=== PATIENT | male | born 1945 | race Caucasian/White ===

== ENCOUNTER → 2016-08-17 | Outpatient (CLI) | payer OTHER ==
[~2016-08-17] MED LIST: ASPEC81 PO; ATV1 PO; BRIM0.2S OPB; CARV25TA2 PO; FURO20TA PO; ISOS30TA3 PO; LEVO-14 PO; LISI-725 PO; LPT40 PO; LSX20 PO; MELO15TA10 PO; MULT-506 PO; NITR0.4S76 SL; NTRGSL/4 SL; PLV75 PO; POTA1CAP2 PO; ROSU20TA PO; TRAV0.00 OPB
== END | disposition home or self-care (01) ==
LOC: C.LABBC 08:13
PROVIDERS: ATTEND Urology
DX: N40.1 Benign prostatic hyperplasia with lower urinary tract symptoms (principal); Z12.5 Encounter for screening for malignant neoplasm of prostate

== ENCOUNTER 2016-08-30 11:05 | Inpatient (IN) | payer OTHER ==
[~2016-08-30] VITALS: Ht 167.6 cm; Wt 89.2 kg
[~2016-08-30 11:05] MED LIST changes: -ISOS30TA3 PO; -MULT-506 PO; -NTRGSL/4 SL; -ROSU20TA PO
[2016-08-30 12:12] LABS: HEMATOCRIT 43.7 % (42-52); MEAN CELL VOLUME 89.2 fL (80-100); MEAN CORPUSCULAR HEMOGLOBIN 32.9 pg (25-34); MEAN CORPUSCULAR HGB CONC 36.8 g/dl (32-36); MEAN PLATELET VOLUME 10.8 fL (7.4-10.4); PLATELET COUNT 180 K/uL (130-400); WHITE BLOOD COUNT 6.51 K/uL (4.8-10.8)
--- NOTE | 2016-08-30 12:15 | DIAGNOSTIC IMAGING REPORT ---
CHEST ONE VIEW PORTABLE CLINICAL HISTORY: syncope COMPARISON STUDY: 07/29/2016 FINDINGS: The heart is at the upper limits of normal in size. There is no lobar consolidation. There is no failure. There are no pleural effusions. Left basilar opacities are likely atelectatic.[ IMPRESSION: Linear left basilar opacities, likely atelectatic. No evidence of failure. No evidence of lobar consolidation Electronically signed by: Felix Moore M.D. 08/30/2016 12:13 PM Dictated Date/Time: 08/30/2016 12:12 PM
[2016-08-30 12:22] LABS: ALB/GLOB RATIO 1.1 (0.9-2); CREATININE 2.4 mg/dl (0.60-1.40); POTASSIUM 3.3 mmol/L (3.5-5.1)
[2016-08-30 12:25] LABS: CKMB/CK RATIO 1.9 (0-3.0)
[2016-08-30 12:29] LABS: INR 1.1 (0.9-1.1); PARTIAL THROMBOPLASTIN RATIO 0.9; PROTHROMBIN TIME (PATIENT) 11.7 SECONDS (9.0-12.0)
--- NOTE | 2016-08-30 12:29 | EMERGENCY ROOM VISIT NOTE ---
History Report prepared by Adelina: Yohana Henao Under the Supervision of: Dr. Iris Vallejo D.O. First contact with patient: 12:10 Chief Complaint: SYNCOPE Stated Complaint: SYNCOPE Nursing Triage Summary: pt to the ED with c/o not feeling well this am and then went to the gym and felt "out of sorts" and sat down and then passed out. no trauma, someone lowered him to the ground. no c/o pain hx previous AL and stent History of Present Illness The patient is a 71 year old male who presents to the Emergency Room via ambulance with complaints of a near syncopal episode that occurred this morning. The patient states that he was not feeling totally normal when he woke up this morning, although he was not feeling bad. He ate a banana and drank a half cup of coffee this morning and ended up going to the gym, although he was debating going back to bed due to not feeling great. He notes that he typically eats a bowl of cereal for breakfast. The patient did a bench press exercise, adductor and abductor exercises, and ran into a friend who he started talking to at the gym. While he was talking he started to feel slightly dizzy and sat down in a chair. His friend had her back to him for a minute and when she turned back around, the patient was slumped over in the chair and she caught him before he hit his head. An ambulance was called. He states that his pulse was initially week, but eventually seemed to improve. Upon arrival, he is feeling fine. He denies any previous episodes of dizziness or vertigo. He has been eating and drinking well recently. Denies supplement use or any new medications in the past few weeks. The patient notes that he had a heart attack this past January and had a stent placed at that time. The patient had some sharp chest pains this past July which seemed musculoskeletal but was hospitalized over night. He had a chest-pain work up including a stress test. The patient typically takes his medications in the morning with the exception of Plavix, which he takes at night. He forgot to take his dose last night so he took it with his medications this morning. Denies fevers, chills, chest pain, diarrhea, constipation, urinary symptoms, or other complaints. Source of History: patient Onset: this morning Position: other (global) Quality: other (syncope) Timing: other (episodic) Associated Symptoms: No chest pain, No chills, No diarrhea, No fevers, No urinary symptoms Review of Systems See HPI for pertinent positives & negatives. A total of 10 systems reviewed and were otherwise negative. Past Medical & Surgical Medical Problems: (1) Elevated troponin I level (2) Glaucoma (3) Hypertension (4) Non-STEMI (non-ST elevated myocardial infarction) (5) Seasonal allergies Family History Patient reports no known family medical history. Social History Smoking Status: Current Every Day Smoker Marital Status: Housing Status: lives with family Occupation Status: retired Current/Historical Medications Scheduled Aspirin (Aspirin EC Low Dose), 81 MG PO QAM Atorvastatin (Atorvastatin Calcium), 80 MG PO DAILY Carvedilol (Coreg), 25 MG PO BID Clopidogrel Bisulfate (Clopidogrel), 75 MG PO QAM Furosemide (Furosemide), 40 MG PO QAM Furosemide (Lasix), 20 MG PO QPM Lisinopril (Zestril), 20 MG PO DAILY Nitroglycerin (Nitroglycerin Lingual), 2 SPRAY SL DIRECTED Potassium Chloride (Potassium Chloride Er), 1 TAB PO DAILY Travoprost (Travatan Z), 1 DROPS OPB HS Scheduled PRN Levocetirizine Dihydrochloride (Levocetirizine Dihydrochl), 5 MG PO HS PRN for ALLERGIC REACTION Lorazepam (Lorazepam), 1 MG PO HS PRN for Sleep Meloxicam (Mobic), 15 MG PO DAILY PRN for Pain Miscellaneous Medications Brimonidine Tartrate-Timolol M (Combigan) Allergies Coded Allergies: Sulfa Antibiotics (Verified Allergy, Unknown, "Sulfa Drugs", 07/29/16) Physical Exam Vital Signs Date Time Temp Pulse Resp B/P Pulse Ox O2 Delivery O2 Flow Rate FiO2 08/30/16 14:08 62 16 149/90 96 Room Air 08/30/16 12:45 62 08/30/16 12:12 93 Room Air 08/30/16 11:49 62 126/75 69 115/68 70 122/65 08/30/16 11:16 68 08/30/16 11:09 36.5 66 16 141/87 95 Room Air Physical Exam HEENT: Head - normocephalic and atraumatic Pupils are equal, round, and reactive to light. Extraocular eye muscles are intact, and sclera are anicteric. Nose - moist nasal mucosa without discharge. Mouth - moist buccal mucosa. Oropharynx is nonerythematous and there is no tonsillar exudate or edema noted. Neck: Supple; no JVD, nuchal rigidity, cervical lymphadenopathy, or auscultated bruits. Heart: Regular rate and rhythm. There is a normal S1 and S2 with no murmurs, clicks, or gallops appreciated. Lungs: Clear to auscultation bilaterally with no wheezes, rales, or rhonchi. Abdomen: Soft, completely nontender, nondistended, with good bowel sounds. There are no palpable pulsatile masses or hepatosplenomegaly. There is no guarding, rigidity, or rebound noted. Extremities: No evidence of cyanosis, clubbing, or edema. There are easily palpable peripheral pulses. Skin: warm and dry with good turgor and no rashes. Medical Decision & Procedures ER Provider Diagnostic Interpretation: X-ray results as stated below per interpretation by me and the radiologist: CHEST ONE VIEW PORTABLE CLINICAL HISTORY: syncope COMPARISON STUDY: 07/29/2016 FINDINGS: The heart is at the upper limits of normal in size. There is no lobar consolidation. There is no failure. There are no pleural effusions. Left basilar opacities are likely atelectatic.[ IMPRESSION: Linear left basilar opacities, likely atelectatic. No evidence of failure. No evidence of lobar consolidation Electronically signed by: Felix Moore M.D. 08/30/2016 12:13 PM Dictated Date/Time: 08/30/2016 12:12 PM Laboratory Results Test 08/30/16 11:10 08/30/16 12:10 Globulin 3.9 gm/dl (2.5-4.0) Albumin/Globulin Ratio 1.1 (0.9-2) Thyroid Stimulating Hormone (TSH) 2.760 uIu/ml (0.300-4.500) Bedside Troponin I 0.110 ng/ml (0-0.045) Laboratory results per my review. Medications Administered Medications (Trade) Dose Ordered Sig/May Route Start Time Stop Time Status Last Admin Dose Admin Sodium Chloride 500 ml @ 999 mls/hr Q31M STAT IV 08/30/16 13:48 08/30/16 14:18 DC 08/30/16 14:10 999 MLS/HR Sodium Chloride (Nss 1000ml) 1,000 ml @ 250 mls/hr Q4H STAT IV 08/30/16 13:48 08/30/16 17:23 DC 08/30/16 14:41 250 MLS/HR Lorazepam (Ativan Tab) 1 mg HS PRN PO 08/30/16 14:45 08/31/16 15:22 DC 08/30/16 22:40 1 MG Procedure Medication: NSS 1000 ml @ 250 mls/hr IV, NSS 500 ml @ 999 mls/hr IV. ECG Indication: syncope (near syncope) Rate (beats per minute): 67 Rhythm: normal sinus Findings: PAC, PVC, RBBB ED Course 1212: The patient was evaluated in room C3. A complete history and physical examination were performed. Nursing notes and previous electronic medical records were reviewed. IV lock was established and labs were drawn as above. The patient was noted to be in bigeminy on the monitor. A twelve-lead EKG was performed. Patient went for a chest x-ray as described above. 1346: Upon reevaluation, the patient was resting comfortably. I discussed findings and results with the patient. He verbalized agreement of the treatment plan. 1348: Ordered NSS 1000 ml @ 250 mls/hr IV, NSS 500 ml @ 999 mls/hr IV. 1401: I spoke with Dr. Greenwood of the [facility] Hospital[facility] Service. The patient will be evaluated for further management and care. Medical Decision The patient is a 71 year old male who presents to the ED with an episode of near syncope. Differential diagnosis includes cardiac dysrhythmia, dehydration, hypoglycemia, medication side effects. Labs: point of care troponin .11, TSH 2.76, creatinine 2.4, up from 1.6, BUN 45 , glucose 121, potassium 3.3, coags are negative, no leukocytosis, stable H&H. This is a 71-year-old male patient who suffered a near-syncopal event at the gym today. The patient has a cardiac history with previous AL and stent placement. The patient had a near syncopal event today. On EKG, he had evidence of multifocal PVCs. Patient a mildly elevated troponin. I discussed the case with the [facility] Hospitalist and they will evaluate for further management to rule out cardiac dysrhythmia. Consults Time Called: 2400 Consulting Physician: Dr. Greenwood of the [facility] Returned Call: [address] Greenwood of the [facility] Hospitalist Service. The patient will be evaluated for further management and care. Impression Primary Impression: Near syncope Additional Impression: Multifocal PVCs Scribe Attestation The scribe's documentation has been prepared under my direction and personally reviewed by me in its entirety. I confirm that the note above accurately reflects all work, treatment, procedures, and medical decision making performed by me. Departure Information Dispostion Being Evaluated By Hospitalist Referrals An Castorena DO (PCP) Patient Instructions My [facility] Problem Qualifiers
[2016-08-30] MEDS ORDERED: SODIUM CHLORIDE 0.9% 1000ML 1,000 ML IV STA (13:48)
[2016-08-30] MEDS ORDERED: SODIUM CHLORIDE 0.9% 500ML 500 ML IV STA (13:48)
[2016-08-30] MEDS ORDERED: CETIRIZINE HCL 10 MG TAB PO PRN (14:45)
[2016-08-30] MEDS ORDERED: NITROGLYCERIN SL SPR 4.9 GM BTL SL SCH (14:45)
[2016-08-30] MEDS ORDERED: LORAZEPAM 1 MG TAB PO PRN (14:45)
[2016-08-30] MEDS ORDERED: NITROGLYCERIN 0.4 MG SL PER TAB CHARGE SL PRN (14:45)
[2016-08-30] MEDS ORDERED: LORAZEPAM 2 MG/ML 1 ML VIAL IV PRN (15:00)
[2016-08-30] MEDS ORDERED: MoRPHine SULFATE 2 MG/ML CARP IV PRN (15:00)
[2016-08-30] MEDS ORDERED: ZOLPIDEM TARTRATE 5 MG TAB PO PRN (15:00)
[2016-08-30] MEDS ORDERED: ONDANSETRON INJ 2 MG/ML 2 ML VIAL IV PRN (15:00)
[2016-08-30] MEDS ORDERED: DiphenhydrAMINE HCL 50 MG/ML VIAL IV PRN (15:00)
[2016-08-30] MEDS ORDERED: ACETAMINOPHEN 325 MG TAB PO PRN (15:00)
[2016-08-30] MEDS ORDERED: ALUMINUM/MAGNESIUM/SIMETH (MAALOX MAX) 30 ML UDC PO PRN (15:00)
[2016-08-30] MEDS ORDERED: PROMETHAZINE HCL INJ 12.5 MG in SODIUM CHLORIDE 0.9% 50ML 50 ML IV PRN (15:00)
[2016-08-30] MEDS ORDERED: MAGNESIUM HYDROXIDE SUSP 30 ML UDC PO PRN (15:00)
[2016-08-30 15:19] VITALS: O2SAT 96; Ht 167.6 cm; Wt 89.2 kg
--- NOTE | 2016-08-30 16:17 | History and Physical ---
History & Physical Date & Time of Service: Aug 30, 2016 at 16:07 Chief Complaint: Syncope Primary Care Physician: An Castorena DO History of Present Illness Source: patient The patient is a 71-year-old male who presents to the emergency department via ambulance after having a near syncopal episode at his gym earlier this morning. He reports that when he woke up this morning he was not feeling normal, but he thought if he went to the gym workout will be might feel better. On talking to a friend of his at the gym during the workout, he started to feel dizzy and she caught him as he was starting to collapse and sat him down in the chair. He does have a history of a heart attack in January 2016 when he had a stent placed. He was also hospitalized July due to sharp chest pains but the workup was negative at that time. Past Medical/Surgical History Medical Problems: (1) Glaucoma Status: Chronic (2) Hypertension Status: Chronic (3) Seasonal allergies Status: Chronic Family History Patient reports no known family medical history. Social History Smoking Status: Current Every Day Smoker Smokeless Tobacco Use: No Alcohol Use: none Drug Use: none Marital Status: Housing status: lives with family Occupational Status: retired Immunizations History of Tetanus Vaccine?: 02/2004 History of Pneumococcal: No History of Hepatitis B Vaccine: No Multi-Drug Resistant Organisms History of MDRO: No Allergies Coded Allergies: Sulfa Antibiotics (Verified Allergy, Unknown, "Sulfa Drugs", 07/29/16) Home Medications Scheduled Aspirin (Aspirin EC Low Dose), 81 MG PO QAM Atorvastatin (Atorvastatin Calcium), 80 MG PO DAILY Carvedilol (Coreg), 25 MG PO BID Clopidogrel Bisulfate (Clopidogrel), 75 MG PO QAM Furosemide (Furosemide), 40 MG PO QAM Furosemide (Lasix), 20 MG PO QPM Lisinopril (Zestril), 20 MG PO DAILY Nitroglycerin (Nitroglycerin Lingual), 2 SPRAY SL DIRECTED Potassium Chloride (Potassium Chloride Er), 1 TAB PO DAILY Travoprost (Travatan Z), 1 DROPS OPB HS Scheduled PRN Levocetirizine Dihydrochloride (Levocetirizine Dihydrochl), 5 MG PO HS PRN for ALLERGIC REACTION Lorazepam (Lorazepam), 1 MG PO HS PRN for Sleep Meloxicam (Mobic), 15 MG PO DAILY PRN for Pain Miscellaneous Medications Brimonidine Tartrate-Timolol M (Combigan) Review of Systems The patient denies chest pain, palpitations, shortness of breath,lower extremity swelling, vision change, hearing change, sore throat, fevers, chills, weight change, fatigue, nausea, vomiting, abdominal pain, pelvic pain, blood in urine or stool, dysuria, urinary frequency or urgency, memory loss, rash, abnormal bruising or bleeding, imbalance, focal weakness, numbness or tingling in arms or legs, arthralgias or myalgias, back or neck pain, night sweats, or allergy symptoms. The review of systems is otherwise negative other than for that already noted above, and at least 10 systems have been reviewed. Physical Exam Vital Signs Date Time Temp Pulse Resp B/P Pulse Ox O2 Delivery O2 Flow Rate FiO2 08/30/16 15:19 96 Room Air 08/30/16 14:08 62 16 149/90 96 Room Air 08/30/16 12:45 62 08/30/16 12:12 93 Room Air 08/30/16 11:49 62 126/75 69 115/68 70 122/65 08/30/16 11:16 68 08/30/16 11:09 36.5 66 16 141/87 95 Room Air The patient is awake, well-developed and adequately nourished, alert and oriented 3, normocephalic and atraumatic, lying in bed and in no acute distress. HEENT--PERRL, EOMI, mucous membranes moist, and oropharynx normal. Neck--supple, no JVD or bruits, thyroid normal, trachea midline, no adenopathy. Heart--normal S1 and S2, no extra beats, no murmurs, rubs or gallops. Lungs--clear bilaterally with good air movement, no respiratory distress, no accessory muscle use. Abdomen--normal bowel sounds and soft, nontender and nondistended, no hernias or masses, no organomegaly. Extremities--no cyanosis, clubbing or edema. There are good distal pulses b/l. Dermatologic--normal skin turgor, normal color, warm and dry, no abnormal lymph nodes, no rash. Neurologic--cranial nerves II through XII grossly intact, motor and sensory examination normal. Rheumatologic--normal range of motion, nontender, muscles and joints. Psychiatric--normal affect. Diagnostics Laboratory Results Results Past 24 Hours Test 08/30/16 11:10 08/30/16 12:10 08/30/16 14:49 Range/Units White Blood Count 6.51 4.8-10.8 K/uL Red Blood Count 4.90 4.7-6.1 M/uL Hemoglobin 16.1 14.0-18.0 g/dL Hematocrit 43.7 42-52 % Mean Corpuscular Volume 89.2 80-100 fL Mean Corpuscular Hemoglobin 32.9 25-34 pg Mean Corpuscular Hemoglobin Concent 36.8 32-36 g/dl RDW Standard Deviation 41.9 36.4-46.3 fL RDW Coefficient of Variation 12.9 11.5-14.5 % Platelet Count 180 130-400 K/uL Mean Platelet Volume 10.8 7.4-10.4 fL Prothrombin Time 11.7 9.0-12.0 SECONDS Prothromb Time International Ratio 1.1 0.9-1.1 Activated Partial Thromboplast Time 24.3 21.0-31.0 SECONDS Partial Thromboplastin Ratio 0.9 Sodium Level 139 136-145 mmol/L Potassium Level 3.3 3.5-5.1 mmol/L Chloride Level 97 98-107 mmol/L Carbon Dioxide Level 33 21-32 mmol/L Anion Gap 9.0 3-11 mmol/L Blood Urea Nitrogen 45 7-18 mg/dl Creatinine 2.40 0.60-1.40 mg/dl Est Creatinine Clear Calc Drug Dose 29.8 ml/min Estimated GFR () 30.3 Estimated GFR (Non- 26.2 BUN/Creatinine Ratio 19.0 10-20 Random Glucose 121 70-99 mg/dl Calcium Level 10.0 8.5-10.1 mg/dl Total Bilirubin 1.1 0.2-1 mg/dl Aspartate Amino Transf (AST/SGOT) 26 15-37 U/L Alanine Aminotransferase (ALT/SGPT) 45 12-78 U/L Alkaline Phosphatase 95 45-117 U/L Total Creatine Kinase 118 39-308 U/L Creatine Kinase MB 2.2 0.5-3.6 ng/ml Creatine Kinase MB Ratio 1.9 0-3.0 Total Protein 8.0 6.4-8.2 gm/dl Albumin 4.1 3.4-5.0 gm/dl Globulin 3.9 2.5-4.0 gm/dl Albumin/Globulin Ratio 1.1 0.9-2 Thyroid Stimulating Hormone (TSH) 2.760 0.300-4.500 uIu/ml Bedside Troponin I 0.110 0-0.045 ng/ml Diagnostic Radiology Patient Name: SANDEEP MILLER Unit Number: [id number] Dictated: 08/30/161211 Transcribed: 08/30/161211 ARG Printed Date/Time: [~ rep prt dt]/[~ rep prt tm] [~ rep ct labl] - [~ rep ct ivnm] [facility] [place] [place] [address] Dictated: 08/30/161211 Transcribed: 08/30/161211 ARG Printed Date/Time: [~ rep prt dt]/[~ rep prt tm] [~ rep ct labl] - [~ rep ct ivnm] CHEST ONE VIEW PORTABLE CLINICAL HISTORY: syncope COMPARISON STUDY: 07/29/2016 FINDINGS: The heart is at the upper limits of normal in size. There is no lobar consolidation. There is no failure. There are no pleural effusions. Left basilar opacities are likely atelectatic.[ IMPRESSION: Linear left basilar opacities, likely atelectatic. No evidence of failure. No evidence of lobar consolidation Electronically signed by: Felix Moore M.D. 08/30/2016 12:13 PM Dictated Date/Time: 08/30/2016 12:12 PM The status of this report is Signed. Draft = Not yet reviewed or approved by Radiologist. Signed = Reviewed and approved by Radiologist. <AttendingPhy></AttendingPhy> <FamilyPhy>An Castorena DO</FamilyPhy> < PrimaryPhy>An Castorena DO</PrimaryPhy> <UnitNumber>[id number]</ UnitNumber> <VisitNumber>[id number]</VisitNumber> <PatientName>SANDEEP MILLER</ PatientName> <DateOfBirth>1945</DateOfBirth> <Location>[facility]</Location> < ServiceDate>08/30/16</ServiceDate> <MNE>ESINDI</MNE> <OrderingPhy>ED, PROTOCOL</ OrderingPhy> <OrderingPhyMNE>f rep ord dr arango</OrderingPhyMNE> <DictatingPhyMNE> f rep dict dr arango</DictatingPhyMNE> <CCListMNE>f rep ct conchita</CCListMNE> < AdmittingPhyMNE>f pt admit dr arango</AdmittingPhyMNE> <AttendingPhyMNE>f pt attend dr arango</AttendingPhyMNE> <ConsultingPhyMNE>f pt consult dr arango</ConsultingPhyMNE> <FamilyPhyMNE>f pt fam dr arango</FamilyPhyMNE> <OtherPhyMNE>f pt other dr arango</OtherPhyMNE> < PrimaryPhyMNE>f pt prim care dr arango</PrimaryPhyMNE> <ReferringPhyMNE>f pt referring dr arango</ReferringPhyMNE> EKG EKG shows normal sinus rhythm at 67 minutes, right bundle branch block, PVCs, no acute ST-T changes. Impression Assessment and Plan Near syncope, with elevated troponin 0.110, and history of [place] requiring stent in January 2016--the patient will be admitted to the telemetry unit, for serial cardiac enzymes, cardiac rhythm monitoring, and a 2-D echocardiogram with Dopplers. We'll continue enteric-coated aspirin 81 mg by mouth daily, carvedilol 25 mg by mouth twice a day, clopidogrel 75 mg by mouth every morning , nitroglycerin sublingual when necessary. We will hold furosemide 40 mg every morning and 20 mg every afternoon, lisinopril 20 mg by mouth daily, potassium chloride 10 mEq by mouth daily due to renal dysfunction. The patient typically follows with Dr. Nolen from cardiology, and we will order a cardiology consult. Renal insufficiency--hold diuretics as noted above, and hold meloxicam 15 mg by mouth daily. We'll follow serial BMP and magnesium levels. Hypercholesterolemia--continue atorvastatin 80 mg by mouth daily. Allergy substances to cetirizine 10 mg by mouth daily when necessary. Anxiety/insomnia--continue lorazepam 1 mg by mouth at bedtime when necessary. Glaucoma--continue Travatan Z 0.004% 1 drop OPB at bedtime and Combigan as directed. Level of Care Telemetry Advanced Directives Existing Advance Directive: No Existing Living Will: No Existing Power of Rubber Tubing Backer: No Resuscitation Status FULL RESUSCITATION VTE Prophylaxis VTE Risk Assessment Done? Y/N: Yes Risk Level: Moderate Given or contraindicated: SCD's Social Service Consult None Apply
[2016-08-30 16:33] VITALS: O2SAT 95
[2016-08-30] MEDS ORDERED: LORAZEPAM INJ 0.5 MG in SYRINGE 0.75 ML IV PRN (17:30)
[2016-08-30 17:38] VITALS: BP 152/98; PULSE 65; TEMP 36.3; O2SAT 96
[2016-08-30 18:17] LABS: CKMB/CK RATIO 2.2 (0-3.0)
[2016-08-30] MEDS ORDERED: NURSING VERBAL MED ORDER ONE ×2 (19:00)
[2016-08-30] MEDS: SODIUM CHLORIDE 0.9% 1000ML 1,000 ML IV SCH (19:16)
[2016-08-30 19:23] VITALS: BP 122/81; PULSE 71
[2016-08-30] MEDS: NITROGLYCERIN OINT 2% 1GM PACKET EXT SCH (19:24)
[2016-08-30] MEDS: CARVEDILOL 25 MG TAB PO SCH (19:26)
[2016-08-30 20:01] VITALS: BP 127/82; PULSE 69; TEMP 36.4; O2SAT 91
[2016-08-30] MEDS ORDERED: TRAVOPROST Z 0.004% OPH SOLN 2.5 ML BTL OPB SCH (21:00)
[2016-08-30 23:07] LABS: CKMB/CK RATIO 1.8 (0-3.0)
[2016-08-30 23:31] VITALS: BP 110/67; PULSE 62; TEMP 36.7; O2SAT 94
[2016-08-31] MEDS: NITROGLYCERIN OINT 2% 1GM PACKET EXT SCH ×3 (00:39→13:30)
[2016-08-31 03:00] VITALS: BP 110/66; PULSE 58; TEMP 36.6; O2SAT 95
[2016-08-31 06:49] LABS: BASO % 0.9 %; BASO ABS # 0.06 K/uL (0-0.2); COMPLETE YES; EOS % 11.6 %; HEMATOCRIT 37.3 % (42-52); IG% 0.1 %; LYMPH % 12.6 %; LYMPH ABS # 0.88 K/uL (1.2-3.4); MEAN CELL VOLUME 88.8 fL (80-100); MEAN CORPUSCULAR HEMOGLOBIN 31.7 pg (25-34); MEAN CORPUSCULAR HGB CONC 35.7 g/dl (32-36); MEAN PLATELET VOLUME 10.4 fL (7.4-10.4); MONO % 13.3 %; NEUT % 61.5 %; PLATELET COUNT 150 K/uL (130-400)
[2016-08-31 07:01] LABS: INR 1.1 (0.9-1.1); PROTHROMBIN TIME (PATIENT) 11.8 SECONDS (9.0-12.0)
[2016-08-31 07:02] VITALS: BP 100/57; PULSE 94; TEMP 36.7; O2SAT 93
[2016-08-31 07:17] LABS: BUN/CREATININE RATIO 24.7 (10-20); CALCIUM 8.5 mg/dl (8.5-10.1); CREATININE 1.8 mg/dl (0.60-1.40); MAGNESIUM 2.2 mg/dl (1.8-2.4); POTASSIUM 3.2 mmol/L (3.5-5.1)
[2016-08-31] MEDS ORDERED: POTASSIUM CHLORIDE 10 MEQ TABCR PO STA (07:34)
[2016-08-31 07:35] LABS: CKMB/CK RATIO 1.6 (0-3.0)
[2016-08-31] MEDS: SODIUM CHLORIDE 0.9% 1000ML 1,000 ML IV SCH (08:13)
[2016-08-31] MEDS ORDERED: POTASSIUM CHLORIDE 10 MEQ TABCR PO SCH (09:00)
[2016-08-31] MEDS ORDERED: CLOPIDOGREL BISULFATE 75 MG TAB PO SCH (09:00)
[2016-08-31] MEDS ORDERED: ATORVASTATIN 40 MG TAB PO SCH (09:00)
[2016-08-31] MEDS ORDERED: ASPIRIN 81 MG ECTAB PO SCH (09:00)
[2016-08-31] MEDS ORDERED: LISINOPRIL 20 MG TAB PO SCH (09:00)
[2016-08-31] MEDS: POTASSIUM CHLR 10 MEQ / WTR 10 MEQ in PREMIXED WATER 100 ML IV SCH ×2 (09:53→12:00)
[2016-08-31] MEDS: CARVEDILOL 25 MG TAB PO SCH (09:54)
--- NOTE | 2016-08-31 10:52 | ECHOCARDIOGRAM REPORT ---
*NOTICE TO RECEIVING LIBERTARIAN AGENCY This information is strictly Confidential and protected under [place] law. [place] law prohibits you from making any further disclosure of this information unless further disclosure is expressly permitted by the written consent of the person to whom it pertains or is authorized by law. A general authorization for the release of medical or other information is not sufficient for this purpose. Hospital accepts no responsibility if the information is made available to any other person, INCLUDING THE PATIENT. Interpretation Summary * Name: SANDEEP MILLER Study Date: 08/31/2016 09:24 AM BP: 149/90 mmHg * Patient Location: [facility] HR: 72 * : 1945 (M/d/yyyy) Gender: Male Height: 66 in * Age: 71 yrs Ethnicity: [place] Weight: 200 lb * Ordering Physician: Terence Greenwood * Referring Physician: Self, Referred * Performed By: Jie Lee RCS * * Reason For Study: CAD / ELEVATED TROPONIN * BSA: 2.0 m2 * -- Conclusions -- * 1. Normal LV size, mild concentric LVH. * 2. Normal LV systolic function. LVEF 55-60%. Mild septal hypokinesis. Moderate apical hypokinesis. * 3. Grade I diastolic dysfunction. * 4. Normal RV size and function. * 5. No significant valvular pathology. * 6. Compared with prior study on 07/30/2016: No significant changes. Procedure Details * A complete two-dimensional transthoracic echocardiogram was performed (2D, M-mode, Doppler and color flow Doppler). Left Ventricle * The left ventricle is grossly normal size. * There is mild concentric left ventricular hypertrophy. * The basal septum is thickened and angulated consistent with sigmoid septum. * Ejection Fraction = 55-60%. * There is mild septal hypokinesis. * There is moderate apical wall hypokinesis. Right Ventricle * The right ventricle is grossly normal size. * The right ventricular systolic function is normal as assessed by tricuspid annular plane systolic excursion (TAPSE) (normal >1.5 cm). Atria * The left atrial size is normal. * Right atrial size is normal. * No ASD detected; PFO is not assessed. Mitral Valve * The mitral valve leaflets appear thickened, but open well. * There is no mitral valve stenosis. * There is trace mitral regurgitation. Tricuspid Valve * The tricuspid valve is not well visualized, but is grossly normal. * There is no tricuspid stenosis. * There is trace tricuspid regurgitation. Aortic Valve * The aortic valve opens well. * The aortic valve is trileaflet. * No hemodynamically significant valvular aortic stenosis. * There is no significant aortic regurgitation. Pulmonic Valve * The pulmonary valve is inadequately visualized, but the Doppler data is adequate for interpretation. * There is no pulmonic valvular stenosis. * Trace pulmonic valvular regurgitation. Great Vessels * The aortic root and proximal ascending aorta are normal sized. Pericardium/Pleural * There is no pericardial effusion. Great Vessels * IVC < 2.1, No change with respiration. Estimated RA pressure 8 mmHg Left Ventricular Diastolic Function * Grade I diastolic dysfunction, (abnormal relaxation pattern). MMode 2D Measurements and Calculations Ao root diam 3.7 cm Ao root area 10.5 cm\S\2 ACS 1.9 cm LA dimension 4.3 cm LA/Ao 1.2 LVAd ap4 32.5 cm\S\2 LVLd ap4 7.5 cm EDV(MOD-sp4) 114.3 ml EDV(sp4-el) 118.8 ml LVAs ap4 19.1 cm\S\2 LVLs ap4 6.1 cm ESV(MOD-sp4) 49.3 ml ESV(sp4-el) 50.3 ml EF(MOD-sp4) 56.8 % EF(sp4-el) 57.7 % LVAd ap2 37.0 cm\S\2 LVLd ap2 8.0 cm EDV(MOD-sp2) 134.8 ml EDV(sp2-el) 146.0 ml LVAs ap2 19.8 cm\S\2 LVLs ap2 6.7 cm ESV(MOD-sp2) 47.5 ml ESV(sp2-el) 50.0 ml EF(MOD-sp2) 64.8 % EF(sp2-el) 65.8 % LVLd %diff 5.3 % EDV(MOD-bp) 130.1 ml LVLs %diff 8.2 % ESV(MOD-bp) 50.4 ml EF(MOD-bp) 61.2 % SV(MOD-sp4) 65.0 ml SI(MOD-sp4) 32.5 ml/m\S\2 SV(MOD-sp2) 87.3 ml SI(MOD-sp2) 43.7 ml/m\S\2 SV(MOD-bp) 79.7 ml SI(MOD-bp) 39.8 ml/m\S\2 SV(sp4-el) 68.6 ml SI(sp4-el) 34.3 ml/m\S\2 SV(sp2-el) 96.1 ml SI(sp2-el) 48.0 ml/m\S\2 Doppler Measurements and Calculations MV E max elis 48.0 cm/sec MV A max elis 105.7 cm/sec MV E/A 0.45 MV P1/2t max elis 52.0 cm/sec MV P1/2t 84.7 msec MVA(P1/2t) 2.6 cm\S\2 MV dec slope 179.8 cm/sec\S\2 MV dec time 0.27 sec Ao V2 max 131.0 cm/sec Ao max PG 6.9 mmHg Ao max PG (full) -0.23 mmHg LV V1 max PG 7.1 mmHg LV V1 max 133.2 cm/sec PA V2 max 80.0 cm/sec PA max PG 2.6 mmHg
[2016-08-31 11:43] VITALS: BP 119/68; PULSE 76; TEMP 36.4; O2SAT 92
--- NOTE | 2016-08-31 12:30 | Hospitalist Progress Note ---
Hospitalist Progress Note Date of Service Aug 31, 2016. Subjective Pt evaluation today including: conversation w/ patient, physical exam, chart review, lab review, review of studies, review of inpatient medication list The patient reports feeling well with no complaints. He has been kept NPO for his echo study this morning. He is urinating without any difficulties. The patient denies fevers, chills, sweats, lightheadedness, dizziness, loss of consciousness or near-syncope, chest pain, palpitations, claudication, cough, wheezing, shortness of breath, nausea, vomiting, abdominal pain, dysuria, hematuria, urinary retention, paralysis, weakness, numbness and tingling. Additional Comments: See HPI for pertinent positives and negatives. All other systems reviewed and negative. Objective Vital Signs Date Time Temp Pulse Resp B/P Pulse Ox O2 Delivery O2 Flow Rate FiO2 08/31/16 11:43 36.4 76 18 119/68 92 Room Air 08/31/16 07:50 Room Air 08/31/16 07:02 36.7 94 18 100/57 93 Room Air 08/31/16 04:00 Room Air 08/31/16 03:00 36.6 58 18 110/66 95 Room Air 08/31/16 00:00 Room Air 08/30/16 23:31 36.7 62 18 110/67 94 Room Air 08/30/16 20:01 36.4 69 16 127/82 91 Room Air 08/30/16 20:00 Room Air 08/30/16 19:23 71 122/81 08/30/16 17:38 36.3 65 16 152/98 96 Room Air 08/30/16 17:05 Room Air 08/30/16 16:33 63 16 131/87 95 Room Air 08/30/16 15:19 96 Room Air 08/30/16 14:08 62 16 149/90 96 Room Air 08/30/16 12:45 62 08/30/16 12:12 93 Room Air Physical Exam General Appearance: WD/WN, no apparent distress, + obese Eyes: normal inspection, PERRL, EOMI ENT: normal ENT inspection, hearing grossly normal, pharynx normal Neck: supple, no JVD, trachea midline Respiratory/Chest: lungs clear, normal breath sounds, no respiratory distress Cardiovascular: regular rate, rhythm, no gallop, no murmur Abdomen: normal bowel sounds, non tender, soft Extremities: non-tender, normal inspection, no pedal edema Neurologic/Psychiatric: alert, normal mood/affect, oriented x 3 Skin: normal color, warm/dry, no rash Laboratory Results Last 24 Hours Test 08/30/16 12:10 08/30/16 17:35 08/30/16 22:35 08/31/16 06:36 Bedside Troponin I 0.110 ng/ml Total Creatine Kinase 98 U/L 112 U/L 132 U/L Creatine Kinase MB 2.2 ng/ml 2.0 ng/ml 2.1 ng/ml Creatine Kinase MB Ratio 2.2 1.8 1.6 Troponin I 0.255 ng/ml 0.223 ng/ml 0.229 ng/ml White Blood Count 7.00 K/uL Red Blood Count 4.20 M/uL Hemoglobin 13.3 g/dL Hematocrit 37.3 % Mean Corpuscular Volume 88.8 fL Mean Corpuscular Hemoglobin 31.7 pg Mean Corpuscular Hemoglobin Concent 35.7 g/dl Platelet Count 150 K/uL Mean Platelet Volume 10.4 fL Neutrophils (%) (Auto) 61.5 % Lymphocytes (%) (Auto) 12.6 % Monocytes (%) (Auto) 13.3 % Eosinophils (%) (Auto) 11.6 % Basophils (%) (Auto) 0.9 % Neutrophils # (Auto) 4.31 K/uL Lymphocytes # (Auto) 0.88 K/uL Monocytes # (Auto) 0.93 K/uL Eosinophils # (Auto) 0.81 K/uL Basophils # (Auto) 0.06 K/uL RDW Standard Deviation 41.8 fL RDW Coefficient of Variation 12.9 % Immature Granulocyte % (Auto) 0.1 % Immature Granulocyte # (Auto) 0.01 K/uL Prothrombin Time 11.8 SECONDS Prothromb Time International Ratio 1.1 Activated Partial Thromboplast Time 25.7 SECONDS Partial Thromboplastin Ratio 1.0 Sodium Level 142 mmol/L Potassium Level 3.2 mmol/L Chloride Level 102 mmol/L Carbon Dioxide Level 30 mmol/L Anion Gap 10.0 mmol/L Blood Urea Nitrogen 44 mg/dl Creatinine 1.80 mg/dl Est Creatinine Clear Calc Drug Dose 39.4 ml/min Estimated GFR () 42.9 Estimated GFR (Non- 37.0 BUN/Creatinine Ratio 24.7 Random Glucose 104 mg/dl Calcium Level 8.5 mg/dl Magnesium Level 2.2 mg/dl Total Bilirubin 0.9 mg/dl Direct Bilirubin 0.3 mg/dl Aspartate Amino Transf (AST/SGOT) 23 U/L Alanine Aminotransferase (ALT/SGPT) 33 U/L Alkaline Phosphatase 77 U/L Total Protein 6.3 gm/dl Albumin 3.3 gm/dl Diagnostic Results Reviewed the following studies and agree with interpretation as follows: Patient Name: SANDEEP MILLER Unit Number: [id number] Dictated: 08/30/161211 Transcribed: 08/30/161211 ARG Printed Date/Time: [~ rep prt dt]/[~ rep prt tm] [~ rep ct labl] - [~ rep ct ivnm] [facility] [place] [address] Dictated: 08/30/161211 Transcribed: 08/30/161211 ARG Printed Date/Time: [~ rep prt dt]/[~ rep prt tm] [~ rep ct labl] - [~ rep ct ivnm] Patient: SANDEEP MILLER Address1: [address] [place] [address] Rec: [id number] Address2: [place] [address] Acct ID: [id number] [facility] Zip: [place] [address] Date: 1945 Sex: M Room/Bed: Ref Phy: An Castorena DO SC: BRITT Att Phy: Report #: [id number] Candice Phy: An Castorena DO Test: CXR1P Admit Phy: Traffic Engineering Director: EULALIA Interpreting Phy: Felix Moore M.D. Diagnosis: SYNCOPE Ordering Phy: ED, PROTOCOL Service Date: 08/30/16 Admit Date: 08/30/16 MNE: [id number] CONF: DICTATED BY: Felix Moore M.D.]] CC: Iris Vallejo D.O. Dellegrotti, Cara M., DO ED,PROTOCOL Endcc: [~ rep ct add3]] CHEST ONE VIEW PORTABLE CLINICAL HISTORY: syncope COMPARISON STUDY: 07/29/2016 FINDINGS: The heart is at the upper limits of normal in size. There is no lobar consolidation. There is no failure. There are no pleural effusions. Left basilar opacities are likely atelectatic.[ IMPRESSION: Linear left basilar opacities, likely atelectatic. No evidence of failure. No evidence of lobar consolidation Electronically signed by: Felix Moore M.D. 08/30/2016 12:13 PM Dictated Date/Time: 08/30/2016 12:12 PM The status of this report is Signed. Draft = Not yet reviewed or approved by Radiologist. Signed = Reviewed and approved by Radiologist. <AttendingPhy></AttendingPhy> <FamilyPhy>An Castorena DO</FamilyPhy> < PrimaryPhy>An Castorena DO</PrimaryPhy> <UnitNumber>[id number]</ UnitNumber> <VisitNumber>[id number]</VisitNumber> <PatientName>SANDEEP MILLER</ PatientName> <DateOfBirth>1945</DateOfBirth> <Location>C.EDC</Location> < ServiceDate>08/30/16</ServiceDate> <MNE>ESINDI</MNE> <OrderingPhy>ED, PROTOCOL</ OrderingPhy> <OrderingPhyMNE>f rep ord dr arango</OrderingPhyMNE> <DictatingPhyMNE> f rep dict dr arango</DictatingPhyMNE> <CCListMNE>f rep ct mne</CCListMNE> < AdmittingPhyMNE>f pt admit dr arango</AdmittingPhyMNE> <AttendingPhyMNE>f pt attend dr arango</AttendingPhyMNE> <ConsultingPhyMNE>f pt consult dr arango</ConsultingPhyMNE> <FamilyPhyMNE>f pt fam dr arango</FamilyPhyMNE> <OtherPhyMNE>f pt other dr arango</OtherPhyMNE> < PrimaryPhyMNE>f pt prim care dr arango</PrimaryPhyMNE> <ReferringPhyMNE>f pt referring dr arango</ReferringPhyMNE> [address] [place] [address] Performing Location: [facility] Patient Name: SANDEEP MILLER Dictating Provider: Corby Bolton MD Dictation Date: Report Signed By: Date: 1945 Line Prep Cook: DARON Room/Bed: [facility] Family Physician: An Elizondo DO SC: C.MED Primary Care Physician: An Elizondo DO Adm Date: 08/30/16 Attending Physician: Jimmie Duran MD, PhD Dis Date: Admitting Physician: Terence Greenwood M.D. Ordering Physician: *NOTICE TO RECEIVING DEMOCRAT AGENCY This information is strictly Confidential and protected under [place] law. [place] law prohibits you from making any further disclosure of this information unless further disclosure is expressly permitted by the written consent of the person to whom it pertains or is authorized by law. A general authorization for the release of medical or other information is not sufficient for this purpose. Hospital accepts no responsibility if the information is made available to any other person, INCLUDING THE PATIENT. Interpretation Summary * Name: SANDEEP MILLER Study Date: 08/31/2016 09:24 AM BP: 149/90 mmHg * Patient Location: [facility] HR: 72 * : 1945 (M/d/yyyy) Gender: Male Height: 66 in * Age: 71 yrs Ethnicity: [place] Weight: 200 lb * Ordering Physician: Terence Greenwood * Referring Physician: Self, Referred * Performed By: Jie Lee, [facility] * * Reason For Study: CAD / ELEVATED TROPONIN * BSA: 2.0 m2 * -- Conclusions -- * 1. Normal LV size, mild concentric LVH. * 2. Normal LV systolic function. LVEF 55-60%. Mild septal hypokinesis. Moderate apical hypokinesis. * 3. Grade I diastolic dysfunction. * 4. Normal RV size and function. * 5. No significant valvular pathology. * 6. Compared with prior study on 07/30/2016: No significant changes. Procedure Details * A complete two-dimensional transthoracic echocardiogram was performed (2D, M-mode, Doppler and color flow Doppler). Left Ventricle * The left ventricle is grossly normal size. * There is mild concentric left ventricular hypertrophy. * The basal septum is thickened and angulated consistent with sigmoid septum. * Ejection Fraction = 55-60%. * There is mild septal hypokinesis. * There is moderate apical wall hypokinesis. Right Ventricle * The right ventricle is grossly normal size. * The right ventricular systolic function is normal as assessed by tricuspid annular plane systolic excursion (TAPSE) (normal >1.5 cm). Atria * The left atrial size is normal. * Right atrial size is normal. * No ASD detected; PFO is not assessed. Mitral Valve * The mitral valve leaflets appear thickened, but open well. * There is no mitral valve stenosis. * There is trace mitral regurgitation. Tricuspid Valve * The tricuspid valve is not well visualized, but is grossly normal. * There is no tricuspid stenosis. * There is trace tricuspid regurgitation. Aortic Valve * The aortic valve opens well. * The aortic valve is trileaflet. * No hemodynamically significant valvular aortic stenosis. * There is no significant aortic regurgitation. Pulmonic Valve * The pulmonary valve is inadequately visualized, but the Doppler data is adequate for interpretation. * There is no pulmonic valvular stenosis. * Trace pulmonic valvular regurgitation. Great Vessels * The aortic root and proximal ascending aorta are normal sized. Pericardium/Pleural * There is no pericardial effusion. Great Vessels * IVC < 2.1, No change with respiration. Estimated RA pressure 8 mmHg Left Ventricular Diastolic Function * Grade I diastolic dysfunction, (abnormal relaxation pattern). MMode 2D Measurements and Calculations Ao root diam 3.7 cm Ao root area 10.5 cm\S\2 ACS 1.9 cm LA dimension 4.3 cm LA/Ao 1.2 LVAd ap4 32.5 cm\S\2 LVLd ap4 7.5 cm EDV(MOD-sp4) 114.3 ml EDV(sp4-el) 118.8 ml LVAs ap4 19.1 cm\S\2 LVLs ap4 6.1 cm ESV(MOD-sp4) 49.3 ml ESV(sp4-el) 50.3 ml EF(MOD-sp4) 56.8 % EF(sp4-el) 57.7 % LVAd ap2 37.0 cm\S\2 LVLd ap2 8.0 cm EDV(MOD-sp2) 134.8 ml EDV(sp2-el) 146.0 ml LVAs ap2 19.8 cm\S\2 LVLs ap2 6.7 cm ESV(MOD-sp2) 47.5 ml ESV(sp2-el) 50.0 ml EF(MOD-sp2) 64.8 % EF(sp2-el) 65.8 % LVLd %diff 5.3 % EDV(MOD-bp) 130.1 ml LVLs %diff 8.2 % ESV(MOD-bp) 50.4 ml EF(MOD-bp) 61.2 % SV(MOD-sp4) 65.0 ml SI(MOD-sp4) 32.5 ml/m\S\2 SV(MOD-sp2) 87.3 ml SI(MOD-sp2) 43.7 ml/m\S\2 SV(MOD-bp) 79.7 ml SI(MOD-bp) 39.8 ml/m\S\2 SV(sp4-el) 68.6 ml SI(sp4-el) 34.3 ml/m\S\2 SV(sp2-el) 96.1 ml SI(sp2-el) 48.0 ml/m\S\2 Doppler Measurements and Calculations MV E max elis 48.0 cm/sec MV A max elis 105.7 cm/sec MV E/A 0.45 MV P1/2t max elis 52.0 cm/sec MV P1/2t 84.7 msec MVA(P1/2t) 2.6 cm\S\2 MV dec slope 179.8 cm/sec\S\2 MV dec time 0.27 sec Ao V2 max 131.0 cm/sec Ao max PG 6.9 mmHg Ao max PG (full) -0.23 mmHg LV V1 max PG 7.1 mmHg LV V1 max 133.2 cm/sec PA V2 max 80.0 cm/sec PA max PG 2.6 mmHg Assessment and Plan 71 y/o male with a history of CAD, NSTEMI with stent in LAD in 01/2016, HTN, HLD , BPH, and glaucoma who presented to the ED on 09/09 with dizziness and a near- syncopal episode. EKG sinus rhythm with PVCs, inverted T waves in inferior and anterolateral leads. CXR with left basilar opacities which likely represent atelectasis. POC troponin elevated at 0.11. Near-syncope, h/o NSTEMI w/cardiac stent in January 2016 -Admit to telemetry -Trend cardiac enzymes. CK and CKMB negative, troponin trending downward: 0.255-->0.223-->0.229. Troponin has been elevated since his NSTEMI in January but has been trending downwards -Cardiac consulted, appreciate recs -Repeat echocardiogram: mild concentric LVH, normal left ventricular systolic function, LVEF 55-60%. Mild septal hypokinesis, moderate apical hypokinesis. No significant valvular disease. No significant change from 07/30/16 study. -Repeat EK bpm, sinus rhythm with PACs, RBBB, T wave inversions in inferior and anterolateral leads -Continue carvedilol 25 mg PO BID -Continue ASA 81 and Plavix 75 mg PO qd Hypokalemia -Potassium 3.3 upon arrival, 3.2 on 08/31 -KCl 20 mEq PO x 1, 10 mEq IV x 1 -Recheck PRP at 1400, continue to monitor Acute kidney injury--baseline creatinine around 1.4 -Creatinine 2.4 upon arrival. Received 500 mL bolus and fluids in ED -Creatinine 1.8 on 08/31 -Continue IVF NSS at 80 cc/hr -Continue to monitor with PRP HTN--stable -Continue lisinopril 20 mg PO qd HLD -Continue atorvastatin 80 mg PO qd DVT prophylaxis -Heparin 5000 units SC q8h -ALISON Ledezma Code Status -Level I, FULL RESUSCITATION STATUS
--- NOTE | 2016-08-31 12:46 | CARDIOLOGY CONSULTATION ---
DATE OF CONSULTATION: 08/31/2016 CONSULTING PHYSICIAN: Dr. Duran. REASON FOR CONSULTATION: Syncope/elevated troponin. HISTORY OF PRESENT ILLNESS: Mr. Bustamante is a very pleasant 71-year-old man with a history of coronary artery disease status post anterior STEMI back in January of 2016, who was admitted in the setting of syncope and found to have elevated troponins on admission. Cardiology consulted for further management. He is followed as an outpatient by Dr. Nolen. The patient's prior cardiac history is summarized below. In brief, presented with midscapular back pain, diaphoresis and dyspnea back in January of 2016, was found to have a proximally occluded LAD which was treated with a 2.25 x 18 Resolute drug-eluting stent. He was also noted to have mild to moderate residual disease in his obtuse marginals and RCA. At that time, EF was reduced, approximately 35%. More recently, he was admitted 1 month ago in the setting of atypical resting chest pain. At that time, troponin was mildly elevated at 0.45. The patient underwent repeat dobutamine stress echocardiogram which showed now resolved cardiomyopathy with EF 50-55% with some residual anterior septal and apical hypokinesis. No dobutamine-induced wall motion abnormalities. He was discharged to home, was followed up as an outpatient with cardiology and was doing well. The night prior to current admission, he states that he drank about 6 ounces of whiskey around 10:00 p.m., woke up in the morning, did not feel great, but decided he would do his normal exercise routine. The patient is very active at baseline, exercises 5 times a week, doing cardio on recumbent bike or row machine Saturday, Saturday, Saturday, and doing strength training on Tuesdays and . He had started doing his normal strength training routine without any preceding chest pain, palpitations, presyncope, until while taking a break, talking to a friend started to feel somewhat dizzy, sat down and then apparently passed out. The patient regained consciousness soon, afterwards denied shortness of breath, chest pain or palpitations. He was brought to the Emergency Department where initially he was hemodynamically stable. Initial EKG was unchanged from prior. Initial troponin was positive at 0.26. Orthostatics were negative. He was started on IV fluids, placed on a Nitro patch, given his home aspirin and Plavix, and admitted to telemetry. Overnight, the patient had no recurrent presyncopal symptoms, had no chest pain. Telemetry was unremarkable other than sinus rhythm in the 70s and occasional PACs/PVCs. This morning the patient is feeling well, near his baseline, but no other new symptoms. PAST MEDICAL HISTORY: 1. Coronary artery disease -- anterior STEMI 01/2016. Cardiac catheterization showed proximally occluded LAD which was treated with a 2.25 x 18 Resolute drug-eluting stent, 30% mid left circumflex, 30% left OM1, 35% OM3, 30-50% diffuse disease in the proximal RCA, 50% mid RCA, 70% early distal RCA stenosis. Dobutamine stress echo, normal resting LV function, EF 50-55%, no dobutamine stress induced arrhythmias, ST changes or wall motion abnormalities. 2. Dyslipidemia. 3. Glucose intolerance. 4. Resolved ischemic cardiomyopathy. 5. Lumbar disc disease. 6. Chronic ankle discomfort, status post ankle surgery. 7. Lumbar radiculopathy. 8. History of migraine headaches. 9. Sleep apnea. 10. Lumbar stenosis. PAST SURGICAL HISTORY: 1. Prior elbow surgery. 2. Prior arthroscopic knee surgery. 3. Post TURP. 4. Post ankle surgery. FAMILY HISTORY: History of alcoholism in his father. History of heart failure in his mother. Both his mother and brother have hypertension. ALLERGIES: INCLUDE SULFA. MULTIPLE ENVIRONAMENTAL ALLERGIES INCLUDING POLLEN, MOLD AND DUST MITES. SOCIAL HISTORY: The patient is retired. He drinks alcohol, had drank approximately 6 ounces of whiskey the night before, states this is a rare occasion. He smokes occasional cigars. He is and lives with his . HOME MEDICATIONS: Include: 1. Aspirin 81. 2. Atorvastatin 40. 3. Brimonidine. 4. Carvedilol 25 b.i.d. 5. Plavix 75 mg daily. 6. Furosemide 20 mg daily. 7. Levocetirizine. 8. Lisinopril 20. 9. Lorazepam. 10. Meloxicam. 11. Nitroglycerin sublingual tabs. 12. Potassium. 13. Travoprost eyedrops. REVIEW OF SYSTEMS: Ten-point review of systems is completed and otherwise negative other than listed in HPI. PHYSICAL EXAMINATION: VITAL SIGNS: Temperature 36.7, pulse 94, blood pressure 100/57, he is satting 93% on room air. GENERAL: The patient appears comfortable, in no acute distress. He is alert and oriented x3. HEENT: Sclerae are anicteric. Oropharynx is clear. Mucous membranes are moist. NECK: Supple with no lymphadenopathy. LUNGS: Clear to auscultation bilaterally. CARDIAC: He has a regular rate and rhythm with 2/6 systolic ejection murmur heard best at left upper sternal border. Otherwise, no significant murmurs, rubs or gallops. ABDOMEN: Soft, nontender, nondistended, with positive bowel sounds. EXTREMITIES: Warm. He has intact distal pulses. There is trace scant lower extremity edema. NEUROLOGIC: Cranial nerves II-XII are grossly intact. The remainder of exam is nonfocal. DATA: Sodium 142, potassium 3.2, BUN 44, creatinine 1.8 down from 2.4 on presentation. White blood cell count 7, hemoglobin 13.3, platelets of 150. INR 1.1. TSH within normal limits. Albumin 3.3. Remainder of LFTs within normal limits. Initial troponin 0.26 to 0.22 to 0.23. IMAGING: Chest x-ray showed linear left basilar opacity, likely atelectasis. EKG, normal sinus rhythm at a rate of 67. Occasional PVCs. There is left axis deviation, right bundle-branch block and prolonged QTc. There are some precordial nonspecific ST/T wave inversions, not significantly changed from prior EKGs. Echo from today showed normal LV function with an EF of 55-60%. There was mild septal hypokinesis, moderate apical hypokinesis, otherwise no significant change from prior. IMPRESSION AND PLAN: 1. Syncope. 2. Mildly elevated troponin. 3. History of severe coronary artery disease status post prior anterior ST-segment elevated myocardial infarction. 4. Acute on chronic renal insufficiency. 5. Hypokalemia. Patient here with a syncopal episode after recent exercise. This episode was not preceded by any cardiac symptoms and most notably the patient had been drinking significantly the night prior to this episode. The patient was not orthostatic on presentation but did have significant acute on chronic renal insufficiency which is improved with IV hydration overnight. Suspicion is that symptoms were secondary to dehydration/hypovolemia as opposed to acute cardiac event, either ACS or significant arrhythmia. The patient's mild troponin is likely chronic and not as elevated as was previously during last hospitalization. No significant change to EKG or echocardiogram. At this time, I feel that the patient is safe for discharge and will plan for followup with Dr. Nolen or myself in 1 week. In the interim, would continue on his current aspirin, Plavix, beta veronica and statin. I have encouraged patient to contact clinic or return to the Emergency Department if any recurrent chest pain or new symptoms. The patient understands. Thank you for allowing us to participate in the care of this patient. Please contact with any questions. [place]
--- NOTE | 2016-08-31 13:37 | Discharge Instructions ---
Discharge Instructions Admission Reason for Admission: Elevated Troponin I Level,Near Syncope Discharge Discharge Diagnosis / Problem: Near syncopal episode Discharge Goals Goal(s): Learn about illness, Diagnostic testing, Screening Activity Recommendations Activity Limitations: resume your previous activity . Instructions / Follow-Up Instructions / Follow-Up You were admitted to the hospital for observation following a near-syncopal episode (nearly fainting) on 08/30. Due to your cardiac history of a recent heart attack with stent placement in January of 2016, you were kept for cardiac evaluation. During your stay, your cardiac rhythm remained stable. Your cardiac enzymes, chemicals that are released when your heart muscles are damaged , were checked periodically, and although these were elevated, this appears to be a chronic state for you. Compared to your last hospitalization in July of 2016, your troponin, a cardiac enzyme, is actually significantly improved. You were also dehydrated when you presented to the hospital, resulting in acute kidney injury, and this kidney injury is also likely contributing to your elevated troponin. A repeat EKG and echocardiogram (ultrasound of your heart) showed no changes and were not concerning for another heart attack. From a cardiology standpoint, Dr. Bolton has cleared you for discharge. You may resume your home medications as previously prescribed. Please follow up with Dr. Bolton in 1 week. Please also follow up with your primary care provider in 1 week regarding your hospital stay. Please seek medical attention if you experience fevers, chills, sweats, loss of consciousness, chest pain, shortness of breath, numbness or tingling, nausea, or vomiting. Current Hospital Diet Patient's current hospital diet: AHA Diet (Heart Healthy) Discharge Diet Recommended Diet: AHA Diet (Heart Healthy) Pending Studies Studies pending at discharge: no Medical Emergencies . Who to Call and When: Medical Emergencies: If at any time you feel your situation is an emergency, please call 911 immediately. . Non-Emergent Contact Non-Emergency issues call your: Primary Care Provider, Griddle Attendant Call Non-Emergent contact if: you have a fever, your pain is not controlled, your pain is worsening, your pain is concerning you, you have any medication questions . Past History Medical & Surgical History: (1) Near syncope (2) Elevated troponin I level (3) Hypertension . "Provider Documentation" section prepared by Josephine Guerra. VTE Core Measure Inpt VTE Proph given/why not?: Unfractionated heparin SQ, SCD's
--- NOTE | 2016-08-31 13:41 | Discharge Summary ---
Discharge Summary Admission Date: Aug 30, 2016 at 14:53 Discharge Date: Aug 31, 2016 Discharge Disposition: Home Principal Diagnosis: Near syncope Immunizations: History of Tetanus Vaccine?: 02/2004 History of Pneumococcal: No History of Hepatitis B Vaccine: No Procedures: [address] [place] [address] Performing Location: [facility] Patient Name: SANDEEP MILLER Dictating Provider: Corby Bolton MD Dictation Date: Report Signed By: Date: 1945 Class C Driver: DARON Room/Bed: [facility] Family Physician: An Elizondo DO SC: C.MED Primary Care Physician: An Elizondo DO Adm Date: 08/30/16 Attending Physician: Jimmie Duran MD, PhD Dis Date: Admitting Physician: Terence Greenwood M.D. Ordering Physician: *NOTICE TO RECEIVING [employer] This information is strictly Confidential and protected under [place] law. [place] law prohibits you from making any further disclosure of this information unless further disclosure is expressly permitted by the written consent of the person to whom it pertains or is authorized by law. A general authorization for the release of medical or other information is not sufficient for this purpose. Hospital accepts no responsibility if the information is made available to any other person, INCLUDING THE PATIENT. Interpretation Summary * Name: SANDEEP MILLER Study Date: 08/31/2016 09:24 AM BP: 149/90 mmHg * Patient Location: [facility] HR: 72 * : 1945 (M/d/yyyy) Gender: Male Height: 66 in * Age: 71 yrs Ethnicity: [place] Weight: 200 lb * Ordering Physician: Terence Greenwood * Referring Physician: Self, Referred * Performed By: Jie Lee RCS * * Reason For Study: CAD / ELEVATED TROPONIN * BSA: 2.0 m2 * -- Conclusions -- * 1. Normal LV size, mild concentric LVH. * 2. Normal LV systolic function. LVEF 55-60%. Mild septal hypokinesis. Moderate apical hypokinesis. * 3. Grade I diastolic dysfunction. * 4. Normal RV size and function. * 5. No significant valvular pathology. * 6. Compared with prior study on 07/30/2016: No significant changes. Procedure Details * A complete two-dimensional transthoracic echocardiogram was performed (2D, M-mode, Doppler and color flow Doppler). Left Ventricle * The left ventricle is grossly normal size. * There is mild concentric left ventricular hypertrophy. * The basal septum is thickened and angulated consistent with sigmoid septum. * Ejection Fraction = 55-60%. * There is mild septal hypokinesis. * There is moderate apical wall hypokinesis. Right Ventricle * The right ventricle is grossly normal size. * The right ventricular systolic function is normal as assessed by tricuspid annular plane systolic excursion (TAPSE) (normal >1.5 cm). Atria * The left atrial size is normal. * Right atrial size is normal. * No ASD detected; PFO is not assessed. Mitral Valve * The mitral valve leaflets appear thickened, but open well. * There is no mitral valve stenosis. * There is trace mitral regurgitation. Tricuspid Valve * The tricuspid valve is not well visualized, but is grossly normal. * There is no tricuspid stenosis. * There is trace tricuspid regurgitation. Aortic Valve * The aortic valve opens well. * The aortic valve is trileaflet. * No hemodynamically significant valvular aortic stenosis. * There is no significant aortic regurgitation. Pulmonic Valve * The pulmonary valve is inadequately visualized, but the Doppler data is adequate for interpretation. * There is no pulmonic valvular stenosis. * Trace pulmonic valvular regurgitation. Great Vessels * The aortic root and proximal ascending aorta are normal sized. Pericardium/Pleural * There is no pericardial effusion. Great Vessels * IVC < 2.1, No change with respiration. Estimated RA pressure 8 mmHg Left Ventricular Diastolic Function * Grade I diastolic dysfunction, (abnormal relaxation pattern). MMode 2D Measurements and Calculations Ao root diam 3.7 cm Ao root area 10.5 cm\S\2 ACS 1.9 cm LA dimension 4.3 cm LA/Ao 1.2 LVAd ap4 32.5 cm\S\2 LVLd ap4 7.5 cm EDV(MOD-sp4) 114.3 ml EDV(sp4-el) 118.8 ml LVAs ap4 19.1 cm\S\2 LVLs ap4 6.1 cm ESV(MOD-sp4) 49.3 ml ESV(sp4-el) 50.3 ml EF(MOD-sp4) 56.8 % EF(sp4-el) 57.7 % LVAd ap2 37.0 cm\S\2 LVLd ap2 8.0 cm EDV(MOD-sp2) 134.8 ml EDV(sp2-el) 146.0 ml LVAs ap2 19.8 cm\S\2 LVLs ap2 6.7 cm ESV(MOD-sp2) 47.5 ml ESV(sp2-el) 50.0 ml EF(MOD-sp2) 64.8 % EF(sp2-el) 65.8 % LVLd %diff 5.3 % EDV(MOD-bp) 130.1 ml LVLs %diff 8.2 % ESV(MOD-bp) 50.4 ml EF(MOD-bp) 61.2 % SV(MOD-sp4) 65.0 ml SI(MOD-sp4) 32.5 ml/m\S\2 SV(MOD-sp2) 87.3 ml SI(MOD-sp2) 43.7 ml/m\S\2 SV(MOD-bp) 79.7 ml SI(MOD-bp) 39.8 ml/m\S\2 SV(sp4-el) 68.6 ml SI(sp4-el) 34.3 ml/m\S\2 SV(sp2-el) 96.1 ml SI(sp2-el) 48.0 ml/m\S\2 Doppler Measurements and Calculations MV E max elis 48.0 cm/sec MV A max elis 105.7 cm/sec MV E/A 0.45 MV P1/2t max elis 52.0 cm/sec MV P1/2t 84.7 msec MVA(P1/2t) 2.6 cm\S\2 MV dec slope 179.8 cm/sec\S\2 MV dec time 0.27 sec Ao V2 max 131.0 cm/sec Ao max PG 6.9 mmHg Ao max PG (full) -0.23 mmHg LV V1 max PG 7.1 mmHg LV V1 max 133.2 cm/sec PA V2 max 80.0 cm/sec PA max PG 2.6 mmHg Medication Reconciliation Continued Medications: Aspirin (Aspirin EC Low Dose) 81 Mg Ectab 81 MG PO QAM for 30 Days, #30 Atorvastatin (Atorvastatin Calcium) 40 Mg Tab 80 MG PO DAILY for 30 Days, #60 TAB Brimonidine Tartrate-Timolol M (Combigan) 1 Janey Janey #15 Carvedilol (Coreg) 25 Mg Tab 25 MG PO BID, TAB Clopidogrel Bisulfate (Clopidogrel) 75 Mg Tab 75 MG PO QAM for 30 Days, #30 TAB Furosemide (Furosemide) 20 Mg Tab 40 MG PO QAM Furosemide (Lasix) 20 Mg Tab 20 MG PO QPM, TAB Levocetirizine Dihydrochloride (Levocetirizine Dihydrochl) 5 Mg Tab 5 MG PO HS PRN for ALLERGIC REACTION Lisinopril (Zestril) 20 Mg Tab 20 MG PO DAILY, TAB Lorazepam (Lorazepam) 1 Mg Tab 1 MG PO HS PRN for Sleep, #45 Meloxicam (Mobic) 15 Mg Tab 15 MG PO DAILY PRN for Pain, TAB Nitroglycerin (Nitroglycerin Lingual) 0.4 Mg/[facility] Spr 2 SPRAY SL DIRECTED, #1 EA Potassium Chloride (Potassium Chloride Er) 10 Meq Cap 1 TAB PO DAILY, #30 Travoprost (Travatan Z) 0.004 % Mohit 1 DROPS OPB HS, ML Referrals At Discharge Follow up Referrals: Accounts Receivable Assistant Referral - Within 1 Week with Corby Bolton MD Discharge Exam Patient is feeling well and denies any complaints. See Hospitalist Progress Note 08/31/16 for HPI, ROS, and physical exam. Hospital Course 71 y/o male with a history of CAD, NSTEMI with stent in LAD in 01/2016, HTN, HLD , BPH, and glaucoma who presented to the ED on 09/09 with dizziness and a near- syncopal episode. EKG sinus rhythm with PVCs, inverted T waves in inferior and anterolateral leads. CXR with left basilar opacities which likely represent atelectasis. POC troponin elevated at 0.11. Near-syncope, h/o NSTEMI w/cardiac stent in January 2016 -Admitted to telemetry -Trend cardiac enzymes. CK and CKMB negative, troponin trending downward: 0.255-->0.223-->0.229. Troponin has been elevated since his NSTEMI in January but has been trending downwards -Cardiac consulted, appreciate recs: no acute cardiac events, pt is clear for discharge and will follow up with Dr. Bolton or Dr. Nolen in 1 week. Continue current medications. -Repeat echocardiogram: mild concentric LVH, normal left ventricular systolic function, LVEF 55-60%. Mild septal hypokinesis, moderate apical hypokinesis. No significant valvular disease. No significant change from 07/30/16 study. -Repeat EK bpm, sinus rhythm with PACs, RBBB, T wave inversions in inferior and anterolateral leads -Continue carvedilol 25 mg PO BID -Continue ASA 81 and Plavix 75 mg PO qd Hypokalemia -Potassium 3.3 upon arrival, 3.2 on 08/31 -KCl 20 mEq PO x 1, 10 mEq IV x 1 Acute kidney injury--baseline creatinine around 1.4 -Creatinine 2.4 upon arrival. Received 500 mL bolus and fluids in ED -Creatinine 1.8 on 08/31 -IVF NSS at 80 cc/hr HTN--stable -Continue lisinopril 20 mg PO qd HLD -Continue atorvastatin 80 mg PO qd DVT prophylaxis -Heparin 5000 units SC q8h -ALISON Ledezma Code Status -Level I, FULL RESUSCITATION STATUS Dispo -EKGs and echo show no changes, ACS ruled out. Pt cleared for discharge as per cardiology. Resume home medications as previously prescribed. Total Time Spent: Greater than 30 minutes This includes examination of the patient, discharge planning, medication reconciliation, and communication with other providers. Discharge Instructions Please refer to the electronic Patient Visit Report (Discharge Instructions) for additional information.
[2016-08-31] MEDS ORDERED: HEPARIN SOD 5000 UNIT/0.5 ML CARP SQ SCH (14:00)
[2016-08-31 14:10] VITALS: BP 119/68; PULSE 76; TEMP 36.4; O2SAT 92
[2016-08-31 14:25] LABS: BUN/CREATININE RATIO 24.6 (10-20); CALCIUM 8.6 mg/dl (8.5-10.1); CREATININE 1.7 mg/dl (0.60-1.40)
[2016-08-31 15:24] LABS: POTASSIUM 3.7 mmol/L (3.5-5.1)
[2017-01-16] MEDS ORDERED: NTRGSL/4 SL (07:24)
[2017-01-16] MEDS ORDERED: ROSU20TA PO (07:24)
[2017-01-16] MEDS ORDERED: MULT-506 PO (07:29)
[2017-01-16] MEDS ORDERED: ISOS30TA3 PO (14:10)
== END 2016-08-31 15:22 | disposition home or self-care (01) | DRG 312 ==
LOC: ENRESERVDT → ENRESERVTM → EDBD 11:05 → C.EDC 11:07 → C.MED 14:53
PROVIDERS: ADMIT Hospitalist; ATTEND Hospitalist
DX: R55 Syncope and collapse (principal); N17.9 Acute kidney failure, unspecified; E86.0 Dehydration; R79.89 Other specified abnormal findings of blood chemistry; I49.3 Ventricular premature depolarization; I45.10 Unspecified right bundle-branch block; E87.6 Hypokalemia; I25.10 Atherosclerotic heart disease of native coronary artery without angina pectoris; I12.9 Hypertensive chronic kidney disease with stage 1 through stage 4 chronic kidney disease, or unspecified chronic kidney disease; N18.9 Chronic kidney disease, unspecified; E78.00 Pure hypercholesterolemia, unspecified; E78.5 Hyperlipidemia, unspecified; R73.02 Impaired glucose tolerance (oral); N40.0 Benign prostatic hyperplasia without lower urinary tract symptoms; H40.9 Unspecified glaucoma; M51.16 Intervertebral disc disorders with radiculopathy, lumbar region; G89.29 Other chronic pain; M25.579 Pain in unspecified ankle and joints of unspecified foot; G47.30 Sleep apnea, unspecified; G47.00 Insomnia, unspecified; F41.9 Anxiety disorder, unspecified; F17.210 Nicotine dependence, cigarettes, uncomplicated; I25.2 Old myocardial infarction; Z95.5 Presence of coronary angioplasty implant and graft; Z79.1 Long term (current) use of non-steroidal anti-inflammatories (NSAID); Z79.02 Long term (current) use of antithrombotics/antiplatelets; Z79.82 Long term (current) use of aspirin; Z79.899 Other long term (current) drug therapy

== ENCOUNTER → 2016-11-16 | Outpatient (CLI) | payer OTHER ==
[~2016-11-16] MED LIST changes: +AMIO200T4 PO; +ASPI81TA28 PO; +CHOL1000 PO; +CHOL2000 PO; +IMDSR30 PO; +ISOS30TA3 PO; +MULT-506 PO; +NITR0.1S SL; -NITR0.4S76 SL; +NTRGSL/4 SL; +OXYC-57 PO; +ROSU20TA PO; +TRAZ50TA35 PO; +WARF2.5T8 PO; +WARF5TAB90 PO
[2016-11-16 12:05] LABS: ALT/SGPT 43 U/L (12-78); AST/SGOT 24 U/L (15-37); BLOOD UREA NITROGEN 30 mg/dl (7-18); BUN/CREATININE RATIO 21.5 (10-20); CALCIUM 9.2 mg/dl (8.5-10.1); CARBON DIOXIDE 28 mmol/L (21-32); CHLORIDE 108 mmol/L (98-107); CHOLESTEROL 125 mg/dl (0-200); GLUCOSE 103 mg/dl (70-99); POTASSIUM 4.1 mmol/L (3.5-5.1); SODIUM 143 mmol/L (136-145); TRIGLYCERIDES 97 mg/dl (0-150); VERY LOW DENSITY LIPOPROT CALC 19 mg/dl
[2016-11-16 12:11] LABS: ALKALINE PHOSPHATASE 88 U/L (45-117); CHOLESTEROL/HDL RATIO 2.3; HDL CHOLESTEROL 55 mg/dl; LDL CHOLESTEROL CALCULATED 51 mg/dl; PROSTATE SPECIFIC ANTIGEN 0.841 ng/ml (0.000-4.000)
== END | disposition home or self-care (01) ==
LOC: C.LABBC 07:46
PROVIDERS: ATTEND Urology
DX: Z12.5 Encounter for screening for malignant neoplasm of prostate (principal); N40.1 Benign prostatic hyperplasia with lower urinary tract symptoms; I25.10 Atherosclerotic heart disease of native coronary artery without angina pectoris; N17.9 Acute kidney failure, unspecified

== ENCOUNTER → 2016-12-25 | Outpatient (CLI) | payer OTHER ==
[2016-12-25 15:13] LABS: CALCIUM 9.2 mg/dl (8.5-10.1)
[2016-12-25 15:20] LABS: BLOOD UREA NITROGEN 30 mg/dl (7-18); BUN/CREATININE RATIO 17.9 (10-20); CARBON DIOXIDE 27 mmol/L (21-32); CHLORIDE 107 mmol/L (98-107); GLUCOSE 93 mg/dl (70-99); POTASSIUM 3.9 mmol/L (3.5-5.1); SODIUM 142 mmol/L (136-145)
== END ==
LOC: C.LABBC 11:41
PROVIDERS: ATTEND Physician Assistant
DX: I10 Essential (primary) hypertension (principal)

== ENCOUNTER → 2016-12-31 | Outpatient (CLI) | payer OTHER ==
[2016-12-31 14:33] LABS: BLOOD UREA NITROGEN 28 mg/dl (7-18); BUN/CREATININE RATIO 16.5 (10-20); CARBON DIOXIDE 25 mmol/L (21-32); CHLORIDE 108 mmol/L (98-107); GLUCOSE 88 mg/dl (70-99); POTASSIUM 4.3 mmol/L (3.5-5.1); SODIUM 142 mmol/L (136-145)
== END | disposition home or self-care (01) ==
LOC: C.LABBC 11:43
PROVIDERS: ATTEND Nurse Practitioner Family
DX: N17.9 Acute kidney failure, unspecified (principal); R06.02 Shortness of breath

== ENCOUNTER → 2017-01-04 | Outpatient (CLI) | payer OTHER ==
[~2017-01-04] MED LIST changes: +REGADENOSON 0.4 MG/5 ML SYR ONE
--- NOTE | 2017-01-05 20:38 | MYOCARDIAL PERFUSION SCAN ---
ORDERING PHYSICIAN: Dr. Corby Bolton. PRIMARY CARE PHYSICIAN: Dr. An Crow. TIME: 1852 p.m. PROCEDURES: 1. Myocardial perfusion study performed in multiple views/images. 2. Pharmacologic Lexiscan stress ECG. INDICATIONS: 1. CAD. 2. Chest pain. 3. Shortness of breath. CONSENT: Informed written consent was obtained. PROCEDURAL DETAILS: For the stress portion of the study, Lexiscan 0.4 mg was intravenously administered over 10-15 seconds followed by saline flush. This was followed by 33.5 mCi of technetium-99m Cardiolite injected intravenously at 11:18 a.m. on 01/04/2017. Thirty minutes following the injection, imaging of the heart was performed in multiple projections. For the rest portion of the study 10.4 mCi of technetium-99m Cardiolite was injected intravenously at 9:45 a.m. on the same day. One hour following the injection, imaging of the heart was performed in the same projections. LEXISCAN ECG: Resting ECG demonstrated normal sinus rhythm at 64 beats per minute. Right bundle-branch block. Left anterior fascicular block. Lexiscan stress ECG demonstrated no significant ST changes. No arrhythmia. No significant pauses. Maximum heart rate was 80 beats per minute representing 53% maximum predicted heart rate. Resting blood pressure was 148/95 mmHg. Maximum blood pressure was 151/94 mmHg. No chest pain reported. Shortness of breath was reported. FINDINGS: Rotating raw imaging demonstrated motion artifact, more so on the rest compared to the stress imaging. There was no significant lung uptake. Myocardial perfusion demonstrated a large area of moderately to severely reduced uptake in the anterior wall from mid ventricle to apex which appeared fixed. There is moderate to severely reduced uptake in the anterior septum and septal angulo from base to apex which appeared fixed with mild reversibility. The apex had severely reduced uptake which was fixed in post-stress and rest imaging. Wall motion suggested akinesis to dyskinesis in the mid to distal anterior wall, mid to distal anteroseptum, and apex. Otherwise, global hypokinesis. Calculated ejection fraction was 27%. No significant transient ischemic dilation was noted visually. IMPRESSION: 1. Abnormal myocardial perfusion suggesting large LAD infarct with mild ischemia involving the anterior septum and septal angulo. 2. Severely reduced left ventricular systolic function with an ejection fraction of 27%. 3. Akinesis to dyskinesis of the mid to distal anterior wall, mid to distal anteroseptum, and apex. Otherwise, global hypokinesis. 4. No chest pain reported. Lexiscan-induced dyspnea was reported. 5. No arrhythmia. 6. Nondiagnostic Lexiscan ECG.
== END ==
LOC: C.NUCL 09:06
PROVIDERS: ATTEND Internal Medicine Interventional Cardiology
DX: E78.00 Pure hypercholesterolemia, unspecified (principal); I10 Essential (primary) hypertension; I25.10 Atherosclerotic heart disease of native coronary artery without angina pectoris; R07.0 Pain in throat; R06.02 Shortness of breath; R07.89 Other chest pain

== ENCOUNTER → 2017-01-14 | Outpatient (CLI) | payer OTHER ==
[~2017-01-14] MED LIST changes: -REGADENOSON 0.4 MG/5 ML SYR ONE
[2017-01-14 13:30] LABS: HEMATOCRIT 43.1 % (42-52); MEAN CELL VOLUME 91.3 fL (80-100); MEAN CORPUSCULAR HEMOGLOBIN 31.1 pg (25-34); MEAN CORPUSCULAR HGB CONC 34.1 g/dl (32-36); MEAN PLATELET VOLUME 11.7 fL (7.4-10.4); PLATELET COUNT 140 K/uL (130-400); RED BLOOD COUNT 4.72 M/uL (4.7-6.1)
[2017-01-14 13:40] LABS: INR 1.1 (0.9-1.1); PROTHROMBIN TIME (PATIENT) 11.5 SECONDS (9.0-12.0)
== END | disposition home or self-care (01) ==
LOC: C.LABBC 11:21
PROVIDERS: ATTEND Internal Medicine Cardiovascular Disease
DX: Z01.818 Encounter for other preprocedural examination (principal)

== ENCOUNTER → 2017-01-18 | Outpatient (CLI) | payer OTHER ==
[~2017-01-18] MED LIST changes: -LPT40 PO; -LSX20 PO; -NITR0.1S SL
[2017-01-18 14:02] LABS: BLOOD UREA NITROGEN 23 mg/dl (7-18); BUN/CREATININE RATIO 15.4 (10-20); CARBON DIOXIDE 27 mmol/L (21-32); CHLORIDE 109 mmol/L (98-107); GLUCOSE 89 mg/dl (70-99); MAGNESIUM 2.6 mg/dl (1.8-2.4); PHOSPHORUS 3.2 mg/dl (2.5-4.9); POTASSIUM 4.1 mmol/L (3.5-5.1); SODIUM 143 mmol/L (136-145)
[2017-01-18 14:03] LABS: URINE PROTIEN/CREAT RATIO 0.2 (0-0.2); URINE TOTAL PROTEIN 8.1 mg/dl (0-11.9)
[2017-01-18 14:08] LABS: URINE APPEARANCE CLEAR (CLEAR); URINE BILIRUBIN NEG (NEG); URINE COLOR YELLOW; URINE EPITHELIAL CELL AUTO 0-5 /lpf (0-5); URINE NITRITE NEG (NEG); URINE PH 6.5 (4.5-7.5); URINE SPECIFIC GRAVITY 1.012 (1.000-1.030); UROBILINOGEN NEG (NEG); ZZUR CULT IF INDIC CLEAN CATCH NO
[2017-01-18 14:10] LABS: MANUAL MICROSCOPIC REQUIRED? NO; REVIEW REQ? NO
[2017-01-18 14:49] LABS: CALCIUM 9.1 mg/dl (8.5-10.1)
--- NOTE | 2017-01-23 10:37 | CODING QUERY MEDICAL NECESSITY ---
SUPPORTING DIAGNOSIS NEEDED A supporting diagnosis is required for the test/procedure performed on this patient in order for us to be reimbursed by the patient's insurance. Please provide a supporting diagnosis for the following test/procedure listed below next to the test name along with your signature. *If there is no additional diagnosis for this patient that would support the following test/procedure please document that below next to the test/procedure. Test(s)/Procedure(s) that require a supporting diagnosis: * VITAMIN D, 25-HYDROXY DIAGNOSIS: Provider Signature: Date: Thank you Sonja [facility] Once completed, please kindly fax back to [phone] For questions please call [phone]
== END | disposition home or self-care (01) ==
LOC: C.LABBC 11:57
PROVIDERS: ATTEND Internal Medicine Nephrology
DX: N17.9 Acute kidney failure, unspecified (principal); E55.9 Vitamin D deficiency, unspecified

== ENCOUNTER 2017-06-25 06:13 | Observation (INO) | payer OTHER ==
[2017-06-25] VITALS (10 sets, daily range): BP systolic 119–182; BP diastolic 69–115; PULSE 44–61; TEMP 36.4–37.1; O2SAT 93–97; Ht 167.6 cm; Wt 86.2 kg
[~2017-06-25] VITALS: Ht 167.6 cm; Wt 86.2 kg
[~2017-06-25 06:13] MED LIST changes: -AMIO200T4 PO; -ASPI81TA28 PO; +CEFAZOLIN 1000MG IV PUSH 5 ML IV SCH; +CEFAZOLIN 2000MG IV PUSH 10 ML IV SCH; -CHOL1000 PO; -CHOL2000 PO; -IMDSR30 PO; -ISOS30TA3 PO; +LACTATED RINGER'S 1000ML 1,000 ML IV SCH; -OXYC-57 PO; -TRAZ50TA35 PO; -WARF2.5T8 PO; -WARF5TAB90 PO
[2017-06-25] MEDS ORDERED: ASPI81TA28 PO (07:05)
[2017-06-25] MEDS ORDERED: WARF5TAB90 PO (07:08)
[2017-06-25] MEDS ORDERED: WARF2.5T8 PO (07:09)
[2017-06-25] MEDS ORDERED: IMDSR30 PO (07:16)
[2017-06-25] MEDS ORDERED: TRAZ50TA35 PO (07:17)
[2017-06-25] MEDS ORDERED: CHOL1000 PO (07:18)
[2017-06-25] MEDS ORDERED: CHOL2000 PO (07:19)
[2017-06-25] MEDS ORDERED: AMIO200T4 PO (07:22)
[2017-06-25] MEDS ORDERED: LIDOCAINE HCL 1% 20 ML VIAL ONE (07:50)
[2017-06-25] MEDS ORDERED: BUPIVACAINE 0.5 % 5 MG/1 ML MPF 30ML VIAL ONE (07:50)
[2017-06-25] MEDS ORDERED: BACITRACIN 50000 UNIT VIAL ONE (07:51)
--- NOTE | 2017-06-25 08:31 | History & Physical Bridge Note ---
H&P Re-Evaluation Bridge Note: I have examined the patient, reviewed the History & Physical and in the interval since the performance of the History & Physical I have noted the following changes of clinical significance: No changes noted
--- NOTE | 2017-06-25 08:31 | Procedure Note ---
Pre-Mod Sedation Assessment General Date of Moderate Sedation: Jun 25, 2017. Vital Signs: Vital Signs Past 12 Hours Date Time Temp Pulse Resp B/P (MAP) Pulse Ox O2 Delivery O2 Flow Rate FiO2 06/25/17 07:15 36.9 54 18 156/88 (110) 96 Room Air Review Cardiovascular: regular rate, rhythm, + bradycardia Abdomen: soft Lungs: lungs clear Airway Class: II Pre-Sedation Airway Assessment Oral Cavity: Capped Teeth Hx of Sleep Apnea: Yes Smoking Status: Former Smoker Mallampati Classification: Class II Procedure Planning Contraindications-for Mod Sed: None Yes Notes The planned sedation has been discussed with the patient and consent obtained. I have identified the patient, determined the appropriateness of sedation and have assessed the patient immediately prior to the procedure. All medicine(s) and interventions are by my order.
[2017-06-25] MEDS ORDERED: FENTANYL CITRATE INJ 50 MCG/1 ML 2 ML VIAL ONE ×2 (08:38→09:43)
[2017-06-25] MEDS ORDERED: MIDAZOLAM HCL 5 MG/ML 1 ML VIAL ONE (08:38)
--- NOTE | 2017-06-25 10:14 | Procedure Note ---
Post-Mod Sedation Assessment General Date of Moderate Sedation Jun 25, 2017. Vital Signs: Vital Signs Past 12 Hours Date Time Temp Pulse Resp B/P (MAP) Pulse Ox O2 Delivery O2 Flow Rate FiO2 06/25/17 07:15 36.9 54 18 156/88 (110) 96 Room Air Review - Discharge Criteria Vital Signs Stable: Yes Alert/Oriented/Conversant: Yes Returned to Baseline Mental St: Yes Nausea Absent/Minimal: Yes Pain/Discomfort/Absent/Minimal: Yes Normal/Baseline Respirations: Yes Active Bleeding?: No Pt Received D/C Instructions: N/A Prescriptions Given: None Specific Proced. D/C Criteria Distal Pulses Present (Cardiac: N/A Groin site assessed-Card Cath: N/A Voided Prior To Discharge: N/A Discharged Patients Adult Escort/Transportation: N/A
[2017-06-25] MEDS ORDERED: NITROGLYCERIN 0.4 MG SL PER TAB CHARGE SL PRN (10:15)
[2017-06-25] MEDS ORDERED: LEVOCETIRIZINE DIHYDROCHLORIDE 5 MG PO PRN (10:15)
--- NOTE | 2017-06-25 10:15 | [facility] Post Operative Brief Note ---
Immediate Operative Summary Operative Date Jun 25, 2017. Pre-Operative Diagnosis icm, sinus bradycardia Post-Operative Diagnosis same Procedure(s) Performed dual chamber rate responsive ICD under fluroscopic guidance with peripheral venogram Surgeon nate cao Soldering Machine Operator Surgeon(s) none Estimated Blood Loss 15cc Findings see official report Fluids (cc crystalloids) 400cc Specimens none Drains none Anesthesia 5mg versed and 125mcg fentantyl Complication(s) None Disposition PCU
[2017-06-25] MEDS ORDERED: NURSING VERBAL MED ORDER ONE (11:30)
[2017-06-25] MEDS ORDERED: CARVEDILOL 25 MG TAB PO SCH (12:00)
[2017-06-25] MEDS ORDERED: ISOSORBIDE MONONITRATE 60 MG TABCR PO SCH (12:00)
[2017-06-25] MEDS ORDERED: FUROSEMIDE 40 MG TAB PO SCH (12:00)
[2017-06-25] MEDS: CLOPIDOGREL BISULFATE 75 MG TAB PO SCH (12:22)
[2017-06-25] MEDS: ACETAMINOPHEN 325 MG TAB PO PRN ×2 (12:27→23:52)
--- NOTE | 2017-06-25 12:27 | OPERATIVE REPORT ---
DICTATED BY: Dianne Middleton D.O. DATE OF OPERATION: 06/25/2017 PREOPERATIVE DIAGNOSIS: Ischemic cardiomyopathy and sinus bradycardia. POSTOPERATIVE DIAGNOSIS: Same. PROCEDURE: Dual chamber rate responsive implantable cardiac defibrillator under fluoroscopic guidance along with peripheral venogram. SURGEON: Dianne Middleton DO. MANDREL CLEANER: None. ANESTHESIA: Monitored conscious sedation administered under my supervision by Anita Hurtado. Start time 8:53 a.m. End time 10:05. A total of 5 mg of Versed, 125 mcg of fentanyl. INTRAVENOUS FLUIDS: 200 mL. BLOOD LOSS: 15 mL. ANTIBIOTICS: 2 grams of Ancef. CONTRAST: 10 mL of Isovue. BLOOD LOSS: Less than 20 mL. COMPLICATIONS: None. CONDITION: Stable. URINE OUTPUT: Not applicable. SPECIMENS: None. FINDINGS: See below. DRAINS: None. INDICATIONS FOR PROCEDURE: This is a 71-year-old gentleman who has a past medical history for ischemic cardiomyopathy, ejection fraction 2-305%, sinus bradycardia, history of pAF on amiodarone and coumadin since CABG, RBBB, LAFB, CAD s/p RI 2015 with PCI to ostium of LM and CABG x4 in 02/2017 (WHITAKER-LAD, SVG- OM1, SVG-Diag, SVG-RCA), HTN, HLD, DREA, [place], hypokalemia. Due to his sinus bradycardia, ischemic cardiomyopathy, he was recommended a dual chamber implantable cardiac defibrillator. CONSENT: Consent was obtained prior to the patient going into the electrophysiology lab. The patient was informed of risks, benefits, alternatives of procedure not limited to sudden cardiac ; cardiac arrhythmias; cerebrovascular accident; myocardial infarction; injury to the blood vessels, chamber of the heart, lungs, bleeding and infection. The patient understood and agreed to go to the procedure as planned. Informed consent was obtained. DESCRIPTION OF THE PROCEDURE: The patient was brought into the electrophysiology lab in a fasting state. He was connected to continuous environmental monitoring specialist. A timeout was performed to ensure patient's identity and procedure correctly. The patient was prepped and draped over the left subclavian space in normal surgical standard fashion. Moderate sedation was given throughout. Lowry precautions were maintained throughout the procedure. A 10 mL of 1% lidocaine, bupivacaine mixture were given in the left deltopectoral groove. Incision was made within left deltopectoral groove. Dissection was identified cephalic vein; however none was identified so peripheral venogram was performed. Then axillary venous access was obtained without any complication and the guidewire was inserted without any resistance. The 8-[place] sheath was inserted over the guidewire without any resistance and the dilator was removed. A second guidewire was inserted through the 8-[place] sheath to allow for retained venous access. The sheath was removed and a 9.5-[place] sheath was inserted over the guidewire resistance. The guidewire and dilator were removed. The right ventricular defibrillator lead was then advanced into the right ventricle and positioned into the right ventricular apex under fluoroscopic guidance-however the sensing was low and there was alot of ventricular ectopy so it was ultimately placed on the septum. There was adequate pacing and sensing thresholds and no diaphragmatic stimulation with high output pacing. The 9.5 sheath was peeled away and lead was fixated to pectoralis muscle using 0 silk suture. The 8-[place] sheath was then advanced over this retained guidewire without any resistance. The guidewire and dilator were removed. The right atrial pacing lead was advanced into the right atrium and positioned in the RA appendage under fluoroscopic guidance. We had stable sensing and thresholds, no diaphragmatic stimulation with high output pacing. The 8-[place] sheath was peeled away and lead was fixated to the pectoralis muscle using 0 silk suture. A defibrillator pocket was then created over the pectoralis muscle within the fascia using blunt dissection. The area was flushed with bacitracin saline wash and inspected for hemostasis. The defibrillator was then attached to the leads making sure that the pins were in appropriate position, passed the set screws and the set screws were all tightened. A stay stitch using 0 silk suture was used to secure the device to the pectoralis muscle. The incision was closed using a 2-0 Vicryl interrupted suture, followed by a 3-0 Vicryl interrupted suture, followed by a 4-0 Monocryl running stitch and Dermabond was applied and I followed them by a pressure dressing. EQUIPMENT: 1. Defibrillator Medtronic Evera MRI XT DR Clarke [id number], serial number [id number]. 2. Atrial lead Medtronic 5076-52 cm, serial number [id number]. 3. Right ventricular lead Medtronic 6935M-62 cm, serial [id number]. INTRAOPERATIVE TESTIN. Right atrial lead: P waves 1.4 millivolts, impedance 544 ohms, threshold 0.6 volts at 1.1 milliamp. 2. Right ventricular lead: R-wave 1.7 millivolts, impedance 449 ohms, threshold 0.4 volts at 0.8 milliamps. FINAL MEASUREMENTS THROUGH THE DEVICE: 1. Right atrial lead: P-waves 0.5 millivolts, impedance 399 ohms, threshold 0.75 volt at 0.4 milliseconds. 2. Right ventricular lead 1.6 millivolts (unipolar 2mV), impedance 380 ohms, threshold 0.5 volts at 0.4 milliseconds. 3. RV coil 49 ohms. FINAL PARAMETERS: 1. MP-R 60/130. Right atrial and right ventricular amplitude 3.5 volts, thresholds 4 milliseconds, sensitivity 0.3 millivolts. 2. A monitor VT zone at 140 beats per minute with 13 detection intervals. VT zone with 20 detection intervals at a heart rate of 76 beats per minute VF zone of 200 minute with 30/40 detection intervals. IMPRESSION: Successful implantation of a dual chamber implantable rate responsive cardiac defibrillator under fluoroscopic guidance secondary to sinus bradycardia and ischemic cardiomyopathy. PLAN: Monitor patient overnight, 12-lead ECG, chest x-ray. He can continue the medication. Stop amiodarone and coumadin; Start plavix. Not allowed to lift the left elbow over the left shoulder for 1 month and he is not to lift more than 10 pounds with the left arm for 2 weeks. He should follow up with the [facility] office for a device and wound check in 7-10 days. I attest to the content of the Intraoperative Record and any orders documented therein. Any exceptions are noted below. [place]
[2017-06-25] MEDS: OXYCODONE/ACETAMINOPHEN 5-325 TAB PO PRN (19:46)
[2017-06-25] MEDS: ISOSORBIDE MONONITRATE 60 MG TABCR PO SCH (19:50)
[2017-06-25] MEDS: ASPIRIN 81 MG ECTAB PO SCH (19:50)
[2017-06-25] MEDS: CARVEDILOL 25 MG TAB PO SCH (19:53)
[2017-06-25] MEDS ORDERED: TRAZODONE HCL 50 MG TAB PO SCH (21:00)
[2017-06-25] MEDS ORDERED: NON-FORMULARY MEDICATION (Brimonidine Tartrate-Timolol M (Combigan) 1 DROP) OPB SCH (21:00)
[2017-06-25] MEDS ORDERED: TRAVOPROST Z 0.004% OPH SOLN 2.5 ML BTL OPB SCH (21:00)
[2017-06-26] MEDS: OXYCODONE/ACETAMINOPHEN 5-325 TAB PO PRN ×2 (03:38→10:04)
[2017-06-26 04:00] VITALS: BP 143/88; PULSE 60; TEMP 36.8; O2SAT 96
--- NOTE | 2017-06-26 06:57 | DIAGNOSTIC IMAGING REPORT ---
CHEST 2 VIEWS ROUTINE CLINICAL HISTORY: Pacemaker placement COMPARISON STUDY: 08/30/2016 FINDINGS: There are postsurgical changes of a midline sternotomy. The heart is enlarged. There is no overt failure. There is no lobar consolidation. There are mild subsegmental atelectatic changes present. There is a right subclavian dual-chamber pacemaker/defibrillator present. The electrode position appears unremarkable. There is no pneumothorax.[ IMPRESSION: No pneumothorax status post right subclavian pacer/defibrillator placement Electronically signed by: Felix Moore M.D. 06/26/2017 6:56 AM Dictated Date/Time: 06/26/2017 6:55 AM
[2017-06-26 07:20] VITALS: BP 168/98; PULSE 61; TEMP 36.5; O2SAT 98
[2017-06-26] MEDS: CARVEDILOL 25 MG TAB PO SCH (08:23)
[2017-06-26] MEDS: CLOPIDOGREL BISULFATE 75 MG TAB PO SCH (08:23)
[2017-06-26] MEDS: ISOSORBIDE MONONITRATE 60 MG TABCR PO SCH (08:25)
[2017-06-26] MEDS: ASPIRIN 81 MG ECTAB PO SCH (08:25)
[2017-06-26] MEDS ORDERED: ROSUVASTATIN CALCIUM 20 MG TAB PO SCH (09:00)
[2017-06-26] MEDS ORDERED: POTASSIUM CHLORIDE 10 MEQ TABCR PO SCH (09:00)
[2017-06-26] MEDS ORDERED: FUROSEMIDE 40 MG TAB PO SCH (09:00)
[2017-06-26] MEDS ORDERED: CHOLECALCIFEROL 1000 INTER.UNIT TAB PO SCH (09:00)
[2017-06-26] MEDS ORDERED: PLV75 PO (09:46)
--- NOTE | 2017-06-26 09:48 | Discharge Instructions ---
Discharge Instructions Date of Service Jun 26, 2017. Admission Reason for Admission: Ischemic Cardiomyopathy Discharge Discharge Diagnosis / Problem: ICM, SB Discharge Goals Goal(s): Improve function Activity Recommendations Activity Limitations: as noted below Lifting Limitations: no more than 10 pounds (do not lift the right elbow over the right shoulder for 1 month; do not lift more than 10 pounds with the right arm for 2 weeks) Shower/Bathe: tomorrow Driving or Machine Use: resume 1 day after discharge . Current Hospital Diet Patient's current hospital diet: AHA Diet (Heart Healthy), Low Sodium Diet (2gm Na) Discharge Diet Recommended Diet: AHA Diet (Heart Healthy), Low Sodium Diet (2gm Na) Procedures Procedures Performed: dual chamber rate responsive ICD under fluroscopic guidance with peripheral venogram Pending Studies Studies pending at discharge: no Medical Emergencies . Who to Call and When: Medical Emergencies: If at any time you feel your situation is an emergency, please call 911 immediately. . Non-Emergent Contact Non-Emergency issues call your: Land Surveying Party Chief . . "Provider Documentation" section prepared by Dianne Middleton. . VTE Core Measure Inpt VTE Proph given/why not?: Treatment not indicated
--- NOTE | 2017-06-26 09:54 | Discharge Summary ---
Discharge Summary Date of Service Jun 26, 2017. Discharge Summary Admission Date: Jun 25, 2017 at 10:17 Discharge Date: Jun 26, 2017 Discharge Disposition: Home Principal Diagnosis: ICM Sinus bradycardia s/p dual chamber ICD implant Secondary Diagnoses/Problems: CAD h/o VT with LM ostial stent; and CABG 2017 x4 HLD Probably DREA post CABG pAF Insomnia Procedures: dual chamber rate responsive implantable cardiac defibrillator under fluoroscopic guidance with peripheral venogram Medication Reconciliation New Medications: Clopidogrel Bisulfate (Clopidogrel) 75 Mg Tab 75 MG PO QAM for 30 Days, #30 TAB Continued Medications: Aspirin (Aspirin Ec) 81 Mg Tab 81 MG PO BID Brimonidine Tartrate-Timolol M (Combigan) 1 Janey Janey 1 DROP OPB BID, #15 Carvedilol (Coreg) 25 Mg Tab 25 MG PO BID, TAB Cholecalciferol (Vitamin D3) 2,000 Unit Cap 1 CAP PO DAILY for 30 Days, #30 CAP 3 Refills Furosemide (Lasix) 20 Mg Tab 40 MG PO QAM, TAB Isosorbide Mononitrate (Isosorbide Mononitrate ER) 30 Mg Tabcr 60 MG PO BID Levocetirizine Dihydrochloride (Levocetirizine Dihydrochl) 5 Mg Tab 5 MG PO HS PRN for ALLERGIC REACTION Nitroglycerin (Nitrostat) 0.4 Mg Tab 1 TAB SL UD, #100 TAB 3 Refills Potassium Chloride (Potassium Chloride Er) 10 Meq Cap 1 TAB PO DAILY, #30 Rosuvastatin Calcium (Crestor) 20 Mg Tab 1 TAB PO DAILY for 30 Days, #30 TAB 5 Refills Travoprost (Travatan Z) 0.004 % Mohit 1 DROPS OPB HS, ML Trazodone Hcl (Trazodone) 50 Mg Tab 50 MG PO HS, TAB Discontinued Medications: Amiodarone Hcl (Cordarone) 200 Mg Tab 200 MG PO DAILY, TAB Warfarin Sod (Jantoven) 2.5 Mg Tab 2.5 MG PO DIRECTED, TAB Tue,Nichole,Sat Warfarin Sodium (Coumadin) 5 Mg Tab 5 MG PO DIRECTED, TAB MWF and Sun Admission Information Physical Exam (per Admitting): aaox3, NAD NC/AT, EOMI Supple, No JVD Nrl S1/S2 no murmur CTA b/l No w/r/r Soft NT/ND No edema b/l LE no focal deficits skin intact Hospital Course Pt admitted for elective ICD due to ICM and Sinus bradycardia. Pt underwent procedure without any complications. Monitored overnight and stopped his amiodarone and coumadin; restarted plavix. Discharged home next day Total time spent on discharge = 30 minutes This includes examination of the patient, discharge planning, medication reconciliation, and communication with other providers. Discharge Instructions ACTIVITY RECOMMENDATIONS: * Do not raise affected arm over head for 4 weeks. SPECIAL CARE INSTRUCTIONS: * If bleeding occurs, apply direct pressure to area for 5 minutes. * Call your doctor if you have severe pain, fever, drainage or bleeding at site. * Keep dry 24 hours. * Keep any scheduled doctor's appointment. * Implant Card - hand held device with website information given. SKIN IRRITATION: * You may experience some redness and/or swelling in the area where radiation was administered. If any skin irritation occurs, please contact your family physician. FOLLOW UP VISIT: Keep any scheduled doctor appointments.
--- NOTE | 2017-06-26 10:31 | Cardiology Follow-Up ---
Subjective Subjective Date of Service: Jun 26, 2017. Pt evaluation today including: conversation w/ patient, physical exam, chart review, lab review Pain: minimal discomfort at incision site Problem List Medical Problems: (1) CHF (congestive heart failure) Status: Acute (2) Elevated troponin Status: Acute (3) Multifocal PVCs Status: Acute (4) Near syncope Status: Acute (5) Non-ST elevation (NSTEMI) myocardial infarction Status: Acute Review of Systems Constitutional: No fatigue Respiratory: No shortness of breath, No dyspnea at rest Cardiac: No chest pain Abdomen: No nausea Psychiatric: + insomnia Endo: No fatigue Objective Vital Signs Last Vital Signs Documentation Date Time Temp Pulse Resp B/P (MAP) Pulse Ox O2 Delivery O2 Flow Rate FiO2 06/26/17 07:20 36.5 61 18 168/98 (121) 98 Room Air Physical Exam: General Appearance: WD/WN, no apparent distress, + obese Eyes: bilateral eyes PERRL, bilateral eyes EOMI ENT: normal ENT inspection, hearing grossly normal Respiratory/Chest: lungs clear, normal breath sounds Cardiovascular: regular rate, rhythm, no edema, no murmur Abdomen: normal bowel sounds, non tender, soft Extremities: no pedal edema Neurologic/Psychiatric: alert, oriented x 3 Skin: normal color, warm/dry (right pectoral incision intact; no hematoma mild ecchymosis) Assessment and Plan Impression: 1. ICM EF 20% s/p dual chamber ICD 06/25/2017 2. Sinus bradycardia 3. pAF post CABG-stopping amiodarone and coumadin 4. CAD h/o LM ostial stent; CABG 02/2017 5. HTN 6. HLD 7. Probable DREA 8. Insomnia Plan: Ok to discharge home today Stop amiodarone and coumadin start plavix Percocet prn pain do not lift the right elbow over the right shoulder for 1 month do not lift more than 10 pounds with the right arm fo r2 weeks f/u in our office for device and wound check in 1 week Discharge planning: home Medications: Medications Administered Medications (Trade) Dose Ordered Sig/May Route Start Time Stop Time Status Last Admin Dose Admin Lactated Ringer's 1,000 ml @ 15 mls/hr Q24H IV 06/25/17 06:00 06/26/17 05:59 DC 06/25/17 07:45 15 MLS/HR Cefazolin Sodium 10 ml @ 2.5 mls/min PREOP IV 06/25/17 06:00 06/25/17 14:00 DC 06/25/17 06:00 2.5 MLS/MIN Midazolam HCl (Versed Inj) 5 mg STK-MED ONCE .ROUTE 06/25/17 08:38 06/25/17 08:39 DC 06/25/17 08:38 5 MG Fentanyl Citrate (Fentanyl Inj) 100 mcg STK-MED ONCE .ROUTE 06/25/17 08:38 06/25/17 08:39 DC 06/25/17 08:38 100 MCG Fentanyl Citrate (Fentanyl Inj) 100 mcg STK-MED ONCE .ROUTE 06/25/17 09:43 06/25/17 09:44 DC 06/25/17 09:43 25 MCG Oxycodone/ Acetaminophen (Percocet 5-325mg Tab) 1 tab for pain scale 4-6 2 t... Q6H PRN PO 06/25/17 10:15 07/09/17 10:14 06/26/17 10:04 2 TAB Acetaminophen (Tylenol Tab) 650 mg Q4H PRN PO 06/25/17 10:15 07/25/17 10:14 06/25/17 23:52 650 MG Aspirin (Ecotrin Tab) 81 mg BID PO 06/25/17 21:00 07/25/17 20:59 06/26/17 08:25 81 MG Carvedilol (Coreg Tab) 25 mg BID PO 06/25/17 21:00 07/25/17 20:59 06/26/17 08:23 25 MG Furosemide (Lasix Tab) 40 mg QAM PO 06/26/17 09:00 07/26/17 08:59 06/26/17 08:24 40 MG Isosorbide Mononitrate (Imdur Ext Rel Tab) 60 mg BID PO 06/25/17 21:00 07/25/17 20:59 06/26/17 08:25 60 MG Rosuvastatin Calcium (Crestor Tab) 20 mg DAILY PO 06/26/17 09:00 07/26/17 08:59 06/26/17 08:24 20 MG Travoprost (Travatan Z) 1 drops HS OPB 06/25/17 21:00 07/25/17 20:59 06/25/17 19:47 1 DROPS Trazodone HCl (Desyrel Tab) 50 mg HS PO 06/25/17 21:00 07/25/17 20:59 06/25/17 19:51 50 MG Cholecalciferol (Vitamin D Tab) 2,000 inter.unit DAILY PO 06/26/17 09:00 07/26/17 08:59 06/26/17 08:24 2,000 INTER.UNIT Potassium Chloride (Klor-Con M10) 10 meq DAILY PO 06/26/17 09:00 07/26/17 08:59 06/26/17 08:23 10 MEQ Clopidogrel Bisulfate (plAVix TAB) 75 mg QAM PO 06/25/17 09:00 07/25/17 08:59 06/26/17 08:23 75 MG Carvedilol (Coreg Tab) 25 mg 1200 PO 06/25/17 12:00 06/25/17 12:01 DC 06/25/17 12:28 25 MG Furosemide (Lasix Tab) 40 mg 1200 PO 06/25/17 12:00 06/25/17 12:01 DC 06/25/17 12:28 40 MG Isosorbide Mononitrate (Imdur Ext Rel Tab) 60 mg 1200 PO 06/25/17 12:00 06/25/17 12:01 DC 06/25/17 12:28 60 MG Lab Results: Telemetry: AP-VS ECG: AP CXR: Leads in place no PTX PPM Interrogation Today: AP P waves and R wave sensing improved; threshold and impedance stable
[2017-06-26] MEDS ORDERED: OXYC-57 PO (10:32)
[2017-06-26 10:46] VITALS: BP 146/84; PULSE 60; TEMP 36.4; O2SAT 96
[2017-06-26 11:46] VITALS: BP 146/84; PULSE 60; TEMP 36.4; O2SAT 96
== END 2017-06-26 12:10 | disposition home or self-care (01) ==
LOC: C.ACU 06:13 → ENRESERV 09:23 → C.2T 10:17
PROVIDERS: ADMIT Internal Medicine; ATTEND Internal Medicine
DX: R00.1 Bradycardia, unspecified (principal); Z95.1 Presence of aortocoronary bypass graft; I25.10 Atherosclerotic heart disease of native coronary artery without angina pectoris; I12.9 Hypertensive chronic kidney disease with stage 1 through stage 4 chronic kidney disease, or unspecified chronic kidney disease; N18.3 Chronic kidney disease, stage 3 (moderate); I10 Essential (primary) hypertension; Z87.891 Personal history of nicotine dependence; Z82.49 Family history of ischemic heart disease and other diseases of the circulatory system; I25.2 Old myocardial infarction

== ENCOUNTER → 2017-07-14 | Outpatient (CLI) | payer OTHER ==
[~2017-07-14] MED LIST changes: -ASPEC81 PO; +ASPI81TA28 PO; -ATV1 PO; -CEFAZOLIN 1000MG IV PUSH 5 ML IV SCH; -CEFAZOLIN 2000MG IV PUSH 10 ML IV SCH; +CHOL2000 PO; +IMDSR30 PO; -LACTATED RINGER'S 1000ML 1,000 ML IV SCH; -LISI-725 PO; -MELO15TA10 PO; -MULT-506 PO; +OXYC-57 PO; +TRAZ50TA35 PO
--- NOTE | 2017-07-15 03:26 | PAP/PSG TECHNICIAN REPORT ---
[facility] Kitchen Help Handyman Polysomnogram Report Study name: None Report date: 07/15/2017 Study date: 07/14/2017 Referring Physician: Dr. Anderson Name: SANDEEP BUSTAMANTE Interpreting Physician: Casper Gomez M.D. Date of : 1945 Kitchen Help Handyman: Tarun Martinez RPSGT. Sex: Male Age: 72 StudyType: PSG Weight: 186 lbs 15.75 inches Height: 72 years, Height 5' 5" Neck Circum: BMI: 30.95 Medications: LASIX 20 MG, KLOR-CON 10 MEQ, DESYREL 50 MG, CORDARONE 200 MG, IMDUR 30 MG, COUMADIN 5 MG, COREG 25 MG, LEVOCETIRIZINE DIHYDROCHLORIDE 5 MG, NITROSTAT 0.4 MG, CRESTOR 20 MG Patient History PATIENT HAS HISTORY OF A-FIB, HYPERTENSION, CAD, HEART FAILURE AND MYOCARDIO INFARCTION. ALSO HAS HISTORY OF RESTLESS LEGS, SNORING AND GASPING FOR AIR. HE IS HERE TODAY FOR AN EVALUATION FOR DREA. ESS = 9 RM 5 Parameters Monitored NPSG: E1-M2, E2-M1, Fp1-M2, Fp2-M1, F3-M2, F4-M2, F4-M1, C3-M2, C4-M2, C4-M1, O1-M2, O2-M2, O2-M1, T3-M2, T4-M1, P3-M2, P4-M1, CHIN1, CHIN2, HR, EKG, Legs, PFLOW, SNOR, FLOW, CFLOW, Tidal Volume, THOR, ABDO, SpO2, PLTH, CPRESS, ETCO2 Wave, ETCO2, pH Sleep Architecture Sleep Stages Time at Lights Off 11:05:25 PM STAGES Time (min.) TST (%) Time at Lights On 1:07:55 AM Wake 106.0 -- Total Recording Time (TRT) 123.00 min. N1 10.0 61 Total Sleep Period (TSP) 68.0 min. N2 6.5 39 Total Sleep Time (TST) 16.5min. N3 0.0 0 Awake Time 106.5 min. REM 0.0 0 Wake after Sleep Onset 75.5 min. Sleep Efficiency (SE) 13 % Sleep Onset Latency (FLORES) 30.5 min. Number of Stage 1 Shifts None Awakenings 16 Stage Changes 38 Number of REM periods N/A REM 0.0 0 REM Latency NONE min. NREM 16.5 100 Body Position Analysis Supine Right Left Side Prone Vertical Total Sleep Time (min.) 99.8 5.5 0.0 5.50 0.0 0.0 Total Sleep Time (%) 67% 33% 0% 33 0% N/A% Total Sleep Time REM (min.) 0.0 0.0 0.0 None 0.0 0.0 Total Sleep Time NREM (min.) 11.0 5.5 0.0 None 0.0 0.0 Intermittent Wake (min.) 88.8 7.9 9.2 None 0.0 0.0 Total Sleep Period (%) 83% None None None None None Arousals Myoclonus (PLM) * Events Count Index Events Count Index Spontaneous 5 18 Events Awake (PLMW) 188 106.4 Respiratory 9 21.8 Events Asleep w/ Arousal (PLMA) 3 10.9 PLM 3 11 Events Asleep w/o Arousal (PLMS) 33 120.0 Snoring 0 0 Total Asleep 36 130.9 Total 17 62 Total 224 110 Respiratory Analysis * CA OA MA CH H RERA Total Count 7 0 0 0 8 0 15 Index 25.5 0.0 0.0 0 29.1 0 54.5 Mean Duration 19.8 0.0 0.0 0.00 21.2 0.0 20.6 Longest Duration 28.3 0.0 0.0 0.00 0.0 0.0 31.8 Respiratory Event Summary Total Supine ~Supine Right Left Prone REM NREM Apneas Count 7 3 4 4 N/A N/A N/A 7 Index 25.5 16 44 43.6 N/A N/A N/A 25 Hypopneas (4% Desat) Count 8 6 2 2 N/A N/A N/A 8 Index 29.1 32.7 22 21.8 N/A N/A N/A 29.1 Apneas & All Hypopneas Count 15 9 6 6 N/A N/A N/A 15 Index 54.5 49 65 65 N/A N/A N/A 54.5 Respiratory Events (Jive Developer+All Hyp+RERA) Count 15 9 6 6 N/A N/A N/A 15 Index 54.5 49 65 65.5 N/A N/A N/A 54.5 Respiratory Related Arousal Count 9 9 4 4 N/A N/A N/A 6 Index 21.8 11 44 44 N/A N/A N/A 22 Snoring Analysis Supine Right Left Prone REM NREM Total Snore duration 0.5 min Snores count 6 3 N/A N/A N/A 9 9 Snore mean duration 3.3 Sec Snores index 33 33 N/A N/A N/A 32.7 32.7 TST with snoring (%) 3.0% SpO2 Analysis Total REM NREM Awake <50% 0.0 min. 0.0 min. 0.0 min. 0.0 min. 51 - 60% 0.0 min. 0.0 min. 0.0 min. 0.0 min. 61 - 70% 0.0 min. 0.0 min. 0.0 min. 0.0 min. 71 - 80% 1.4 min. 0.0 min. 0.0 min. 1.4 min. 81 - 90% 29.9 min. 0.0 min. 6.2 min. 23.8 min. 91 - 100% 60.4 min. 0.0 min. 10.3 min. 50.1 min. Average 91 0 91 91 Minimum SpO2 73 N/A 81 73 Desaturation Event Index 15.2 0.0 58.2 9.1 # Desat. Events below 89% 27 N/A 15 12 Time(%) with Saturation below 89% 19.2 0.0 4.2 15.0 Time(min.) with Saturation below 89% 17.6 0.0 3.9 13.8 Heart Rate Analysis End Tidal CO2 Analysis Min (bpm) Max (bpm) Average (bpm) TSP (mins) % of TSP Awake 59 300 62 Above 55 mmHg 0.0 0.0 NREM 59 68 61 50-55 mmHg 0.0 0.0 REM N/A N/A N/A 45-50 mmHg 0.0 0.0 Overall 59 68 61 40-45 mmHg 0.0 0.0 35-40 mmHg 0.0 0.0 30-35 mmHg 7.8 47.5 Average ETCO2 0.0 Supplemental O2 Values Minimum O2 level: None Value Start Time End Time Kitchen Help Handyman Comments Mr. Bustamante slept in the right, left and supine positions. No cardiac arrhythmia noted. Leg movements noted. No bruxism noted. Snoring was noted and scored as a 1 on a scale of 1 through 5. (0=no snoring, 5=snoring loud enough to be heard through a closed door or down the [address] way) Mr. Bustamante awoke to use the restroom 1 time during the night. Mr. Bustamante stated I did not sleep as well as I do when I am in my own bed. The patient requested to terminate the sleep study early due to his restless legs bothering him and his inability to sleep. The final report will be interpreted and signed by a sleep physician. The completed physician report will then be placed in the patient medical record. Therapy (cm H2O) 0 TIB (min.) 122.5 TST (min.) 16.5 Sleep Onset (min.) 30.5 REM Onset From Sleep (min.) NONE Sleep Efficiency % 13 Wakefulness (%) 87 Wakefulness (min.) 106.5 NREM 1 (%) 61 NREM 1 (min.) 10.0 NREM 2 (%) 39 NREM 2 (min.) 6.5 NREM 3 (%) 0 NREM 3 (min.) 0.0 REM (%) 0 REM (min.) 0.0 # Arousals 17 Arousal Index 62 # Snore 9 Snore Index 32.7 AHI 54.5 AHI Supine 49 AHI Non-Supine 65 NREM AHI 54.5 REM AHI N/A RDI 54.5 # Obstructive Apnea 0 # Central Apnea 7 # Mixed Apnea 0 # Hypopneas 8 RERAs 0 Total Respiratory Events 22 Time Below SpO2 89% (min.) 3.9 Mean NREM SpO2 (%) 91 Mean REM SpO2 (%) N/A Mean Sleep SpO2 (%) 91 Min NREM SpO2 (%) 81 Min REM SpO2 (%) N/A Position Supine (min.) 99.8 Position Non-supine (min.) 5.5 LM Index Sleep 130.9 LM Index NREM 130.9 LM Index REM N/A Mean Heart Rate (bpm) 61 Min Heart Rate (bpm) 59
--- NOTE | 2017-07-15 14:56 | POLYSOMNOGRAPH REPORT ---
CLINICAL DATA: A 72-year-old male with BMI of [address] Elke Anderson with a history of atrial fibrillation, heart failure, myocardial infarction, restless legs, snoring, and gasping for air. SLEEP ARCHITECTURE: Total recording time was 123 minutes. Total sleep period was 68 minutes. Total sleep time was only 16.5 minutes, all non-REM sleep. Sleep onset latency was 30.5 minutes. REM was not achieved. Sleep efficiency was 13%. Wake after sleep onset was 75.5 minutes. Sleep consisted of stage N1 61% and stage N2 39%. AROUSAL DATA: Seventeen arousals were recorded for an index of 62 per hour. Nine were due to respiratory events. PERIODIC LIMB MOVEMENTS DATA: Thirty six limb movements during sleep were noted for an index of 131 per hour with arousal index of 11 per hour. RESPIRATORY DATA: Severe sleep apnea was documented. The AHI was 54.5. There were 6 central apneic episodes. The longest duration of apnea was 28.3 seconds. There were 8 hypopneic episodes with mean duration of 21.2 seconds. OXIMETRY DATA: Nocturnal hypoxemia was seen. Oxygen ping was 81%. Mean saturation was 91%. Time below 89% was 17.6 minutes. ELECTROCARDIOGRAM: Heart rates ranged from 59-68 beats per minute. No arrhythmias were noted. SAMPLE PREPARATION SUPERVISOR'S COMMENTS: The patient slept in the right, left, and supine positions. His snoring was mild, rated 1 on a scale of 1-5. The patient's legs were bothering him significantly during the night and he had frequent leg movements. He requested that the study be terminated early because of RLS and inability to sleep. IMPRESSION: Very limited polysomnogram with only 16.5 minutes of sleep. During that time, the patient did demonstrate severe sleep apnea which may be complex in nature because of the central apneic episodes seen. He had very frequent leg movements at night which disturbed his ability to sleep. RECOMMENDATIONS: The patient may benefit from a repeat sleep study with CPAP BIPAP, or adaptive servo ventilation. Treatment with either Ambien or Lunesta proir to the sleep study may be required, if necessary. Clinical correlation is needed. [facility]
== END | disposition home or self-care (01) ==
LOC: C.NEUR 21:00
PROVIDERS: ATTEND Internal Medicine
DX: G47.33 Obstructive sleep apnea (adult) (pediatric) (principal)

== ENCOUNTER 2017-07-30 11:35 | Observation (INO) | payer OTHER ==
[2017-07-25 15:47] VITALS: BMI 31.0
[~2017-07-30] VITALS: Ht 167.6 cm; Wt 88.6 kg
[2017-07-30] VITALS (8 sets, daily range): BP systolic 99–165; BP diastolic 62–105; PULSE 60–64; TEMP 36.6–36.7; O2SAT 95–98; Ht 167.6 cm; Wt 88.6 kg
[~2017-07-30 11:35] MED LIST changes: +CEFAZOLIN 2000MG IV PUSH 10 ML IV SCH; +EpHEDrine SULFATE INJ 50 MG/ML AMP ONE; +FENTANYL CITRATE INJ 50 MCG/1 ML 2 ML VIAL ONE; +FERR1TAB13 PO; +GLYCOPYRROLATE INJ 0.2 MG/ML VIAL ONE; +LACTATED RINGER'S 1000ML 1,000 ML IV SCH; +LARYING-O-JET KIT (LTA) ONE; +LIDOCAINE HCL 2% 2 ML VIAL (20MG/ML) ONE; +MIDAZOLAM HCL 1 MG/ML 2ML VIAL ONE; +NEOSTIGMINE METHYLSULFATE 5 MG/5 ML SYR ONE; +ONDANSETRON INJ 2 MG/ML 2 ML VIAL ONE; -OXYC-57 PO; -PLV75 PO; +PROPOFOL IV EMULSION 10 MG/ML 20 ML VIAL IV ONE; +ROCURONIUM BROMIDE 10 MG/ML 5 ML VIAL IV ONE; +ROPI0.25 PO
[2017-07-30] MEDS ORDERED: BUPIVACAINE 0.5 % 5 MG/1 ML MPF 30ML VIAL ONE (13:58)
[2017-07-30] MEDS ORDERED: LIDOCAINE HCL 1% 20 ML VIAL ONE (13:58)
[2017-07-30] MEDS ORDERED: BACITRACIN OINT 15 GM TUBE ONE (13:58)
--- NOTE | 2017-07-30 14:09 | Surgery Progress Note ---
Surgery Progress Note Date of Service Jul 30, 2017. Subjective pt is a 72 year old male who presents with symptomatic gallstone with chronic cholecystitis, pt has been RUQ pain with nausea for > 2 months, pt requests to do laparoscopic cholecystectomy, possible open, pt had his paving bed maker for cardiac clearance, pt was told pt has 95 % chance survive for this surgery, IMPRESSION: 1. Abnormal myocardial perfusion suggesting large LAD infarct with mild ischemia involving the anterior septum and septal angulo. 2. Severely reduced left ventricular systolic function with an ejection fraction of 27%. 3. Akinesis to dyskinesis of the mid to distal anterior wall, mid to distal anteroseptum, and apex. Otherwise, global hypokinesis. 4. No chest pain reported. Lexiscan-induced dyspnea was reported. 5. No arrhythmia. 6. Nondiagnostic Lexiscan ECG. Objective Vital Signs: Date Time Temp Pulse Resp B/P (MAP) Pulse Ox O2 Delivery O2 Flow Rate FiO2 07/30/17 12:06 36.6 62 18 165/85 (111) 95 Room Air General Appearance: WD/WN, no apparent distress Head: normocephalic Neck: supple, no JVD Respiratory/Chest: chest non-tender, lungs clear Cardiovascular: regular rate, rhythm, no edema, no gallop, no JVD Abdomen: normal bowel sounds, non tender, non distended Incision(s): clean, dry, intact Extremities: normal range of motion, non-tender, normal inspection Assessment & Plan IMP: chonic cholecystitis cholelithiasis Plan, pt will have laparoscopic cholecystectomy possible open or cholangiogram, D/W benefits, risks and alternatives of the procedure, the risks - infection, bleeding, injury CBD, bowel, may need ERCP, [place], DVT, stroke, , pt understood, he agrees with the surgery, I answered all questions,
[2017-07-30] MEDS ORDERED: EpHEDrine SULFATE INJ 50 MG/ML AMP IV PRN (14:15)
[2017-07-30] MEDS ORDERED: ONDANSETRON INJ 2 MG/ML 2 ML VIAL IV PRN ×2 (14:15→16:15)
[2017-07-30] MEDS ORDERED: ATROPINE SULFATE 0.1 MG/ML 5ML SYR IV PRN (14:15)
[2017-07-30] MEDS ORDERED: FENTANYL CITRATE INJ 50 MCG/1 ML 2 ML VIAL IV PRN (14:15)
[2017-07-30] MEDS ORDERED: PHENYLEPHRINE 100MCG/ML 5ML SYR ONE (14:42)
--- NOTE | 2017-07-30 16:10 | [facility] Post Operative Brief Note ---
Immediate Operative Summary Operative Date Jul 30, 2017. Pre-Operative Diagnosis Acute Cholecystitis/Cholelithiasis Post-Operative Diagnosis Acute Cholecystitis/Cholelithiasis Procedure(s) Performed Laparoscopic Cholecystectomy with Insertion of JAYDA drain Surgeon Jaime Ty Securities Analyst Surgeon(s) Sonja Hollins Estimated Blood Loss 20 ml Findings acute cholecystitis Specimens Permanent Specimen A. Gallbladder Drains JAYDA x1 Anesthesia general Complication(s) None Disposition Recovery Room / PACU
[2017-07-30] MEDS ORDERED: HYDROmorphone INJ 1 MG/ML SYR IV PRN (16:15)
[2017-07-30] MEDS ORDERED: ACETAMINOPHEN 325 MG TAB PO PRN (16:15)
[2017-07-30] MEDS ORDERED: IV FLUIDS COMPLETED PRN (16:30)
--- NOTE | 2017-07-30 16:49 | Anesthesiology Progress Note ---
Anesthesia Post Op Note Date & Time Jul 30, 2017 at 16:49 Vital Signs Pain Intensity: 1 Vital Signs Past 12 Hours Date Time Temp Pulse Resp B/P (MAP) Pulse Ox O2 Delivery O2 Flow Rate FiO2 07/30/17 16:41 36.2 102/78 07/30/17 16:40 59 14 98 07/30/17 16:40 59 14 07/30/17 16:36 116/77 07/30/17 16:35 60 14 98 07/30/17 16:35 60 14 07/30/17 16:31 132/80 07/30/17 16:30 60 16 98 07/30/17 16:30 60 16 07/30/17 16:26 130/84 07/30/17 16:25 60 14 07/30/17 16:25 60 14 99 07/30/17 16:21 131/82 07/30/17 16:20 60 17 07/30/17 16:20 60 17 99 07/30/17 16:16 128/77 07/30/17 16:15 60 15 97 07/30/17 16:15 56 15 07/30/17 16:11 124/80 07/30/17 16:10 60 11 07/30/17 16:10 60 11 132/77 92 07/30/17 16:05 36.2 60 14 132/77 96 Nasal Cannula 3 07/30/17 12:06 36.6 62 18 165/85 (111) 95 Room Air Notes Mental Status: alert / awake / arousable, participated in evaluation Pt Amnestic to Procedure: Yes Nausea / Vomiting: adequately controlled Pain: adequately controlled Airway Patency, RR, SpO2: stable & adequate BP & HR: stable & adequate Hydration State: stable & adequate Anesthetic Complications: no major complications apparent
[2017-07-30] MEDS: OXYCODONE/ACETAMINOPHEN 5-325 TAB PO PRN ×2 (17:36→22:30)
[2017-07-30] MEDS: D5W AND 1/2NSS + 20MEQ KCL 1,000 ML IV SCH (18:31)
--- NOTE | 2017-07-30 18:52 | OPERATIVE REPORT ---
DATE OF OPERATION: 07/30/2017 PREOPERATIVE DIAGNOSES: Chronic cholecystitis, cholelithiasis. POSTOPERATIVE DIAGNOSES: Acute cholecystitis, cholelithiasis. OPERATION: Laparoscopic cholecystectomy. SURGEON: Jaymie Ty MD FRAUD INVESTIGATOR: Sonja Pham PA-C ANESTHESIA: General. ESTIMATED BLOOD LOSS: About 20 mL. FINDINGS: Ascites inside the abdominal cavity, acute cholecystitis with gallbladder wall thickening and edema. COMPLICATIONS: None. INDICATIONS FOR THE PROCEDURE: This is a 72-year-old gentleman who presented with symptomatic cholelithiasis, right upper quadrant pain, and the patient had a significant coronary artery disease history and open heart surgery with bypass in the past. The patient has a low EF about 27%; however, patient required to do laparoscopic cholecystectomy. I did talk to patient about the benefit, risk, and alternate procedure. I indicated the risks may include but not limited such as bleeding, infection, injury to common bile duct, injury to bowel, bile leak, myocardial infarction, DVT, stroke and even . The patient understands. He signed informed consent and I answered all questions. The patient agreed to proceed with the procedure. DETAILS OF PROCEDURE: We brought patient to the OR, put patient in the supine position. The patient received SCD on bilateral legs to prevent DVT. Also, patient received 2 grams Ancef IV for prophylactic antibiotic. The patient received general anesthesia without difficulty. The abdomen was properly prepped and draped in routine sterile fashion. After a timeout, I injected local anesthesia by using 1% lidocaine mixed with 0.5% Marcaine just above the umbilical. I made a small incision just above umbilical, opened fascia and opened peritoneum under direct vision. I put a Jeanette trocar in, connected to CO2 to create pneumoperitoneum. Flow rate is 6 liter per minute. Pressure not more than 14 mmHg. Once we got a nice pneumoperitoneum, we put a camera in, looked around the abdomen showing normal findings on the stomach, small bowel, large bowel, liver; however, patient had significant acute cholecystitis. The gallbladder showing significant wall thickening and inflammation and edema, and also patient had moderate amount of ascites and yellow color. We suctioned out the ascites about 500 mL inside the abdomen and the ascites from chronic CHF. Then we put another three 5 mm trocar on the right upper quadrant. We put a grasper in to hold the base of the gallbladder, put direction to the diaphragm and then we put another grasper in to hold the pouch over the gallbladder, pull lateral to expose the triangle of Calot. The cystic duct was identified and mobilized. I put two 5 mm metal clips on the proximal cystic duct, one on the distal cystic duct, then I used scissors for transection the cystic duct. Then the cystic artery was identified and mobilized. I put two 5 mm metal clips on the proximal cystic artery, using cisor to divide cystic artery. I used scissors for transection of the cystic artery. Then I used Bovie to take down the gallbladder from liver bed and we checked no active bleeding, no bile leak. Then we removed the gallbladder through the catch bag. Then we reinserted Jeanette trocar in, connected to CO2 to create pneumoperitoneum again and then we suctioned more ascites from the abdomen; however, based on patient had significant ascites, I decided to put 7 mm JAYDA drainage in and left patient stay in the hospital overnight, and at this moment we removed all trocars under direct vision. No active bleeding from trocar site and the pneumoperitoneum was released. Then I closed the umbilical incision fascial layer [id number] x2 by using #1 Vicryl, subcutaneous layer by using 2-0 Vicryl, and skin by using 4-0 Vicryl, and we closed another three 5 mm trocar site skin only by using 4-0 Vicryl. Then we put a dressing on. The patient tolerated the procedure well and also we fixed the JAYDA drainage, I used 3-0 nylon to fix JAYDA drainage on the skin, and then we put dressing on. The patient tolerated the procedure well. All the instrument, needle and sponge counts correct x2 at the end of the case. The patient was transferred to recovery room in stable condition. After the procedure, I did talk to patient and patient's family member about the OR finding and procedure we did, and they understand. I attest to the content of the Intraoperative Record and any orders documented therein. Any exceptions are noted below. [place]
[2017-07-30] MEDS ORDERED: CHOL20009 PO (19:22)
[2017-07-30] MEDS ORDERED: FRRS300 PO (19:22)
[2017-07-30] MEDS ORDERED: NITROGLYCERIN 0.4 MG SL PER TAB CHARGE SL PRN (19:30)
[2017-07-30] MEDS ORDERED: POLYETHYLENE (MIRALAX) 17 GM PACK PO PRN (19:30)
--- NOTE | 2017-07-30 19:56 | Medical Consult ---
Consultation Date of Consultation: Jul 30, 2017. Attending Physician: Jaymie Ty MD Reason for Consultation: Medical management History of Present Illness Pt is 72 y/o M with PMH chronic systolic CHF, CAD with PCI LAD in 2015 & CABG x 4 in 02/2017, hx post-op afib resolved, ischemic cardiomyopathy, EF: 23%, chronic fascicular block, dual chamber ICD placed 06/2017, HTN, RLS, insomnia, hyperlipidemia is seen for medical management consult after laparoscopic cholecystectomy by Dr Ty today. Pt states was having some abdominal pain, however had a Percocet with moderate relief of pain. Denies nausea or vomiting. States had BM this am. Is eating dinner without difficulty or nausea. Hx LE edema, pt states it is decreased from couple of weeks ago. Denies fever/chills, diaphoresis, [place], dizziness, vision changes, neck pain, CP, SOB, orthopnea, palpitations, cough, choking, weakness, extremity weakness, rashes, urinary symptoms. Past Medical/Surgical History Medical Problems: (1) Atrial fibrillation Permanent Comment: 02/2017 after surgery, resolved Status: Resolved (2) BPH (benign prostatic hyperplasia) Status: Chronic (3) Coronary artery disease Permanent Comment: 2015 - PCI LAD 02/2017- CABG x 4 Status: Chronic (4) Glaucoma Status: Chronic (5) Hyperlipidemia Status: Chronic (6) Hypertension Status: Chronic (7) Insomnia Status: Chronic (8) Ischemic cardiomyopathy Status: Chronic (9) RLS (restless legs syndrome) Status: Chronic (10) Seasonal allergies Status: Chronic (11) Systolic CHF, chronic Status: Chronic Surgical Problems: (1) Dual ICD (implantable cardioverter-defibrillator) in place Permanent Comment: 06/2017 Status: Resolved (2) History of cardiac cath Permanent Comment: 2015 - LAD Status: Resolved (3) Hx of arthroscopy of left knee Permanent Comment: L meniscus tear and repair - 2004 Status: Resolved (4) Hx of CABG Permanent Comment: 02/2017 - CABG x 4 Status: Resolved (5) Hx of transurethral resection of prostate Permanent Comment: 2004 Status: Resolved Family History FH: CHF (congestive heart failure) FH: cancer Hypertension Social History Smoking Status: Former Smoker Smokeless Tobacco Use: No Alcohol Use: 1 glass of wine daily Drug Use: none Marital Status: Housing Status: lives with family Occupation Status: retired Allergies Coded Allergies: [place] (Verified Allergy, Unknown, Unknown, 06/25/17) Sulfa Antibiotics (Verified Adverse Reaction, Intermediate, HALLUCINATE, 07/26/17) Cat Dander (Verified Adverse Reaction, Mild, "eyes water", 07/26/17) Grass (Verified Adverse Reaction, Mild, "sneezing", 07/26/17) Uncoded Allergies: DUST MITES (Allergy, Mild, sneeze, 07/30/17) Current Inpatient Medications Current Inpatient Medications Medications (Trade) Dose Ordered Sig/May Route Start Time Stop Time Status Last Admin Dose Admin Lactated Ringer's 1,000 ml @ 15 mls/hr Q24H IV 07/30/17 06:00 07/31/17 05:59 07/30/17 06:00 15 MLS/HR Fentanyl Citrate (Fentanyl Inj) 50 mcg Q5M PRN IV 07/30/17 14:15 07/30/17 19:15 Ondansetron HCl (Zofran Inj) 4 mg ONE PRN IV 07/30/17 14:15 07/30/17 19:15 Ephedrine Sulfate (EpHEDrine SULFATE INJ) 5 mg Q5M PRN IV 07/30/17 14:15 07/30/17 19:15 Atropine Sulfate (Atropine Sulfate 0.1MG/Ml Inj) 0.5 mg Q1M PRN IV 07/30/17 14:15 07/30/17 19:15 Potassium Chloride/Dextrose/ Sod Cl 1,000 ml @ 50 mls/hr Q20H IV 07/30/17 17:30 08/29/17 17:29 07/30/17 18:31 50 MLS/HR Ondansetron HCl (Zofran Inj) 4 mg Q4H PRN IV 07/30/17 16:15 08/29/17 16:14 Acetaminophen (Tylenol Tab) 650 mg Q6H PRN PO 07/30/17 16:15 08/29/17 16:14 Oxycodone/ Acetaminophen (Percocet 5-325mg Tab) 1 tab Q4H PRN PO 07/30/17 16:15 08/13/17 16:14 07/30/17 17:36 1 TAB Hydromorphone HCl (Dilaudid Inj) 0.6 mg Q3H PRN IV 07/30/17 16:15 08/13/17 16:14 Miscellaneous (Iv Fluids Completed) 1 ea PRN PRN N/A 07/30/17 16:30 07/30/18 16:29 Cefazolin Sodium 1000 mg/Syringe 5 ml @ 1.667 mls/ min Q8H IV 07/30/17 22:00 07/31/17 21:59 Review of Systems Constitutional: No fever, No chills, No sweats Eyes: No eye pain, No redness, No discharge ENT: + tinnitus, No unusual epistaxis, No nasal symptoms, No sore throat, No trouble swallowing Respiratory: No cough, No sputum, No wheezing, No shortness of breath Cardiovascular: No chest pain, No PND Abdomen: + problem reported (see HPI) Musculoskeletal: No calf pain Genitourinary - Male: No hematuria, No dysuria, No urinary frequency, No urinary urgency Neurologic: No paralysis, No numbness/tingling, No vertigo Psychiatric: + insomnia, No depression symptoms, No anxiety Hematologic / Lymphatic: No abnormal bleeding/bruising Integumentary: No rash, No itch Allergic / Immunologic: + seasonal allergies (hx spring, summer, fall) Physical Exam Date Time Temp Pulse Resp B/P (MAP) Pulse Ox O2 Delivery O2 Flow Rate FiO2 07/30/17 17:54 63 16 124/84 (97) 07/30/17 17:30 63 16 127/79 (95) 98 Nasal Cannula 3.0 07/30/17 17:15 138/88 (105) 07/30/17 17:00 36.6 64 16 144/105 (118) 95 Nasal Cannula 3.0 07/30/17 17:00 95 Nasal Cannula 3.0 07/30/17 17:00 Nasal Cannula 3.0 07/30/17 16:41 36.2 102/78 07/30/17 16:40 59 14 98 07/30/17 16:40 59 14 07/30/17 16:36 116/77 07/30/17 16:35 60 14 98 07/30/17 16:35 60 14 07/30/17 16:31 132/80 07/30/17 16:30 60 16 98 07/30/17 16:30 60 16 07/30/17 16:26 130/84 12/19/17 16:25 60 14 07/30/17 16:25 60 14 99 07/30/17 16:21 131/82 07/30/17 16:20 60 17 07/30/17 16:20 60 17 99 07/30/17 16:16 128/77 07/30/17 16:15 60 15 97 07/30/17 16:15 56 15 07/30/17 16:11 124/80 07/30/17 16:10 60 11 07/30/17 16:10 60 11 132/77 92 07/30/17 16:05 36.2 60 14 132/77 96 Nasal Cannula 3 07/30/17 12:06 36.6 62 18 165/85 (111) 95 Room Air General Appearance: WD/WN, no apparent distress (sitting up in bed eating his dinner ) Head: normocephalic, atraumatic Eyes: normal inspection, EOMI, sclerae normal ENT: hearing grossly normal, pharynx normal, + pertinent finding (mucous membranes moist) Neck: supple, no JVD, trachea midline Respiratory/Chest: chest non-tender, lungs clear, normal breath sounds, no respiratory distress, no accessory muscle use Cardiovascular: regular rate, rhythm, no murmur, normal peripheral pulses Abdomen/GI: normal bowel sounds, soft, + pertinent finding (+ecchymosis abdomen noted. surgical dressings in place, mild tenderness to light palpation mid and right side abdomen) Back: no CVA tenderness Extremities/Musculoskelatal: no calf tenderness, normal range of motion, non- tender, + pedal edema (2+bilaterally ) Neurologic/Psych: alert, normal mood/affect, oriented x 3 Skin: normal color, warm/dry Assessment & Plan Pt S/P LAPAROSCOPIC CHOLECYSTECTOMY by Dr Ty -pain management per surgery -wound management per surgery -DVT prophylaxis per surgery -incentive spirometry -monitor H&H for acute blood loss anemia, CBC in am CAD & ISCHEMIC CARDIOMYOPATHY & CHRONIC SYSTOLIC CHF Hx CAD with CABG x 4. EF: 23%. vitals stable currently. lungs clear to auscultation. LE 2+edema bilaterally (pt reports this is improved from previous) -continue ASA -continue carvedilol -continue lasix and potassium -continue imdur -nitro prn CP and alert Dr -continue crestor -cbc, prp in am -EKG in am or prn CP -continue to monitor RLS & INSOMNIA -continue trazodone HS -continue requip HS DVT PROPHYLAXIS -per surgery DISPOSITION -Full Code as per discussion with pt -Follows with Dr Galvan for routine care Pt was seen with Dr Youngblood. See addendum Dr. Youngblood Attending Physician Addendum I have seen and examined the patient with ELSI Aj and agree with the assessment and plan as above. This is a patient with CHF history s/p cholecystectomy. Patient is doing well. On exam he is breathing on nasal cannula. His lung exam of good air entry without crackles or wheezing. Patients lower extremity without edema. He has dressing over right abdomen from the surgical site. Patient receiving pain medications and is not in acute pain. Medicine consult will continue to follow the patient
--- NOTE | 2017-07-30 20:00 | NUR ---
OBS: Pt is alert and oriented x4. Lungs clear on 2L NC. Tolerating a clear liquid diet. Pt has not voided post op. IV fluids infusing as per order. Pain controlled with PO pain medication. Plan for discharge is uncertain at this time.
[2017-07-30] MEDS: ISOSORBIDE MONONITRATE 60 MG TABCR PO SCH (21:00)
[2017-07-30] MEDS: ROPINIROLE HCL 0.25 MG TAB PO SCH (21:30)
[2017-07-30] MEDS: TRAVOPROST Z 0.004% OPH SOLN 2.5 ML BTL OPB SCH (21:30)
[2017-07-30] MEDS: TRAZODONE HCL 50 MG TAB PO SCH (21:30)
[2017-07-30] MEDS: CARVEDILOL 25 MG TAB PO SCH (21:31)
[2017-07-30] MEDS ORDERED: CEFAZOLIN IV 1,000 MG in DEXTROSE 5% 50ML 50 ML IV SCH (22:00)
[2017-07-30] MEDS: CEFAZOLIN IV 1,000 MG in SYRINGE 0 ML IV SCH (22:30)
[2017-07-30] MEDS: ASPIRIN 81 MG ECTAB PO SCH (23:18)
--- NOTE | 2017-07-31 | NUR ---
OBS: Pt is alert and oriented x4. Lungs clear on 2L NC. Tolerating a clear liquid diet. Pt has not voided post op. IV fluids infusing as per order. Pain controlled with PO pain medication. Pt is one assist OOB. Plan for discharge is uncertain at this time.
[2017-07-31] MEDS: OXYCODONE/ACETAMINOPHEN 5-325 TAB PO PRN ×5 (03:55→21:57)
[2017-07-31 04:00] VITALS: BP 123/81; PULSE 57; TEMP 36.8; O2SAT 96
--- NOTE | 2017-07-31 04:41 | NUR ---
OBS: Pt is alert and oriented x4. Lungs clear on 2L NC. Tolerating a clear liquid diet. Pt has only voided 40mL Doctor aware. IV fluids infusing as per order. Pain controlled with PO pain medication. Pt is one assist OOB. Plan for discharge is uncertain at this time.
[2017-07-31] MEDS: CEFAZOLIN IV 1,000 MG in SYRINGE 0 ML IV SCH ×2 (05:31→13:38)
[2017-07-31 05:38] LABS: BASO % 0.3 %; BASO ABS # 0.02 K/uL (0-0.2); EOS % 1.9 %; EOS ABS # 0.12 K/uL (0-0.5); HEMATOCRIT 42.7 % (42-52); HEMOGLOBIN 13.8 g/dL (14.0-18.0); IG# 0.01 K/uL (0.00-0.02); LYMPH ABS # 0.64 K/uL (1.2-3.4); MEAN CELL VOLUME 90.7 fL (80-100); MEAN CORPUSCULAR HEMOGLOBIN 29.3 pg (25-34); MEAN CORPUSCULAR HGB CONC 32.3 g/dl (32-36); MEAN PLATELET VOLUME 10.8 fL (7.4-10.4); MONO % 10.9 %; NEUT % 76.7 %; NEUT ABS # 4.92 K/uL (1.4-6.5); PLATELET COUNT 107 K/uL (130-400); RED CELL DISTRIBUTION WIDTH CV 17.3 % (11.5-14.5); RED CELL DISTRIBUTION WIDTH SD 56.9 fL (36.4-46.3); WHITE BLOOD COUNT 6.41 K/uL (4.8-10.8)
[2017-07-31] MEDS ORDERED: CEFAZOLIN SOD 2000MG/15 ML IV PUSH IV ONE (06:00)
--- NOTE | 2017-07-31 06:10 | NUR ---
A: pt's bladder scan was greater than 200. Pt refused a straight cath at this time. Explained risks. Pt displays understanding.
[2017-07-31 06:16] LABS: ALBUMIN 2.7 gm/dl (3.4-5.0); CALCIUM 8.2 mg/dl (8.5-10.1); CREATININE 2.06 mg/dl (0.60-1.40); POTASSIUM 3.4 mmol/L (3.5-5.1)
[2017-07-31] MEDS: ASPIRIN 81 MG ECTAB PO SCH ×2 (07:47→21:15)
[2017-07-31] MEDS: ISOSORBIDE MONONITRATE 60 MG TABCR PO SCH ×2 (07:48→21:15)
[2017-07-31] MEDS: FUROSEMIDE 20 MG TAB PO SCH (07:48)
[2017-07-31] MEDS: POTASSIUM CHLORIDE 10 MEQ TABCR PO SCH (07:48)
[2017-07-31] MEDS: CARVEDILOL 25 MG TAB PO SCH ×2 (07:48→21:16)
[2017-07-31] MEDS: FERROUS SULFATE 325 MG TAB PO SCH (07:49)
[2017-07-31] MEDS: ROSUVASTATIN CALCIUM 20 MG TAB PO SCH (07:49)
[2017-07-31] MEDS: CHOLECALCIFEROL 1000 INTER.UNIT TAB PO SCH (07:49)
[2017-07-31 07:51] VITALS: BP 135/88; PULSE 63; TEMP 37.2; O2SAT 91
--- NOTE | 2017-07-31 08:00 | NUR ---
Obs: a/o x4. vss. pain managed with po percocet. tolerating liqiods at this time. requested to be advanced to a regular tray for breakfast. refused to be straight cath'd over night. states he has prostate issues at baseline. ivf infusing as ordered. oob one assist. 2x2/opsite dressing to abdomen intact. JAYDA with serosanguineous fluid. d/c plan home, date uncertain
[2017-07-31] MEDS ORDERED: POTASSIUM CHLORIDE 10 MEQ TABCR PO STA (10:55)
[2017-07-31] MEDS: D5W AND 1/2NSS + 20MEQ KCL 1,000 ML IV SCH ×2 (11:52→23:41)
--- NOTE | 2017-07-31 12:00 | NUR ---
obs: a/o x4. vss. no changes in assessment. abdominal dressings intact. JAYDA intact. oob one assist. ivf infusing as ordered. d/c plan home tomorrow
--- NOTE | 2017-07-31 13:00 | Anesthesiology Progress Note ---
Anesthesia Post Op Note Date & Time Jul 31, 2017 at 13:00 Vital Signs Pain Intensity: 3.0 Vital Signs Past 12 Hours Date Time Temp Pulse Resp B/P (MAP) Pulse Ox O2 Delivery O2 Flow Rate FiO2 07/31/17 07:51 37.2 63 16 135/88 (104) 91 Room Air 07/31/17 07:45 Room Air 07/31/17 04:00 36.8 57 16 123/81 (95) 96 Room Air Notes Mental Status: alert / awake / arousable, participated in evaluation Pt Amnestic to Procedure: Yes Nausea / Vomiting: adequately controlled Pain: adequately controlled Airway Patency, RR, SpO2: stable & adequate BP & HR: stable & adequate Hydration State: stable & adequate Anesthetic Complications: no major complications apparent
--- NOTE | 2017-07-31 13:04 | Surgery Progress Note ---
Surgery Progress Note Date of Service Jul 31, 2017. Subjective Post OP Day: 1 (POD # 1 s/p laparoscopic cholecystectomy) moderate abdominal pain, 4-5/10, controlled with PO Percocet tolerated regular diet for breakfast No chest pain or shortness of breath Has not ambulated or been out of bed No much urination since surgery Objective Vital Signs: Date Time Temp Pulse Resp B/P (MAP) Pulse Ox O2 Delivery O2 Flow Rate FiO2 07/31/17 07:51 37.2 63 16 135/88 (104) 91 Room Air 07/31/17 07:45 Room Air 07/31/17 04:00 36.8 57 16 123/81 (95) 96 Room Air 07/30/17 22:55 36.7 61 16 136/73 (94) 96 Room Air 07/30/17 21:30 64 125/73 (90) 07/30/17 20:10 36.6 60 16 99/62 (74) 97 Nasal Cannula 2.0 07/30/17 19:10 Nasal Cannula 2.0 07/30/17 17:54 63 16 124/84 (97) 07/30/17 17:30 63 16 127/79 (95) 98 Nasal Cannula 3.0 07/30/17 17:15 138/88 (105) 07/30/17 17:00 36.6 64 16 144/105 (118) 95 Nasal Cannula 3.0 07/30/17 17:00 95 Nasal Cannula 3.0 07/30/17 17:00 Nasal Cannula 3.0 07/30/17 16:41 36.2 102/78 07/30/17 16:40 59 14 98 07/30/17 16:40 59 14 07/30/17 16:36 116/77 07/30/17 16:35 60 14 98 07/30/17 16:35 60 14 07/30/17 16:31 132/80 07/30/17 16:30 60 16 98 07/30/17 16:30 60 16 07/30/17 16:26 130/84 07/30/17 16:25 60 14 07/30/17 16:25 60 14 99 07/30/17 16:21 131/82 07/30/17 16:20 60 17 07/30/17 16:20 60 17 99 07/30/17 16:16 128/77 07/30/17 16:15 60 15 97 07/30/17 16:15 56 15 07/30/17 16:11 124/80 07/30/17 16:10 60 11 07/30/17 16:10 60 11 132/77 92 07/30/17 16:05 36.2 60 14 132/77 96 Nasal Cannula 3 Physical Exam: CHRISTOPH drainage (serosagnuineous) General Appearance: WD/WN, no apparent distress Head: normocephalic, atraumatic Neck: trachea midline Respiratory/Chest: no respiratory distress, no accessory muscle use Abdomen: non distended, soft, no organomegaly, no pulsatile mass, + tenderness (RUQ and at incision sites, appropriate post op), + pertinent finding (CHRISTOPH drain right abdomen with multiple 4 x4 and abds soaked with serous drainage) Incision(s): clean, dry (dressings clean and dry, incisions not inspected) Laboratory Results: Results Past 24 Hours Test 07/31/17 05:24 Range/Units White Blood Count 6.41 4.8-10.8 K/uL Red Blood Count 4.71 4.7-6.1 M/uL Hemoglobin 13.8 14.0-18.0 g/dL Hematocrit 42.7 42-52 % Mean Corpuscular Volume 90.7 80-100 fL Mean Corpuscular Hemoglobin 29.3 25-34 pg Mean Corpuscular Hemoglobin Concent 32.3 32-36 g/dl Platelet Count 107 130-400 K/uL Mean Platelet Volume 10.8 7.4-10.4 fL Neutrophils (%) (Auto) 76.7 % Lymphocytes (%) (Auto) 10.0 % Monocytes (%) (Auto) 10.9 % Eosinophils (%) (Auto) 1.9 % Basophils (%) (Auto) 0.3 % Neutrophils # (Auto) 4.92 1.4-6.5 K/uL Lymphocytes # (Auto) 0.64 1.2-3.4 K/uL Monocytes # (Auto) 0.70 0.11-0.59 K/uL Eosinophils # (Auto) 0.12 0-0.5 K/uL Basophils # (Auto) 0.02 0-0.2 K/uL RDW Standard Deviation 56.9 36.4-46.3 fL RDW Coefficient of Variation 17.3 11.5-14.5 % Immature Granulocyte % (Auto) 0.2 % Immature Granulocyte # (Auto) 0.01 0.00-0.02 K/uL Sodium Level 135 136-145 mmol/L Potassium Level 3.4 3.5-5.1 mmol/L Chloride Level 95 98-107 mmol/L Carbon Dioxide Level 32 21-32 mmol/L Anion Gap 8.0 3-11 mmol/L Blood Urea Nitrogen 22 7-18 mg/dl Creatinine 2.06 0.60-1.40 mg/dl Est Creatinine Clear Calc Drug Dose 33.8 ml/min Estimated GFR () 36.2 Estimated GFR (Non- 31.2 BUN/Creatinine Ratio 10.9 10-20 Random Glucose 117 70-99 mg/dl Calcium Level 8.2 8.5-10.1 mg/dl Total Bilirubin 1.5 0.2-1 mg/dl Aspartate Amino Transf (AST/SGOT) 34 15-37 U/L Alanine Aminotransferase (ALT/SGPT) 26 12-78 U/L Alkaline Phosphatase 192 45-117 U/L Total Protein 6.0 6.4-8.2 gm/dl Albumin 2.7 3.4-5.0 gm/dl Globulin 3.3 2.5-4.0 gm/dl Albumin/Globulin Ratio 0.8 0.9-2 Assessment & Plan POD # 1 s/p laparoscopic cholecystectomy with placement of CHRISTOPH drain -vitals stable - no leukocytosis - afebrile - elevated BUN/Creatinine without minimal urine output 2.2/2.06 respectively -moderate abdominal pain Plan: Continue current pain management with PO Percocet and breakthrough Dilaudid as needed Continue IV fluids, increase to 80 mls/hr given decreased urine output and elevated BUN/Creatinine Complete post op antibiotics continue christoph drain to bulb suction Continue IV Zofran as needed Continue regular diet OOB to chair and ambulation Encourage incentive spirometry Continue SCDs Repeat am labs Dr. Ty has seen and examined patient, agrees with above.
--- NOTE | 2017-07-31 13:50 | NUR ---
A: patient only voided 50 ml for shift. bladder scanned patient for 329 ml. informed patient that per order, he is to be straight cath'd for this result. patient adamantly refusing to be straight cath'd. patient states he does not feel like he has to void, nor is he experiencing pressure/discomfort in the bladder. Patient states he has prostate issues at baseline
[2017-07-31 15:28] VITALS: BP 130/82; PULSE 61; TEMP 37.2; O2SAT 94
--- NOTE | 2017-07-31 16:02 | NUR ---
OBS: Pt. is A&Ox4, clear on room air, pain managed with prn medications. IV fluids infusing per order. Pulses palpable, no edema observed. BSx4 quadrants, denies gas, tolerating a regular diet. Voiding in the urinal. OOB x1 assist. Dressing to abdomen c/d/i. Drainage around JAYDA site, dressing changed. JAYDA draining serosanguineous. Rings for assistance, call xavier within reach. Hourly rounding maintained.
--- NOTE | 2017-07-31 17:46 | Progress Note ---
Subjective Date of Service: Jul 31, 2017. Subjective Pt evaluation today including: conversation w/ patient, physical exam, lab review, review of studies Saw/examined the patient in room 378 He's doing well, abdominal pain is present, but improved with medications drain in place draining serosanguineous fluid decreased urination as per patient, he is drinking more water today; good PO intake, no nausea/vomiting/diarrhea Problem List Medical Problems: (1) CHF (congestive heart failure) Status: Acute (2) Elevated troponin Status: Acute (3) Multifocal PVCs Status: Acute (4) Near syncope Status: Acute (5) Non-ST elevation (NSTEMI) myocardial infarction Status: Acute Review of Systems Constitutional: No fever, No chills, No weakness Respiratory: No cough, No sputum, No shortness of breath Cardiac: No chest pain Abdomen: + pain, No nausea, No vomiting, No diarrhea, No constipation, No GI bleeding Male : + problem reported (decreased urination) Heme: No abnormal bleeding/bruising Medications Current Inpatient Medications Medications (Trade) Dose Ordered Sig/May Route Start Time Stop Time Status Last Admin Dose Admin Potassium Chloride/Dextrose/ Sod Cl 1,000 ml @ 80 mls/hr [id number] IV 07/30/17 17:30 08/29/17 17:29 07/31/17 11:52 80 MLS/HR Ondansetron HCl (Zofran Inj) 4 mg Q4H PRN IV 07/30/17 16:15 08/29/17 16:14 Acetaminophen (Tylenol Tab) 650 mg Q6H PRN PO 07/30/17 16:15 08/29/17 16:14 Oxycodone/ Acetaminophen (Percocet 5-325mg Tab) 1 tab Q4H PRN PO 07/30/17 16:15 08/13/17 16:14 07/31/17 13:38 1 TAB Hydromorphone HCl (Dilaudid Inj) 0.6 mg Q3H PRN IV 07/30/17 16:15 08/13/17 16:14 Miscellaneous (Iv Fluids Completed) 1 ea PRN PRN N/A 07/30/17 16:30 07/30/18 16:29 Cefazolin Sodium 1000 mg/Syringe 5 ml @ 1.667 mls/ min Q8H IV 07/30/17 22:00 07/31/17 21:59 07/31/17 13:38 1.667 MLS/MIN Nitroglycerin (Nitrostat Tab) 0.4 mg UD PRN SL 07/30/17 19:30 08/29/17 19:29 Polyethylene (Miralax Powder Packet) 17 gm DAILY PRN PO 07/30/17 19:30 08/29/17 19:29 Aspirin (Ecotrin Tab) 81 mg BID PO 07/30/17 21:00 08/29/17 20:59 07/31/17 07:47 81 MG Carvedilol (Coreg Tab) 25 mg BID PO 07/30/17 21:00 08/29/17 20:59 07/31/17 07:48 25 MG Ferrous Sulfate (Feosol Tab) 325 mg DAILY PO 07/31/17 09:00 08/30/17 08:59 07/31/17 07:49 325 MG Furosemide (Lasix Tab) 40 mg QAM PO 07/31/17 09:00 08/30/17 08:59 07/31/17 07:48 40 MG Isosorbide Mononitrate (Imdur Ext Rel Tab) 60 mg BID PO 07/30/17 21:00 08/29/17 20:59 07/31/17 07:48 60 MG Ropinirole HCl (Requip Tab) 0.25 mg HS PO 07/30/17 21:00 08/29/17 20:59 07/30/17 21:30 0.25 MG Rosuvastatin Calcium (Crestor Tab) 20 mg QAM PO 07/31/17 09:00 08/30/17 08:59 07/31/17 07:49 20 MG Travoprost (Travatan Z) 1 drops HS OPB 07/30/17 21:00 08/29/17 20:59 07/30/17 21:30 1 DROPS Trazodone HCl (Desyrel Tab) 50 mg HS PO 07/30/17 21:00 08/29/17 20:59 07/30/17 21:30 50 MG Miscellaneous Information (Order Awaiting Action) 1 ea QS N/A 07/31/17 00:00 08/30/17 00:00 Cholecalciferol (Vitamin D Tab) 2,000 inter.unit DAILY PO 07/31/17 09:00 08/30/17 08:59 07/31/17 07:49 2,000 INTER.UNIT Potassium Chloride (Klor-Con M10) 10 meq QAM PO 07/31/17 09:00 08/30/17 08:59 07/31/17 07:48 10 MEQ Objective Vital Signs Date Time Temp Pulse Resp B/P (MAP) Pulse Ox O2 Delivery O2 Flow Rate FiO2 07/31/17 15:28 37.2 61 16 130/82 (98) 94 Nasal Cannula 1.5 07/31/17 15:05 Nasal Cannula 2.0 07/31/17 07:51 37.2 63 16 135/88 (104) 91 Room Air 07/31/17 07:45 Room Air 07/31/17 04:00 36.8 57 16 123/81 (95) 96 Room Air 07/30/17 22:55 36.7 61 16 136/73 (94) 96 Room Air 07/30/17 21:30 64 125/73 (90) 07/30/17 20:10 36.6 60 16 99/62 (74) 97 Nasal Cannula 2.0 07/30/17 19:10 Nasal Cannula 2.0 07/30/17 17:54 63 16 124/84 (97) Physical Exam General Appearance: no apparent distress Respiratory/Chest: chest non-tender, lungs clear, normal breath sounds, no respiratory distress, no accessory muscle use Cardiovascular: regular rate, rhythm, no edema, no murmur Abdomen: normal bowel sounds, non tender, soft, + pertinent finding (+drain in place) Extremities: normal inspection, no pedal edema Laboratory Results Last 24 Hours Test 07/31/17 05:24 White Blood Count 6.41 K/uL Red Blood Count 4.71 M/uL Hemoglobin 13.8 g/dL Hematocrit 42.7 % Mean Corpuscular Volume 90.7 fL Mean Corpuscular Hemoglobin 29.3 pg Mean Corpuscular Hemoglobin Concent 32.3 g/dl Platelet Count 107 K/uL Mean Platelet Volume 10.8 fL Neutrophils (%) (Auto) 76.7 % Lymphocytes (%) (Auto) 10.0 % Monocytes (%) (Auto) 10.9 % Eosinophils (%) (Auto) 1.9 % Basophils (%) (Auto) 0.3 % Neutrophils # (Auto) 4.92 K/uL Lymphocytes # (Auto) 0.64 K/uL Monocytes # (Auto) 0.70 K/uL Eosinophils # (Auto) 0.12 K/uL Basophils # (Auto) 0.02 K/uL RDW Standard Deviation 56.9 fL RDW Coefficient of Variation 17.3 % Immature Granulocyte % (Auto) 0.2 % Immature Granulocyte # (Auto) 0.01 K/uL Sodium Level 135 mmol/L Potassium Level 3.4 mmol/L Chloride Level 95 mmol/L Carbon Dioxide Level 32 mmol/L Anion Gap 8.0 mmol/L Blood Urea Nitrogen 22 mg/dl Creatinine 2.06 mg/dl Est Creatinine Clear Calc Drug Dose 33.8 ml/min Estimated GFR () 36.2 Estimated GFR (Non- 31.2 BUN/Creatinine Ratio 10.9 Random Glucose 117 mg/dl Calcium Level 8.2 mg/dl Total Bilirubin 1.5 mg/dl Aspartate Amino Transf (AST/SGOT) 34 U/L Alanine Aminotransferase (ALT/SGPT) 26 U/L Alkaline Phosphatase 192 U/L Total Protein 6.0 gm/dl Albumin 2.7 gm/dl Globulin 3.3 gm/dl Albumin/Globulin Ratio 0.8 Assessment and Plan Pt S/P LAPAROSCOPIC CHOLECYSTECTOMY by Dr Ty 07/31 patient is doing well pain control as per general surgery monitor H/H continue IVFs -pain management per surgery -wound management per surgery -DVT prophylaxis per surgery -incentive spirometry -monitor H&H for acute blood loss anemia, CBC in am CAD & ISCHEMIC CARDIOMYOPATHY & CHRONIC SYSTOLIC CHF 07/31 continue aspirin, b-veronica, statin, Imdur patient is now getting IVFs monitor for fluid overload good PO intake, so can likely stop IVFs and restart diuretics soon; monitor urine 07/30 Hx CAD with CABG x 4. EF: 23%. vitals stable currently. lungs clear to auscultation. LE 2+edema bilaterally (pt reports this is improved from previous) -continue ASA -continue carvedilol -continue lasix and potassium -continue imdur -nitro prn CP and alert Dr -continue crestor -cbc, prp in am -EKG in am or prn CP -continue to monitor Decreased Urination hx. of TURP no problems with urination since then likely due to dehydration give IVFs, improved diet, monitor H/H - refusing catheter RLS & INSOMNIA -continue trazodone HS -continue requip HS DVT PROPHYLAXIS -per surgery DISPOSITION -Full Code as per discussion with pt -Follows with Dr Galvan for routine care
--- NOTE | 2017-07-31 20:02 | NUR ---
OBS: Pt. is A&Ox4, clear on room air, pain managed with prn medications. IV fluids infusing per order. Pulses palpable, no edema observed. BSx4 quadrants, denies gas, tolerating a regular diet. Voiding in the urinal. OOB x1 assist. Dressing to abdomen c/d/i. JAYDA draining serosanguineous. Rings for assistance, call xavier within reach. Hourly rounding maintained.
[2017-07-31] MEDS: TRAZODONE HCL 50 MG TAB PO SCH (21:14)
[2017-07-31] MEDS: ROPINIROLE HCL 0.25 MG TAB PO SCH (21:15)
[2017-07-31] MEDS: TRAVOPROST Z 0.004% OPH SOLN 2.5 ML BTL OPB SCH (21:16)
[2017-07-31 22:50] VITALS: BP 134/82; PULSE 59; TEMP 37.6; O2SAT 90
[2017-07-31 22:52] VITALS: TEMP 37.3
--- NOTE | 2017-08-01 | NUR ---
OBS Note: A/Ox4. Pain controlled with medication. IVF running per MD order. OOB with one assist. Pt currently resting in bed. Call xavier within reach.
[2017-08-01] MEDS: OXYCODONE/ACETAMINOPHEN 5-325 TAB PO PRN ×3 (01:54→13:40)
[2017-08-01] MEDS ORDERED: ROPINIROLE HCL 0.25 MG TAB PO ONE (02:50)
--- NOTE | 2017-08-01 04:00 | NUR ---
OBS note: No change in assessment. IVF running per MD order. Pt resting in bed. Call xavier within reach.
[2017-08-01 07:15] VITALS: BP 133/86; PULSE 67; TEMP 37; O2SAT 94
--- NOTE | 2017-08-01 08:00 | NUR ---
OBS NOTE: pt resting in bed at this time with call xavier in reach. IV Fluids infusing as ordered. denies pain. dressing intact to abdomen. JAYDA draining serosanguineous.
[2017-08-01] MEDS: POTASSIUM CHLORIDE 10 MEQ TABCR PO SCH (08:32)
[2017-08-01] MEDS: ISOSORBIDE MONONITRATE 60 MG TABCR PO SCH (08:32)
[2017-08-01] MEDS: FERROUS SULFATE 325 MG TAB PO SCH (08:32)
[2017-08-01] MEDS: CARVEDILOL 25 MG TAB PO SCH (08:32)
[2017-08-01] MEDS: FUROSEMIDE 20 MG TAB PO SCH (08:33)
[2017-08-01] MEDS: ROSUVASTATIN CALCIUM 20 MG TAB PO SCH (08:33)
[2017-08-01] MEDS: ASPIRIN 81 MG ECTAB PO SCH (08:33)
[2017-08-01] MEDS: CHOLECALCIFEROL 1000 INTER.UNIT TAB PO SCH (08:33)
[2017-08-01 08:41] VITALS: BP 140/80; PULSE 63; O2SAT 93
[2017-08-01 09:12] LABS: HEMOGLOBIN 14.3 g/dL (14.0-18.0); MEAN CELL VOLUME 90.2 fL (80-100); MEAN CORPUSCULAR HEMOGLOBIN 29.3 pg (25-34); MEAN CORPUSCULAR HGB CONC 32.5 g/dl (32-36); MEAN PLATELET VOLUME 10.8 fL (7.4-10.4); PLATELET COUNT 120 K/uL (130-400); RED CELL DISTRIBUTION WIDTH CV 17.1 % (11.5-14.5); RED CELL DISTRIBUTION WIDTH SD 56.1 fL (36.4-46.3); WHITE BLOOD COUNT 7.18 K/uL (4.8-10.8)
[2017-08-01 09:49] LABS: CALCIUM 8.2 mg/dl (8.5-10.1); CREATININE 2.09 mg/dl (0.60-1.40); POTASSIUM 3.3 mmol/L (3.5-5.1)
[2017-08-01] MEDS: D5W AND 1/2NSS + 20MEQ KCL 1,000 ML IV SCH (11:58)
--- NOTE | 2017-08-01 12:00 | NUR ---
OBS NOTE: pt is alert and oriented x4. clear lungs sounds on room air. sitting up in the chair. dressings intact. ambulates independently. po pain meds controlling pain.
[2017-08-01 13:02] VITALS: BP 140/80; PULSE 63; TEMP 37; O2SAT 93
[2017-08-01] MEDS ORDERED: OXYC-57 PO (13:08)
--- NOTE | 2017-08-01 13:14 | Discharge Instructions ---
Discharge Instructions Date of Service Aug 01, 2017. Admission Reason for Admission: Symptomatic Cholelithiaisis Discharge Discharge Diagnosis / Problem: same, chronic cholecystitis Discharge Goals Goal(s): Decrease discomfort, Improve function Activity Recommendations Activity Limitations: as noted below No heavy lifting over 20 pounds for 2 weeks No strenuous activity until cleared by surgeon No submerging incisions underwater for 2 weeks (no bathing, swimming, or hot tubs) No driving while taking narcotic pain medication or until you are pain free . Instructions / Follow-Up Instructions / Follow-Up You may shower in 2 days and then remove outer dressings. Wash hair and sponge bath in meantime Replace dressings daily Leave steri strips on incisions for 7 days and then remove, they may fall off on their own that is okay Walking and light activity is encouraged to prevent blood clots from forming Drink plenty of fluids and stay hydrated You should call your primary care physician to have a follow-up in regards to your kidney functions as they were elevated during your hospital stay. If your urine output is low please call surgical office or primary care office for further evaluation. Follow-up in surgical office in 1-2 weeks as already scheduled, please call office at [phone] if you do not already have an appointment made Current Hospital Diet Patient's current hospital diet: Regular Diet Discharge Diet Recommended Diet: Regular Diet Procedures Procedures Performed: Laparoscopic Cholecystectomy with Insertion of JAYDA drain Pending Studies Studies pending at discharge: yes List of pending studies: gallbladder pathology will be reviewed at follow up visit Medical Emergencies . Who to Call and When: Medical Emergencies: If at any time you feel your situation is an emergency, please call 911 immediately. . Non-Emergent Contact Non-Emergency issues call your: Primary Care Provider, Surgeon Call Non-Emergent contact if: you have a fever, temperature is above 101, your pain is not controlled, your pain is worsening, your pain is unusual for you, wound has increased drainage, wound has increased redness, wound has increased pain . "Provider Documentation" section prepared by Sonja Pham. . VTE Core Measure Inpt VTE Proph given/why not?: SCD's [place] Drug Monitoring Program Search Results: patient reviewed within database, no issues identified
--- NOTE | 2017-08-01 16:43 | Surgery Progress Note ---
Surgery Progress Note Date of Service Aug 01, 2017. Subjective Post OP Day: 2 (s/p laparoscopic cholecystectomy) + feeling well, + flatus, + pain controlled, + diet (regular diet), No complaints, No chest pain, No SOB, No nausea, No vomiting urinating on his own Objective Vital Signs: Date Time Temp Pulse Resp B/P (MAP) Pulse Ox O2 Delivery O2 Flow Rate FiO2 08/01/17 13:02 37.0 63 16 93 Room Air 08/01/17 08:41 63 16 140/80 (100) 93 Room Air 08/01/17 07:50 Nasal Cannula 2.0 08/01/17 07:15 37.0 67 18 133/86 (102) 94 Nasal Cannula 2.0 07/31/17 23:45 Nasal Cannula 2.0 07/31/17 22:52 37.3 07/31/17 22:50 37.6 59 16 134/82 (99) 90 Nasal Cannula 2.0 Physical Exam: JAYDA drainage (serous), urine output (dark piotr color) General Appearance: WD/WN, no apparent distress Head: normocephalic, atraumatic Neck: trachea midline Respiratory/Chest: no respiratory distress, no accessory muscle use Abdomen: non distended, soft, + tenderness (appropriate post op at incision sites) Incision(s): clean, dry (dressings clean and dry, incisions not inspected) Laboratory Results: Results Past 24 Hours Test 08/01/17 08:45 Range/Units White Blood Count 7.18 4.8-10.8 K/uL Red Blood Count 4.88 4.7-6.1 M/uL Hemoglobin 14.3 14.0-18.0 g/dL Hematocrit 44.0 42-52 % Mean Corpuscular Volume 90.2 80-100 fL Mean Corpuscular Hemoglobin 29.3 25-34 pg Mean Corpuscular Hemoglobin Concent 32.5 32-36 g/dl RDW Standard Deviation 56.1 36.4-46.3 fL RDW Coefficient of Variation 17.1 11.5-14.5 % Platelet Count 120 130-400 K/uL Mean Platelet Volume 10.8 7.4-10.4 fL Sodium Level 132 136-145 mmol/L Potassium Level 3.3 3.5-5.1 mmol/L Chloride Level 95 98-107 mmol/L Carbon Dioxide Level 29 21-32 mmol/L Anion Gap 8.0 3-11 mmol/L Blood Urea Nitrogen 23 7-18 mg/dl Creatinine 2.09 0.60-1.40 mg/dl Est Creatinine Clear Calc Drug Dose 33.3 ml/min Estimated GFR () 35.6 Estimated GFR (Non- 30.7 BUN/Creatinine Ratio 10.9 10-20 Random Glucose 110 70-99 mg/dl Calcium Level 8.2 8.5-10.1 mg/dl Assessment & Plan POD # 2 s/p laparoscopic cholecystectomy with placement of JAYDA drain - vitals stable - no leukocytosis - afebrile - elevated BUN/Creatinine at 2.3/2.09 respectively, able to urinate on his own - abdominal pain, controlled Plan: Discharge home today Discharge instructions reviewed Rx for Percocet as needed for pain follow-up pcp in regards to kidney function, if difficulty urinating advised to call office or report to emergency room stay hydrated with plenty of fluids Follow-up surgical office 2 weeks Discontinue JAYDA drain prior to discharge Dr. Ty has seen and examined patient, agrees with above.
--- NOTE | 2017-08-07 14:12 | Discharge Summary ---
Discharge Summary Dates Admission Date / Time: Jul 30, 2017 at 16:18 Discharge Date: Aug 01, 2017 Dispostion / Condition Discharge Disposition: Home Condition at Discharge: Good Principal Diagnosis (1) Chronic cholecystitis Problem List (1) Hypertension (2) Glaucoma (3) Seasonal allergies (4) Atrial fibrillation (5) Non-STEMI (non-ST elevated myocardial infarction) (6) BPH (benign prostatic hyperplasia) (7) Coronary artery disease (8) RLS (restless legs syndrome) (9) Systolic CHF, chronic (10) Hyperlipidemia (11) Insomnia (12) Ischemic cardiomyopathy Consultations / Procedures Consultations: Hospitalist Procedures: Laparoscopic cholecystectomy with placement of surgical drain Pending Studies / Follow-Up gallbladder pathology-to be reviewed at follow up visit Medication Reconciliation New Medications: Oxycodone/Acetaminophen 5MG/325MG (Percocet 5MG/325MG) Tab 1 TABLET PO Q4H PRN for Pain, #18 TAB Continued Medications: Aspirin (Aspirin Ec) 81 Mg Tab 81 MG PO BID PT REPORTS DR GONZALES'S OFFICE INSTRUCTED OKAY TO TAKE THIS UD PRIOR TO SURGERY Brimonidine Tartrate-Timolol M (Combigan) 1 Janey Janey 1 DROP OPB BID, #15 Carvedilol (Coreg) 25 Mg Tab 25 MG PO BID, TAB Cholecalciferol (Vitamin D) 2,000 Unit Tab 1 TAB PO DAILY Ferrous Sulfate (Ferrous Sulfate) 325 Mg Tab 1 TAB PO DAILY Furosemide (Lasix) 20 Mg Tab 40 MG PO QAM, TAB Isosorbide Mononitrate (Isosorbide Mononitrate ER) 30 Mg Tabcr 60 MG PO BID Levocetirizine Dihydrochloride (Levocetirizine Dihydrochl) 5 Mg Tab 5 MG PO UD PRN for ALLERGIES Nitroglycerin (Nitrostat) 0.4 Mg Tab 1 TAB SL UD PRN for CHEST PAIN, #100 TAB 3 Refills SPRAY FOR UNDER TONGUE UD Potassium Chloride (Potassium Chloride Er) 10 Meq Cap 1 TAB PO QAM, #30 Ropinirole (Requip) 0.25 Mg Tab 0.25 MG PO HS, TAB Rosuvastatin Calcium (Crestor) 20 Mg Tab 1 TAB PO QAM for 30 Days, #30 TAB 5 Refills Travoprost (Travatan Z) 0.004 % Mohit 1 DROPS OPB HS, ML Trazodone Hcl (Trazodone) 50 Mg Tab 50 MG PO HS, TAB Admission HPI Per the Admitting provider: David is a 72 year-old male who presented to [facility] for elective cholecystectomy given chronicity of RUQ abdominal pain. He was scheduled for laparoscopic cholecystectomy on 07/30/2017. Patient was found to have moderate amount of fluid in the abdomen secondary to his CHF as well as chronic inflammation/edema of the gallbladder which required placement of JAYDA drain. He was therefore kept in the hospital for observation overnight. Hospital Course (1) Chronic cholecystitis Patient underwent laparoscopic cholecystectomy by DR. Gonzales. Unfortunately his gallbladder was chronically inflammed and edematous which prolonged the procedure and required a surgical drain. Patient tolerated procedure well without any complications. Was transferred to recovery room in stable condition and then to medical/surgical floor for an evening of observation. The medical hospitalist was consulted given history of CAD and CHF. On POD # 1 patient's pain was moderate, slightly controlled with only Percocet. His BUN/ Creatinine were elevated at 22/2.06 respectively and patient did not have much urine output therefore IV fluids were increased to 80 mls/hr. Diet was advanced to clear liquids post op, IV Zofran as needed for nausea, incentive spirometry, and SCDS. Activity as tolerated. Patient did not get out of bed yet on POD # 1. Patient was kept overnight given decreased urine output and moderate pain. Labs were repeated in the morning of POD # 2 which showed increased BUN/ Creatinine to 23/2.09 respectively however patient urinating on his own. Refused Miramontes Catheter. Pain was much improved and controlled. Tolerated regular diet. Patient was no longer requiring oxygen via nasal canula and was ready for home. He was discharged home and advised to follow up with PCP in regards to low urinary output. Discharge Instructions as given to patient Copies To Primary Care Provider: Moise Galvan MD.
== END 2017-08-01 14:24 | disposition home or self-care (01) ==
LOC: C.ACU 11:35 → C.MSN 16:18 → ENRESERV 16:38
PROVIDERS: ADMIT Surgery; ATTEND Surgery
DX: K80.10 Calculus of gallbladder with chronic cholecystitis without obstruction (principal); G47.33 Obstructive sleep apnea (adult) (pediatric); N18.3 Chronic kidney disease, stage 3 (moderate); I12.9 Hypertensive chronic kidney disease with stage 1 through stage 4 chronic kidney disease, or unspecified chronic kidney disease; I25.2 Old myocardial infarction; I25.10 Atherosclerotic heart disease of native coronary artery without angina pectoris; E78.5 Hyperlipidemia, unspecified; I48.91 Unspecified atrial fibrillation; Z88.2 Allergy status to sulfonamides; Z95.1 Presence of aortocoronary bypass graft; Z79.82 Long term (current) use of aspirin; Z79.899 Other long term (current) drug therapy; Z98.890 Other specified postprocedural states

== ENCOUNTER → 2017-08-19 | Outpatient (CLI) | payer OTHER ==
[~2017-08-19] MED LIST changes: -CEFAZOLIN 2000MG IV PUSH 10 ML IV SCH; -CHOL2000 PO; +CHOL20009 PO; -EpHEDrine SULFATE INJ 50 MG/ML AMP ONE; -FENTANYL CITRATE INJ 50 MCG/1 ML 2 ML VIAL ONE; -FERR1TAB13 PO; +FRRS300 PO; -GLYCOPYRROLATE INJ 0.2 MG/ML VIAL ONE; -LACTATED RINGER'S 1000ML 1,000 ML IV SCH; -LARYING-O-JET KIT (LTA) ONE; -LIDOCAINE HCL 2% 2 ML VIAL (20MG/ML) ONE; -MIDAZOLAM HCL 1 MG/ML 2ML VIAL ONE; -NEOSTIGMINE METHYLSULFATE 5 MG/5 ML SYR ONE; -ONDANSETRON INJ 2 MG/ML 2 ML VIAL ONE; +OXYC-57 PO; -PROPOFOL IV EMULSION 10 MG/ML 20 ML VIAL IV ONE; -ROCURONIUM BROMIDE 10 MG/ML 5 ML VIAL IV ONE
[2017-08-19 11:02] LABS: BASO % 1.3 %; BASO ABS # 0.08 K/uL (0-0.2); EOS ABS # 0.42 K/uL (0-0.5); HEMATOCRIT 43.8 % (42-52); HEMOGLOBIN 14.2 g/dL (14.0-18.0); IG# 0.01 K/uL (0.00-0.02); LYMPH % 12.3 %; LYMPH ABS # 0.74 K/uL (1.2-3.4); MEAN CELL VOLUME 90.3 fL (80-100); MEAN CORPUSCULAR HEMOGLOBIN 29.3 pg (25-34); MEAN CORPUSCULAR HGB CONC 32.4 g/dl (32-36); MEAN PLATELET VOLUME 11.9 fL (7.4-10.4); MONO ABS # 0.72 K/uL (0.11-0.59); NEUT % 67.2 %; NEUT ABS # 4.04 K/uL (1.4-6.5); PLATELET COUNT 125 K/uL (130-400); RED CELL DISTRIBUTION WIDTH CV 17.9 % (11.5-14.5); RED CELL DISTRIBUTION WIDTH SD 58.7 fL (36.4-46.3); WHITE BLOOD COUNT 6.01 K/uL (4.8-10.8)
[2017-08-19 11:35] LABS: BLOOD UREA NITROGEN 24 mg/dl (7-18); CARBON DIOXIDE 28 mmol/L (21-32); CREATININE 1.65 mg/dl (0.60-1.40); GLUCOSE 98 mg/dl (70-99); POTASSIUM 3.4 mmol/L (3.5-5.1); SODIUM 136 mmol/L (136-145)
[2017-08-19 11:40] LABS: PHOSPHORUS 3.7 mg/dl (2.5-4.9)
== END | disposition home or self-care (01) ==
LOC: C.LABBC 08:27
PROVIDERS: ATTEND Urology
DX: Z12.5 Encounter for screening for malignant neoplasm of prostate (principal); N18.3 Chronic kidney disease, stage 3 (moderate)

== ENCOUNTER → 2017-08-21 | Outpatient (CLI) | payer OTHER ==
--- NOTE | 2017-08-22 06:50 | SPLIT NIGHT TECHNICIAN REPORT ---
[facility] Split Night Polysomnogram - Pulmonary Function Technician Report Study date: 08/21/2017 Referring Physician: Dr. Anderson Name: SANDEEP BUSTAMANTE Pulmonary Function Technician: JELANI Quiñonez. Date of : 1945 Height: 72 years, Height 5' 5" Sex: Male Weight: 186 lbs Age: 72 Neck Circum: 15.75 inches BMI: Medications: 30.95 KLOR-CON 10 MEQ, ASPIRIN 81 MG, CORDARONE 200 MG, IMDUR 30 MG, COUMADIN 5 MG, COREG 25 MG, NITROSTAT 0.4 MG, CRESTOR 20 MG Patient History PATIENT HAS HISTORY OF A-FIB, HYPERTENSION, CAD AND CKD. ALSO HAS HISTORY OF SNORING, GASPING FOR AIR, ANXIETY AND INSOMNIA. HE HAD A SLEEP STUDY DONE IN JULY OF 2017 WHICH HE ONLY SLEPT OF AROUND 16 MINUTES. HE SHOWED SEVERE APNEA IN THAT SHORT AMOUNT OF TIME. HE IS HERE TODAY FOR SPLIT-STUDY. ESS = 9 RM 8 Parameters Monitored NPSG: E1-M2, E2-M1, Fp1-M2, Fp2-M1, F3-M2, F4-M2, F4-M1, C3-M2, C4-M2, C4-M1, O1-M2, O2-M2, O2-M1, T3-M2, T4-M1, P3-M2, P4-M1, CHIN1, CHIN2, HR, EKG, Legs, PFLOW, SNOR, FLOW, CFLOW, Tidal Volume, THOR, ABDO, SpO2, PLTH, CPRESS, ETCO2 Wave, ETCO2, pH SLEEP SUMMARY DATA DIAGNOSTIC TREATMENT Lights Out: 11:00:40 PM 2:48:10 AM Lights On: 2:32:40 AM 5:51:10 AM Total Recording Time (TRT): 212.5 min. 183.5 min. Total Sleep Time (TST): 130.5 min. 72.0 min. NREM Time: 106.0 min. 72.0 min. REM Time: 24.5 min. 0.0 min. Sleep Period Time (SPT): 141.0 min. 153.5 min. Sleep Efficiency (SE): 62 % 39 % Sleep Latency: 71.0 min. 21.0 min. Arousal Index: 11.0 55.0 PAP Treatment Levels: 4, 5, 6, 8/4, 9/5, 10/6 * Optimal Pressure(s) SLEEP STAGING DATA DIAGNOSTIC TREATMENT Duration (min) TST % Duration (min) TST % Stage Wake: 81.5 min. -- 111.5 min. -- WASO: 10.5 min. -- 81.5 min. -- NREM: 106.0 min. 81 % 72.0 min. 100 % Stage N1: 10.0 min. 8 % 32.5 min. 45 % Stage N2: 96.0 min. 74 % 39.5 min. 55 % Stage N3: 0.0 min. 0 % 0.0 min. 0 % REM: 24.5 min. 19 % 0.0 min. 0 % POSITIONAL DATA Event Count Index Event Count Index Supine: 36 16 53 44.2 Supine NREM: 27 14.2 53 44.2 Supine REM: 9 22 N/A N/A Non-Supine: N/A N/A N/A N/A Non-Supine NREM: N/A N/A N/A N/A Non-Supine REM: N/A N/A N/A N/A AROUSAL SUMMARY DATA: Event Count Index Event Count Index Apnea Arousals: 1 2.8 14 26.7 Hypopnea Arousals: 4 1.8 7 5.8 Snore Arousals: 0 0.0 0 0.0 PLM Arousals: 0 0.0 0 0.0 Non-Specific Arousals: 16 7.4 49 40.8 Total Arousals: 24 11.0 66 55.0 MYOCLONUS (PLM) Event Count Index Event Count Index PLM: 81 37.2 0 0.0 PLM AROUSAL: 0 0.0 0 0.0 PLM W/O AROUSAL 81 37.2 0 0.0 PLM W/RESP EVENT 0 0.0 0 0.0 MYOCLONUS (PLM) Event Count Index Event Count Index LM: 1 8.7 5 4.2 LM AROUSAL: 1 0.5 1 0.8 LM W/O AROUSAL LM W/RESP EVENT LM NON SPECIFIC 97 44.6 3 2.5 HEART RATE DATA DIAGNOSTIC TREATMENT Sleep (bpm): 60 60 REM (bpm): 91 N/A NREM (bpm): 90 92 Tachycardia Count: 0 0 Tachycardia Duration: 0.00 0 Bradycardia Count: 0 0 Bradycardia Duration: 0.00 0 DIAGNOSTIC PORTION TREATMENT PORTION RESPIRATORY DATA Event Count Index Event Count Index AHI: -- 15.6 -- 44.2 RDI: -- 16.6 -- 44 Obstructive Apnea: 1 0.5 1 0.8 Central Apnea: 5 2.3 31 25.8 Mixed Apnea: 0 0.0 0 0.0 Hypopnea: 28 12.9 21 17.5 RERA: 2 0.9 0 0.0 Total Apneas: 6 2.8 32 26.7 RESPIRATORY DATA REM NREM SLEEP REM NREM SLEEP Supine Position: Obstructive Apneas: 0 1 1 N/A 1 1 Central Apneas: 0 5 5 N/A 31 31 Mixed Apneas: 0 0 0 N/A 0 0 Hypopneas: 9 19 28 N/A 21 21 RERA 0 2 2 N/A 0 0 Total Supine Events: 9 27 36 N/A 53 53 Supine AHI: 22 14.2 16 N/A 44.2 44.2 Supine RDI: 22.0 15.3 16.6 N/A 44.2 44.2 REM NREM SLEEP REM NREM SLEEP Non-Supine Position: Obstructive Apneas: N/A N/A N/A N/A N/A N/A Central Apneas: N/A N/A N/A N/A N/A N/A Mixed Apneas: N/A N/A N/A N/A N/A N/A Hypopneas: N/A N/A N/A N/A N/A N/A RERA N/A N/A N/A N/A N/A N/A Total Supine Events: N/A N/A N/A N/A N/A N/A Supine AHI: N/A N/A N/A N/A N/A N/A Supine RDI: N/A N/A N/A N/A N/A N/A OXYGEN DESTAURATION DATA: Event Count Index Event Count Index REM Desaturations: 9 22.0 N/A N/A NREM Desaturations: 24 13.6 37 30.8 SNORE DATA DIAGNOSTIC TREATMENT Snore Time: 0.6 3:09:10 AM Snore TST%: 2 7 Snore Arousal Count: 0 0 Snore Arousal Index: 0.0 0.0 Desaturation Event Summary: Minimum %SpO2 Event Count Mean/Min/Max Duration(sec.) Desaturation Index % Time In Bed > 90 82 37.2 / 9.5 / 71.7 18.3 68.9 86 - 90 12 34.9 / 19.8 / 60.0 6.2 29.9 81 - 85 0 N/A 0.0 1.3 76 - 80 0 N/A 0.0 0.0 71 - 75 0 N/A 0.0 0.0 66 - 70 0 N/A 0.0 0.0 61 - 65 0 N/A 0.0 0.0 56 - 60 0 N/A 0.0 0.0 51 - 55 0 N/A 0.0 0.0 < 50 0 N/A 0.0 0.0 OXYGEN SATURATION DATA DIAGNOSTIC TREATMENT SpO2 Mean Sleep: 90 % 92 % SpO2 Mean REM: 91 % N/A % SpO2 Mean NREM: 90 % 92 % SpO2 Minimum Sleep: 82 % 85 % SpO2 Minimum REM: 83 % N/A % SpO2 Minimum NREM: 82 % 85 % Time Below 90% (TST): 50.2 5.9 Time Below 88% (TST): 10.4 1.9 Total REM NREM Awake <50% 0.0 min. 0.0 min. 0.0 min. 0.0 min. 51 - 60% 0.0 min. 0.0 min. 0.0 min. 0.0 min. 61 - 70% 0.0 min. 0.0 min. 0.0 min. 0.0 min. 71 - 80% 0.0 min. 0.0 min. 0.0 min. 0.0 min. 81 - 90% 121.9 min. 7.4 min. 82.9 min. 31.6 min. 91 - 100% 269.6 min. 17.1 min. 95.1 min. 157.4 min. Average 92 91 91 93 Minimum SpO2 82 83 82 84 Desaturation Event Index 12.9 22.0 20.6 5.6 # Desat. Events below 89% 59 7 38 14 Time(%) with Saturation below 89% 9.6 0.7 5.8 3.1 Time(min.) with Saturation below 89% 37.8 2.8 22.8 12.1 Recording Pulmonary Function Technician Comments: Mr. Bustamante slept in the supine positions. PAC's noted. Leg movements noted. No bruxism noted. Snoring was noted and scored as a 1 on a scale of 1 through 5. (0=no snoring, 5=snoring loud enough to be heard through a closed door or down the [address] way) At 2:32 AM Mr. Bustamante has met specific Split-Night criteria during the diagnostic portion of this study. CPAP was initiated at +4 CMH2O and up-titrated to an level of +6 CMH2O. At this time, I switched to BIPAP due to continued central apneas. I started at 8/4 and increased up to 10/6. A Resmed Morocho fx nasal pillow size medium mask was used during titration Mr. Bustamante awoke to use the restroom 1 time during the night. Mr. Bustamante stated I did not sleep as well as I do when I am in my own bed. The final report will be interpreted and signed by a sleep physician. The completed physician report will then be placed in the patient medical record. Therapy Event: Therapy (cm H20) 0 4 5 6 8/4 95 6 Total Time at Pressure (min.) 212.0 35.7 25.1 33.0 11.0 39.5 38.7 TST at Pressure (min.) 130.5 7.2 14.6 15.5 9.0 10.5 15.2 # Periods 1 1 1 1 1 1 1 Sleep Onset (min.) 71.0 21.0 0.0 0.0 0.0 0.0 0.0 REM Onset (min.) 171.0 N/A N/A N/A N/A N/A N/A Sleep Efficiency % 61 20 58 47 81 26 39 Wakefulness (%) 38.4 79.8 41.8 53.0 18.2 73.4 60.8 Wakefulness (min.) 81.5 28.5 10.5 17.5 2.0 29.0 23.5 NREM 1 (%) 4.7 9.8 17.1 23.3 27.3 17.7 18.1 NREM 1 (min.) 10.0 3.5 4.3 7.7 3.0 7.0 7.0 NREM 2 (%) 45.3 10.4 41.0 23.7 54.5 8.9 21.2 NREM 2 (min.) 96.0 3.7 10.3 7.8 6.0 3.5 8.2 NREM 3 (%) 0.0 0.0 0.0 0.0 0.0 0.0 0.0 NREM 3 (min.) 0.0 0.0 0.0 0.0 0.0 0.0 0.0 REM (%) 11.6 0.0 0.0 0.0 0.0 0.0 0.0 REM (min.) 24.5 0.0 0.0 0.0 0.0 0.0 0.0 # Arousals 24 7 12 17 7 10 13 Arousal Index 11.0 58.3 49.3 65.7 46.7 57.2 51.4 # Snore 13 0 0 2 9 5 6 Snore Index 6.0 0.0 0.0 7.7 60.0 28.6 23.7 AHI 15.6 33.3 49.3 38.7 53.3 51.4 39.5 AHI Supine 15.6 33.3 49.3 38.7 53.3 51.4 39.5 AHI Non-Supine N/A N/A N/A N/A N/A N/A N/A NREM AHI 14.2 33.3 49.3 38.7 53.3 51.4 39.5 REM AHI 22.0 N/A N/A N/A N/A N/A N/A RDI 16.6 33.3 49.3 38.7 53.3 51.4 39.5 # Obstructive 1 0 0 0 0 1 0 # Central Ap 5 3 11 8 2 4 3 # Mixed 0 0 0 0 0 0 0 # Hypopneas 28 1 1 2 6 4 7 RERAS 2 0 0 0 0 0 0 Total Respiratory Events 36 4 12 10 8 9 10 Time Below SpO2 89.00% (min.) 22.5 0.0 0.1 0.4 1.4 0.3 1.1 Mean NREM SpO2 (%) 90 93 93 92 92 93 92 Mean REM SpO2 (%) 91 N/A N/A N/A N/A N/A N/A Mean Sleep SpO2 (%) 90 93 93 92 92 93 92 Min NREM SpO2 (%) 82 89 86 85 85 88 85 Min REM SpO2 (%) 83 N/A N/A N/A N/A N/A N/A Position Supine (min.) 130.5 7.2 14.6 15.5 9.0 10.5 15.2 Position Non-supine (min.) 0.0 0.0 0.0 0.0 0.0 0.0 0.0 LM Index Sleep 46.0 0.0 4.1 3.9 6.7 11.4 0.0 LM Index NREM 56.0 0.0 4.1 3.9 6.7 11.4 0.0 LM Index REM 2.4 N/A N/A N/A N/A N/A N/A Mean Heart Rate (bpm) 60 60 60 60 60 60 60 Min Heart Rate (bpm) 54 59 54 57 58 57 57
--- NOTE | 2017-08-23 14:31 | POLYSOMNOGRAPH REPORT ---
CLINICAL DATA: A 72-year-old male with BMI of [address] Anderson with a history of atrial fibrillation, snoring, gasping for air at night, sleep apnea, and insomnia. He had a sleep study done in July 2017, but only slept for 16 minutes. During that time he showed severe sleep apnea. This was a split night study. SLEEP ARCHITECTURE: For the diagnostic portion of the study, sleep period was 141 minutes. Total sleep time was 130.5 minutes divided between 106 minutes of non-REM sleep and 24.5 minutes of REM sleep. Sleep latency was 71 minutes which is significantly delayed. Sleep efficiency was 62%. Arousal index was 11. Sleep consisted of stage N1 8%, stage N2 74%, and REM 19%. For the treatment portion of the study, sleep period was 153.5 minutes. Total sleep time was 72 minutes all non-REM sleep. Sleep latency was 21 minutes. Sleep efficiency was 39%. Arousal index was 55. Sleep consisted of stage N1 45% and stage N2 55%. AROUSAL DATA: Prior to treatment, 24 arousals recorded for an index of 11 per hour. With treatment, 66 arousals were recorded for an index of 55 per hour. PLM DATA: Prior to treatment, 97 limb movements during sleep were noted for an index of 44.6 per hour. With treatment, 3 limb movements were noted for an index of 2.5 per hour. EKG: Heart rates ranged from 60-92 beats per minute. PACs were noted. RESPIRATORY DATA: Moderate sleep apnea was documented prior to treatment. The AHI was 15.6. The RDI was 16.6. There was 1 obstructive and 5 central apneic episodes. There were 28 hypopneic episodes. There were 2 RERAs. With treatment, the average AHI was 44.2. There was 1 obstructive and 31 central apneic episodes and 21 hypopneic episodes. OXIMETRY DATA: Nocturnal hypoxemia was seen. Oxygen ping was 82% prior to treatment. Mean saturation for the treatment was 92%. LOCKSTITCH COLLAR SETTER'S COMMENTS AND TREATMENT SUMMARY: The patient slept supine. Snoring was mild, rated 1 on a scale of 1-5. At 2:32 a.m., the patient met split night criteria. He was started on CPAP using Mroocho FX nasal pillow size medium from [employer]. He was started at 4 cm of water pressure and was titrated up to 6 cm of water pressure. However, he developed treatment onset central apneic episodes which required a change to BiPAP. The patient was then started on BiPAP 8/4 and titrated up to 10/6. At his final pressure setting, he slept for 15 minutes with an AHI of 39.5. IMPRESSION: Moderate obstructive sleep apnea/hypopnea with nocturnal hypoxemia with an incomplete CPAP/BiPAP titration study. The patient did develop treatment onset central apneic episodes. RECOMMENDATIONS: The patient may benefit from use of auto CPAP with download of compliance and effectiveness data. The other option would be a titration study with ASV. Clinical correlation is needed. [id number]
== END | disposition home or self-care (01) ==
LOC: C.NEUR 21:00
PROVIDERS: ATTEND Internal Medicine
DX: G47.33 Obstructive sleep apnea (adult) (pediatric) (principal); G47.36 Sleep related hypoventilation in conditions classified elsewhere; G25.81 Restless legs syndrome

== ENCOUNTER → 2017-09-10 | Outpatient (CLI) | payer OTHER ==
[2017-09-10 13:26] LABS: BASO % 1.1 %; BASO ABS # 0.08 K/uL (0-0.2); EOS % 3.3 %; EOS ABS # 0.24 K/uL (0-0.5); HEMATOCRIT 45.5 % (42-52); HEMOGLOBIN 15.2 g/dL (14.0-18.0); IG# 0.02 K/uL (0.00-0.02); LYMPH % 12.6 %; LYMPH ABS # 0.91 K/uL (1.2-3.4); MEAN CELL VOLUME 92.1 fL (80-100); MEAN CORPUSCULAR HEMOGLOBIN 30.8 pg (25-34); MEAN CORPUSCULAR HGB CONC 33.4 g/dl (32-36); MEAN PLATELET VOLUME 11.2 fL (7.4-10.4); MONO % 11.9 %; MONO ABS # 0.86 K/uL (0.11-0.59); NEUT % 70.8 %; NEUT ABS # 5.11 K/uL (1.4-6.5); PLATELET COUNT 115 K/uL (130-400); RED CELL DISTRIBUTION WIDTH CV 18.5 % (11.5-14.5); RED CELL DISTRIBUTION WIDTH SD 61.6 fL (36.4-46.3); WHITE BLOOD COUNT 7.22 K/uL (4.8-10.8)
[2017-09-10 14:00] LABS: ALBUMIN 3.3 gm/dl (3.4-5.0); BLOOD UREA NITROGEN 25 mg/dl (7-18); CALCIUM 8.7 mg/dl (8.5-10.1); CARBON DIOXIDE 31 mmol/L (21-32); CREATININE 1.66 mg/dl (0.60-1.40); GLUCOSE 96 mg/dl (70-99); POTASSIUM 3.4 mmol/L (3.5-5.1); SODIUM 131 mmol/L (136-145)
== END | disposition home or self-care (01) ==
LOC: C.LABBC 12:09
PROVIDERS: ATTEND Internal Medicine Nephrology
DX: N18.3 Chronic kidney disease, stage 3 (moderate) (principal)

== ENCOUNTER → 2017-10-06 | Outpatient (CLI) | payer OTHER ==
--- NOTE | 2017-10-07 06:09 | PAP/PSG TECHNICIAN REPORT ---
[facility] Vp Genetic Polysomnogram Report Study name: None Report date: 10/07/2017 Study date: 10/06/2017 Referring Physician: Casper Gomez M.D. Name: SANDEEP BUSTAMANTE Interpreting Physician: Casper Gomez M.D. Date of : 1945 Vp Genetic: Ynes Hernández RPS. Sex: Male Age: 72 StudyType: PSG PAP Weight: 183 lbs Height: 72 years, Height 5' 5.5" Neck Circum:15.75inches BMI: 29.99 Medications: Aspirin 81mg, Carvedilol 25mg, Combigan 0.2-0.5% Ophthalmic Soln, Furosemide 20mg, Isosorbide Mononitrate ER 30mg, Levocetirizine Dihydrochloride 5mg, Nitrostat 0.4mg, Oxycodone -Acetaminophen 5-325mg, Rosuvastatin Calcium 20mg, Travatan Z 0.004% Ophthalmalic Soln, Trazodone HCL 50mg, Vit D3 2000unit Oral Cap, Lunesta 2mg Patient History Study started on room air with ASV settings:EPAP MIN+4CMH2O, EPEP MAX +[id number], PS MIN +4CMH2O, PS MAX +20 CMH2O, MAX PRESSURE +[id number], RATE=AUTO, In room #6. 72 yr old male here tonight for a titration study with ASV. During a split study on 08/21/17 he developed treatment onset central apneic episodes and did not have a successful titration study with cpap or Bipap. His ESS=9/24. Neck circ=15.75inches. He took his Requip at 10pm and a Lunesta at 10:30pm. Parameters Monitored NPSG: E1-M2, E2-M1, Fp1-M2, Fp2-M1, F3-M2, F4-M2, F4-M1, C3-M2, C4-M2, C4-M1, O1-M2, O2-M2, O2-M1, T3-M2, T4-M1, P3-M2, P4-M1, CHIN1, CHIN2, HR, EKG, Legs, PFLOW, SNOR, FLOW, CFLOW, Tidal Volume, THOR, ABDO, SpO2, PLTH, CPRESS, ETCO2 Wave, ETCO2, pH Sleep Architecture Sleep Stages Time at Lights Off 10:48:25 PM STAGES Time (min.) TST (%) Time at Lights On 5:27:25 AM Wake 205.0 -- Total Recording Time (TRT) 399.00 min. N1 18.0 9 Total Sleep Period (TSP) 364.0 min. N2 141.0 73 Total Sleep Time (TST) 194.0min. N3 8.0 4 Awake Time 205.0 min. REM 27.0 14 Wake after Sleep Onset 171.0 min. Sleep Efficiency (SE) 49 % Sleep Onset Latency (FLORES) 34.0 min. Number of Stage 1 Shifts None Awakenings 20 Stage Changes 73 Number of REM periods 4 REM 27.0 14 REM Latency 63.5 min. NREM 167.0 86 Body Position Analysis Supine Right Left Side Prone Vertical Total Sleep Time (min.) 129.8 46.5 63.8 110.31 0.0 0.0 Total Sleep Time (%) 43% 24% 33% 57 0% N/A% Total Sleep Time REM (min.) 0.0 15.0 12.0 None 0.0 0.0 Total Sleep Time NREM (min.) 83.7 31.5 51.8 None 0.0 0.0 Intermittent Wake (min.) 46.1 50.3 108.6 None 0.0 0.0 Total Sleep Period (%) 35% None None None None None Arousals Myoclonus (PLM) * Events Count Index Events Count Index Spontaneous 7 2 Events Awake (PLMW) 397 116.2 Respiratory 3 0.9 Events Asleep w/ Arousal (PLMA) 24 7.4 PLM 22 7 Events Asleep w/o Arousal (PLMS) 454 140.4 Snoring 2 1 Total Asleep 478 147.8 Total 34 11 Total 875 132 Respiratory Analysis * CA OA MA CH H RERA Total Count 0 0 0 0 5 0 5 Index 0.0 0.0 0.0 0 1.5 0 1.5 Mean Duration 0.0 0.0 0.0 0.00 50.1 0.0 50.1 Longest Duration 0.0 0.0 0.0 0.00 0.0 0.0 70.2 Respiratory Event Summary Total Supine ~Supine Right Left Prone REM NREM Apneas Count 0 0 0 0 0 N/A 0 0 Index 0.0 0 0 0.0 0.0 N/A 0 0 Hypopneas (4% Desat) Count 5 1 4 2 2 N/A 0 5 Index 1.5 0.7 2 2.6 1.9 N/A 0.0 1.8 Apneas & All Hypopneas Count 5 1 4 2 2 N/A 0 5 Index 1.5 1 2 3 2 N/A 0.0 1.8 Respiratory Events (Grip Assembler+All Hyp+RERA) Count 5 1 4 2 2 N/A 0 5 Index 1.5 1 2 2.6 1.9 N/A 0.0 1.8 Respiratory Related Arousal Count 3 1 3 2 1 N/A 0 3 Index 0.9 0 2 3 1 N/A 0 1 Snoring Analysis Supine Right Left Prone REM NREM Total Snore duration 1.3 min Snores count 31 8 4 N/A 0 43 43 Snore mean duration 1.8 Sec Snores index 22 10 4 N/A 0.0 15.4 13.3 TST with snoring (%) 0.7% Desaturation Event Summary: Minimum %SpO2 Event Count Mean/Min/Max Duration(sec.) Desaturation Index % Time In Bed > 90 21 37.8 / 9.0 / 60.0 3.9 85.3 86 - 90 1 20.5 / 20.5 / 20.5 1.1 14.7 81 - 85 0 N/A 0.0 0.0 76 - 80 0 N/A 0.0 0.0 71 - 75 0 N/A 0.0 0.0 66 - 70 0 N/A 0.0 0.0 61 - 65 0 N/A 0.0 0.0 56 - 60 0 N/A 0.0 0.0 51 - 55 0 N/A 0.0 0.0 < 50 0 N/A 0.0 0.0 Total REM NREM Awake <50% 0.0 min. 0.0 min. 0.0 min. 0.0 min. 51 - 60% 0.0 min. 0.0 min. 0.0 min. 0.0 min. 61 - 70% 0.0 min. 0.0 min. 0.0 min. 0.0 min. 71 - 80% 0.2 min. 0.0 min. 0.0 min. 0.2 min. 81 - 90% 55.7 min. 2.3 min. 44.6 min. 8.8 min. 91 - 100% 323.8 min. 24.6 min. 122.4 min. 176.8 min. Average 92 91 91 93 Minimum SpO2 80 90 87 80 Desaturation Event Index 3.3 0.0 1.8 5.0 # Desat. Events below 89% 1 N/A 1 N/A Time(%) with Saturation below 89% 2.1 0.0 1.8 0.4 Time(min.) with Saturation below 89% 8.0 0.0 6.7 1.4 Time (mins) REM (mins) NREM (mins) % of TST SpO2 Below 90% 5 N/A N5 9.9 SpO2 Below 88% 1 0 0 0 Heart Rate Analysis Min (bpm) Max (bpm) Average (bpm) Awake 34 214 68 NREM 34 100 65 REM 34 76 68 Overall 34 100 65 Supplemental O2 Values Minimum O2 level: None Value Start Time End Time Vp Genetic Comments Mr. Bustamante slept in the right, left and supine positions. Cardiac arrhythmia and PLM's noted, please see print outs. No bruxism noted. ASV was initiated at: EPAP MIN: +4 CMH2O EPAP MAX: +[id number] PS MIN: +4CMH2O PS MAX: +[id number] MAX PRESSURE +[id number] RATE: AUTO A medium Quattro Air full face mask by [employer] was used during titration for the majority of the night. During the last 1 and 1/2 hour he asked to use a [place] Fx nasal mask by [employer] .He awoke to use the restroom 2 times during the night. He stated that he did not think the Lunesta helped him. No changes in the settings were needed. ASV FINAL SETTINGS: EPAP MIN: +4CMH2O EPAP MAX +10FTO4S PS MIN: +4CMH20 PS MAX: +[id number] MAX PRESSURE: +[id number] RATE: AUTO The final report will be interpreted and signed by a sleep physician. The completed physician report will then be placed in the patient medical record. Therapy Event: Therapy (cm H20) 1 Total Time at Pressure (min.) 398.4 TST at Pressure (min.) 194.0 # Periods 1 Sleep Onset (min.) 33.4 REM Onset (min.) 96.9 Sleep Efficiency % 48 Wakefulness (%) 51.3 Wakefulness (min.) 204.4 NREM 1 (%) 4.5 NREM 1 (min.) 18.0 NREM 2 (%) 35.4 NREM 2 (min.) 141.0 NREM 3 (%) 2.0 NREM 3 (min.) 8.0 REM (%) 6.8 REM (min.) 27.0 # Arousals 34 Arousal Index 10.5 # Snore 43 Snore Index 13.3 AHI 1.5 AHI Supine 0.7 AHI Non-Supine 2.2 NREM AHI 1.8 REM AHI 0.0 RDI 1.5 # Obstructive 0 # Central Ap 0 # Mixed 0 # Hypopneas 5 RERAS 0 Total Respiratory Events 5 Time Below SpO2 89.00% (min.) 6.7 Mean NREM SpO2 (%) 91 Mean REM SpO2 (%) 91 Mean Sleep SpO2 (%) 91 Min NREM SpO2 (%) 87 Min REM SpO2 (%) 90 Position Supine (min.) 83.7 Position Non-supine (min.) 110.3 LM Index Sleep 147.8 LM Index NREM 155.2 LM Index REM 102.2 Mean Heart Rate (bpm) 65 Min Heart Rate (bpm) 34
--- NOTE | 2017-10-09 11:13 | POLYSOMNOGRAPH REPORT ---
CLINICAL DATA: A 72-year-old male with a BMI of 30, referred by myself and Dr. Galvan for an ASV titration. He has sleep apnea and had a split night study performed on 08/21/2017. He had treatment onset central apneic episodes which did not resolve with either CPAP or BiPAP. The patient did use Lunesta on the night of this ASV titration study with limited effect. SLEEP ARCHITECTURE: Total sleep period was 364 minutes. Total sleep time was 194 minutes divided between 167 minutes of non-REM sleep and 27 minutes of REM sleep. Sleep latency was delayed at 34 minutes. REM latency was 63.5 minutes. Sleep efficiency was 49%. Wake after sleep onset was 171 minutes. Sleep consisted of stage N1 9%, stage N2 73%, stage N3 4%, and REM 14%. AROUSAL DATA: Thirty four arousals recorded for an index of 11 per hour. PERIODIC LIMB MOVEMENT DATA: Severe PLMD was noted. There were 478 limb movements during sleep noted for an index of 147.8 per hour with arousal index of 7.4 per hour. RESPIRATORY DATA: AHI was 1.5. There were 5 hypopneic episodes with mean duration of 50 seconds. OXIMETRY DATA: No significant hypoxemia was seen. Oxygen ping was 87% during non-REM sleep. Mean saturation was 92%. Time below 88% was 1 minute. ECHOCARDIOGRAM: Heart rates ranged from 34-100 beats per minute. PVCs were noted. SCRAP STRIPPER HAND'S COMMENTS AND TREATMENT SUMMARY: The patient slept in the right, left, and supine position. He used a medium Quattro Air full facemask by [employer]; however, during the last hour and a half he switched to a [place] FX nasal mask by [employer]. He did not feel the Lunesta helped him with sleep. His final ASV settings were EPAP minimum 4, EPAP maximum 15, pressure support minimum 4, pressure support maximum 20, maximum pressure 25, rate auto. On those settings, he slept for 194 minutes with an AHI of 1.5. 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 RECOMMENDATIONS: The patient will be seen back in the sleep clinic to discuss institution of ASV. [place]
== END | disposition home or self-care (01) ==
LOC: C.NEUR 21:00
PROVIDERS: ATTEND Internal Medicine Pulmonary Disease
DX: G47.39 Other sleep apnea (principal)

== ENCOUNTER → 2017-12-09 | Outpatient (CLI) | payer OTHER ==
[2017-12-09 15:50] LABS: ALBUMIN 3.7 gm/dl (3.4-5.0); BLOOD UREA NITROGEN 35 mg/dl (7-18); CALCIUM 9.2 mg/dl (8.5-10.1); CARBON DIOXIDE 28 mmol/L (21-32); CREATININE 1.61 mg/dl (0.60-1.40); GLUCOSE 83 mg/dl (70-99); PHOSPHORUS 3.9 mg/dl (2.5-4.9); POTASSIUM 4.5 mmol/L (3.5-5.1); SODIUM 138 mmol/L (136-145)
== END | disposition home or self-care (01) ==
LOC: C.LABBC 11:53
PROVIDERS: ATTEND Internal Medicine Nephrology
DX: N18.3 Chronic kidney disease, stage 3 (moderate) (principal)